=== PATIENT | female | born 1950 | race Caucasian/White ===

== ENCOUNTER 2021-06-16 18:31 | Outpatient (CLI) | payer MEDICAID, SELFPAY ==
[2021-06-16 19:30] LABS: Basophils % 0.3 %; Eosinophils % 0.3 %; Lymphocytes # 1.5 10^3/uL (0.8-4.8); Lymphocytes % 19.4 %; Mean Corpuscular HGB Conc 24.5 g/dL (30.0-36.0); Mean Corpuscular Hemoglobin 16.2 pg (28.0-34.0); Mean Corpuscular Volume 66.2 fl (81-99); Mean Platelet Volume 9.9 fL (7.4-10.4); Monocytes # 0.6 10^3/uL (0.2-0.9); Monocytes % 7.4 %; Neutrophils # 5.44 10^3/uL (1.8-7.7); Neutrophils % 70.8 %; Nucleated Red Blood Cells # 0.1 /100WBC; Nucleated Red Blood Cells % 1.4 %; Platelet Count 518 10^3/cmm (130-400); Red Blood Count 2.22 10^6/uL (4.1-5.3); Red Cell Distribution Width 19.1 % (12.1-15.1); White Blood Count 7.7 10^3/uL (4.0-10.0)
[2021-06-16 19:52] LABS: Anion Gap 16.7 (5-19); Blood Urea Nitrogen 6 mg/dL (8-23); Calcium 8.6 mg/dL (8.5-10.5); Carbon Dioxide 22 mmol/L (22-29); Chloride 101 mmol/L (98-107); Glucose 138 mg/dL (65-115); Osmolality Calculated 282 mOsm/kg (285-295); Potassium 3.7 mmol/L (3.5-5.1); Sodium 136 mmol/L (136-145); Thyroid Stimulating Hormone 1.52 uIU/mL (0.27-4.20)
[2021-06-16 19:59] LABS: Hematocrit 14.7 % (37.0-47.0); Hemoglobin 3.6 g/dL (11.5-15.3)
== END 2021-06-16 18:32 | disposition home or self-care (01) ==
PROVIDERS: Family Provider Internal Medicine; Visit Provider Internal Medicine
DX: D50.9 Iron deficiency anemia, unspecified (principal); R91.8 Other nonspecific abnormal finding of lung field
CPT/HCPCS: 80048; 84443; 85025

== ENCOUNTER 2021-06-16 21:22 | Inpatient (IN) | payer MEDICAID, SELFPAY ==
--- NOTE | 2021-06-16 03:22 | XRR_ITS ---
PROCEDURE INFORMATION: Exam: XR Chest Exam date and time: 06/16/2021 3:22 AM Age: 70 years old Clinical indication: Pain; Chest pressure; Additional info: SOB TECHNIQUE: Imaging protocol: XR of the chest. Views: 1 view. COMPARISON: No relevant prior studies available. FINDINGS: The patient is rotated. There is some infiltrate within the left lung base. There appear to be small pleural effusions. There is no pneumothorax. The heart size is prominent which may be due to the AP portable technique. XR/XR chest 1V portable [id number] IMPRESSION: 1. Mild infiltrate within the left lung base. 2. There appear to be small pleural effusions. 3. Prominent heart size. Radiation Dose CTDIVOL = (mGy): DLP = (mGy-cm)
--- NOTE | 2021-06-16 21:27 | ECG_ITS ---
[facility] Test Date: 2021-06-16 Pat Name: Josiah Mohr Department: Room: Gender: Female Clinical Training Coordinator: : 1950 Requested By: Yoni Najera Order Number: [id number] Janeth MD: Rossana Martínez M.D. Measurements Intervals [place] Rate: 106 P: 46 AK: 141 QRS: 33 QRSD: 77 T: 33 QT: 346 QTc: 461 Interpretive Statements SINUS TACHYCARDIA MODERATE ST DEPRESSION [0.05+ mV ST DEPRESSION] No previous ECG available for comparison Electronically Signed On 06-17-2021 13:12:54 COOK CANDY by Rossana Martínez M.D. [id number]
[2021-06-16 21:30] VITALS: BP 141/79; PULSE 85; RESP 18; TEMP 36.4; O2SAT 98; BMI 26.8
[2021-06-16 21:32] LABS: Basophils % 0.1 %; Eosinophils % 0.3 %; Lymphocytes # 1.6 10^3/uL (0.8-4.8); Lymphocytes % 22.3 %; Mean Corpuscular HGB Conc 23.7 g/dL (30.0-36.0); Mean Corpuscular Volume 67.6 fl (81-99); Mean Platelet Volume 10.1 fL (7.4-10.4); Monocytes # 0.6 10^3/uL (0.2-0.9); Monocytes % 8.9 %; Neutrophils # 4.85 10^3/uL (1.8-7.7); Neutrophils % 67.2 %; Nucleated Red Blood Cells # 0.1 /100WBC; Nucleated Red Blood Cells % 1.7 %; Platelet Count 465 10^3/cmm (130-400); Red Blood Count 2.25 10^6/uL (4.1-5.3); Red Cell Distribution Width 19.2 % (12.1-15.1); White Blood Count 7.2 10^3/uL (4.0-10.0)
[2021-06-16 21:34] LABS: Hematocrit 15.2 % (37.0-47.0); Hemoglobin 3.6 g/dL (11.5-15.3)
[2021-06-16 21:47] LABS: INR 1.08 (0.8-1.2)
[2021-06-16 21:56] LABS: Alanine Aminotransferase 10 U/L (0-33); Albumin Level 3.7 g/dL (3.5-5.2); Alkaline Phosphatase 68 IU/L (35-105); Anion Gap 20.6 (5-19); Aspartate Amino Transferase 12 U/L (0-32); Blood Urea Nitrogen 6 mg/dL (8-23); Calcium 8.3 mg/dL (8.5-10.5); Carbon Dioxide 19 mmol/L (22-29); Chloride 99 mmol/L (98-107); Globulin 2.4 g/dL (1.3-4.6); Glucose 146 mg/dL (65-115); Osmolality Calculated 280 mOsm/kg (285-295); Potassium 3.6 mmol/L (3.5-5.1); Sodium 135 mmol/L (136-145); Total Bilirubin 0.3 mg/dL (0.15-1.2); Total Protein 6.1 g/dL (6.6-8.7)
[2021-06-16] MEDS: acetaminophen 325 mg Tablet 650 MG PO (22:27)
[2021-06-16] MEDS: diphenhydrAMINE 50 mg/mL SDV 1mL 12.5 MG IVP (22:28)
[2021-06-16] MEDS: sodium chloride 0.9% 100 mL Bag 50 ML IV (22:28)
--- NOTE | 2021-06-16 23:50 | P.HP_ITS ---
Providers/Chief Complaint Chief Complaint: Abnormal Labs History of Present Illness Josiah Mohr is a 70 year old female with prior history of anemia requiring blood and iron transfusions who is presenting to emergency room with complaints of generalized weakness and tiredness since last several weeks. He reports progressive worsening of her symptoms. She denies any associated rectal blood or black stool, nausea or vomiting, headache, chest pain, shortness of breath, fever or chills. She never had colonoscopies before. According to her she was never told before why she had anemia. The patient denies taking NSAIDs, blood thinners. No alcohol. Denies any weight loss. Review of Systems General: Reports: 10 or more systems reviewed and unremarkable except in HPI and below Medications/Allergies Allergies Allergy/AdvReac Type Severity Reaction Status Date / Time No Known Allergies Allergy Verified 06/16/21 21:29 Vitals/I&O/Wt Last Vital Signs Temp 97.6 F 06/16/21 21:30 Pulse 85 06/16/21 21:30 Resp 18 06/16/21 21:30 BP 141/79 06/16/21 21:30 Pulse Ox 98 06/16/21 21:30 Weight last 48 hrs Weight 75.296 kg Physical Exam Narrative: EXAM NARRATIVE: The patient is awake alert oriented. No acute distress. Mood and affect are appropriate. Responses are adequate. Normal speech. Skin warm and dry. Moist mucous brains Eyes PERRL, extraocular muscles are intact Neck supple. No JVD Lungs are clear to auscultation bilaterally. No wheezes or crackles Heart S1, S2, regular Abdomen soft, nontender, bowel sounds are present Extremities 2+ edema no cyanosis no calf tenderness bilaterally Neuro examination is nonfocal. Data : 06/16/21 21:22 06/16/21 21: Other Labs: Laboratory Results WBC 7.2 10^3/uL (4.0-10.0) 06/16/21 21: RBC 2.25 10^6/uL (4.1-5.3) L 06/16/21 21: Hgb 3.6 g/dL (11.5-15.3) L* 06/16/21 21: Hct 15.2 % (37.0-47.0) L* 06/16/21 21: MCV 67.6 fl (81-99) L 06/16/21 21: MCH 16.0 pg (28.0-34.0) L 06/16/21 21: MCHC 23.7 g/dL (30.0-36.0) L 06/16/21 21: RDW 19.2 % (12.1-15.1) H 06/16/21 21: Plt Count 465 10^3/cmm (130-400) H 06/16/21 21: MPV 10.1 fL (7.4-10.4) 06/16/21 21: Neut % (Auto) 67.2 % 06/16/21 21: Lymph % (Auto) 22.3 % 06/16/21 21: [place] % (Auto) 8.9 % 06/16/21 21: Eos % (Auto) 0.3 % 06/16/21 21: Baso % (Auto) 0.1 % 06/16/21 21: Neut # (Auto) 4.85 10^3/uL (1.8-7.7) 06/16/21 21: Lymph # (Auto) 1.6 10^3/uL (0.8-4.8) 06/16/21 21: [place] # (Auto) 0.6 10^3/uL (0.2-0.9) 06/16/21 21: Eos # (Auto) 0.0 10^3/uL (0.0-0.8) 06/16/21 21: Baso # (Auto) 0.0 10^3/uL (0.0-0.1) 06/16/21: Nucleated RBC % (auto) 1.7 % 06/16/21: Nucleated RBCs # 0.1 /100WBC 06/16/21 21: PT 14.30 SECONDS (12.1-14.9) 06/16/21 21: INR 1.08 (0.8-1.2) 06/16/21 21: APTT 20.0 SECONDS (23.9-36.7) L 06/16/21 21: Sodium 135 mmol/L (136-145) L 06/16/21 21: Potassium 3.6 mmol/L (3.5-5.1) 06/16/21: Chloride 99 mmol/L (98-107) 06/16/21 21: Carbon Dioxide 19 mmol/L (22-29) L 06/16/21 21: Anion Gap 20.6 (5-19) H 06/16/21 21: BUN 6 mg/dL (8-23) L 06/16/21 21: Creatinine 0.6 mg/dL (0.5-0.9) 06/16/21 21: GFR Calculation Not Reportable 06/16/21 21: Glucose 146 mg/dL (65-115) H 06/16/21 21: Calculated Osmolality 280 mOsm/kg (285-295) L 06/16/21 21: Calcium 8.3 mg/dL (8.5-10.5) L 06/16/21 21: Total Bilirubin 0.3 mg/dL (0.15-1.2) 06/16/21 21: AST 12 U/L (0-32) 06/16/21: ALT 10 U/L (0-33) 06/16/21 21: Alkaline Phosphatase 68 IU/L (35-105) 06/16/21 21: Total Protein 6.1 g/dL (6.6-8.7) L 06/16/21: Albumin 3.7 g/dL (3.5-5.2) 06/16/21 21: Globulin 2.4 g/dL (1.3-4.6) 06/16/21 21: Blood Type O Negative 06/16/21 21: Rho(D) Type Negative 06/16/21 21: Antibody Screen Negative 06/16/21 21: Crossmatch See Detail 06/16/21 21: Impressions Chest X-Ray 06/16/21 03:22 IMPRESSION: 1. Mild infiltrate within the left lung base. 2. There appear to be small pleural effusions. 3. Prominent heart size. Radiation Dose CTDIVOL = (mGy): DLP = (mGy-cm) A&P Assessment and plan (1) Microcytic anemia: Status: Acute (2) Infiltrate noted on imaging study: Status: Acute Additional A&P Information This is a 70-year-old female presenting with anemia. It is microcytic. Iron deficiency is suspected. 3 units of PRBCs are ordered in the emergency room. She is currently stable. She will go to [facility] for observation. Will order anemia work-up including fecal occult blood testing. Depending on the findings additional testing might be necessary. Lung infiltrate. The patient does not have any evidence of infection at this time. We will check her procalcitonin level. Probably she will need follow-up chest x-ray in several weeks by the primary care physician. Please notify her prior to discharge. DVT prophylaxis. Teds and SCDs. No anticoagulation due to her severe anemia. CODE STATUS. She wants to be full code. The plan of care was discussed with the patient. She verbalized understanding and agreement. Attestations Medical Necessity Statement*: Observation Coding Level of Care Code Acute Field Producer for Noel Huerta Diagnoses Microcytic anemia D50.9 Infiltrate noted on imaging study R93.89
[2021-06-17] VITALS (14 sets, daily range): BP systolic 128–164; BP diastolic 60–90; PULSE 81–104; RESP 16–32; TEMP 36.8–37.5; O2SAT 91–99; BMI 27.8
[2021-06-17 01:20] LABS: Ferritin 8 ng/mL (15-150); Iron 9 ug/dL (37-145); Total Iron Binding Capacity 445 mcg/dl; Unsaturated Iron Binding 436 ug/dL (112-347)
[2021-06-17 01:29] LABS: Vitamin B12 495 pg/mL (232-1245)
--- NOTE | 2021-06-17 01:34 | W.ED.GENADLT ---
HPI - General Adult General: Chief complaint: General Medical Stated complaint: Abnormal Labs History of Present Illness: HPI narrative: 70-year-old retirement patient presents because of abnormal labs. She states that she has been generally weak, and had some palpitations. Her hemoglobin was found to be between 3 and 4 at the retirement. No known source of bleeding or hemorrhage. Onset (ago): unknown Radiation: other Quality: other Relieving factors: none Exacerbating factors: none Associated symptoms: Reports confusion, dyspnea and short of breath; Deny chest pain, cough, fevers/chills, headache(s) or vomiting Treatments prior to arrival: none Review of Systems Const: Denies: fever(s) Card: Denies: chest pain Resp: Reports: dyspnea GI: Denies: abdominal pain, vomiting, rectal pain or hematochezia Neuro: Reports: confusion; Denies: headache(s) Physical Exam Const: COMMON NORMALS: alert GENERAL APPEARANCE: cooperative, comfortable and frail appearing HENMT: COMMON NORMALS: normocephalic HEAD & SCALP: normocephalic Eye: COMMON NORMALS: Equal, round and reactive pupils present and EOMs intact bilaterally PUPIL: Yes Equal, round and reactive pupils present Chest: COMMONS NORMALS: normal inspection of the chest Resp: COMMON NORMALS: clear to auscultation bilaterally EFFORT & INSPECTION: Yes tachypneic and Yes uses accessory muscles AUSCULTATION: clear to auscultation bilaterally Cardio: COMMON NORMALS: regular rhythm RATE: tachycardic RHYTHM: regular rhythm GI: COMMON NORMALS: Normal to inspection, nondistended, normoactive bowel sounds present, Soft to palpation and non-tender PALPATION: Yes Soft to palpation : COMMON NORMALS: Yes no CVA tenderness BLADDER/KIDNEY EXAM: Yes no CVA tenderness Back/Pelvis: COMMON NORMALS: no CVA tenderness Neuro: SENSORIUM/ORIENTATION: Yes alert Course Consultations: Consultation #1: bubba Vital Signs: Vital signs: Vital Signs Temperature 99.1 F 06/17/21 00:05 Pulse Rate 103 H 06/17/21 00:05 Respiratory Rate 32 H 06/17/21 00:05 Blood Pressure 128/60 06/17/21 00:05 Pulse Oximetry 93 06/17/21 00:05 MDM - General Adult MDM Narrative: Medical decision making narrative: Hemoglobin found to be 3.6. Microcytic. No definite cause identified. No gross hemorrhage here. Will guaiac stool. She has been crossmatched 3 units from the ER. Transfusion started in the ER. She will be observed. Lab Data: Labs: Lab Results 06/16/21 06/16/21 06/16/21 21:22 21:22 21:22 WBC 7.2 10^3/uL 10^3/ uL (4.0-10.0) RBC 2.25 10^6/uL L 10 ^6/uL (4.1-5.3) Hgb 3.6 g/dL L* g/dL (11.5-15.3) Hct 15.2 % L* % (37.0-47.0) MCV 67.6 fl L fl (81-99) MCH 16.0 pg L pg (28.0-34.0) MCHC 23.7 g/dL L g/dL (30.0-36.0) RDW 19.2 % H % (12.1-15.1) Plt Count 465 10^3/cmm H 10 ^3/cmm (130-400) MPV 10.1 fL fL (7.4-10.4) Neut % (Auto) 67.2 % % Lymph % (Auto) 22.3 % % [place] % (Auto) 8.9 % % Eos % (Auto) 0.3 % % Baso % (Auto) 0.1 % % Neut # (Auto) 4.85 10^3/uL 10^3 /uL (1.8-7.7) Lymph # (Auto) 1.6 10^3/uL 10^3/ uL (0.8-4.8) [place] # (Auto) 0.6 10^3/uL 10^3/ uL (0.2-0.9) Eos # (Auto) 0.0 10^3/uL 10^3/ uL (0.0-0.8) Baso # (Auto) 0.0 10^3/uL 10^3/ uL (0.0-0.1) Nucleated RBC % (a uto) 1.7 % % Nucleated RBCs # 0.1 /100WBC /100W BC PT INR APTT Sodium 135 mmol/L L mmol /L (136-145) Potassium 3.6 mmol/L mmol/L (3.5-5.1) Chloride 99 mmol/L mmol/L (98-107) Carbon Dioxide 19 mmol/L L mmol/ L (22-29) Anion Gap 20.6 H (5-19) BUN 6 mg/dL L mg/dL (8-23) Creatinine 0.6 mg/dL mg/dL (0.5-0.9) GFR Calculation Not Reportable Glucose 146 mg/dL H mg/dL (65-115) Calculated Osmolal ity 280 mOsm/kg L mOs m/kg (285-295) Calcium 8.3 mg/dL L mg/dL (8.5-10.5) Iron TIBC % Saturation Unsat Iron Binding Ferritin Total Bilirubin 0.3 mg/dL mg/dL (0.15-1.2) AST 12 U/L U/L (0-32) ALT 10 U/L U/L (0-33) Alkaline Phosphata se 68 IU/L IU/L (35-105) Total Protein 6.1 g/dL L g/dL (6.6-8.7) Albumin 3.7 g/dL g/dL (3.5-5.2) Globulin 2.4 g/dL g/dL (1.3-4.6) Vitamin B12 Blood Type O Negative Rho(D) Type Negative Antibody Screen Negative Crossmatch See Detail 06/16/21 06/16/21 06/16/21 21:22 21:22 21:22 WBC RBC Hgb Hct MCV MCH MCHC RDW Plt Count MPV Neut % (Auto) Lymph % (Auto) [place] % (Auto) Eos % (Auto) Baso % (Auto) Neut # (Auto) Lymph # (Auto) [place] # (Auto) Eos # (Auto) Baso # (Auto) Nucleated RBC % (a uto) Nucleated RBCs # PT 14.30 SECONDS SEC ONDS (12.1-14.9) INR 1.08 (0.8-1.2) APTT 20.0 SECONDS L SE CONDS (23.9-36.7) Sodium Potassium Chloride Carbon Dioxide Anion Gap BUN Creatinine GFR Calculation Glucose Calculated Osmolal ity Calcium Iron 9 ug/dL L ug/dL (37-145) TIBC 445 mcg/dl mcg/dl % Saturation 2.0 % L % (20-50) Unsat Iron Binding 436 ug/dL H ug/dL (112-347) Ferritin 8 ng/mL L ng/mL (15-150) Total Bilirubin AST ALT Alkaline Phosphata se Total Protein Albumin Globulin Vitamin B12 495 pg/mL pg/mL (232-1245) Blood Type Rho(D) Type Antibody Screen Crossmatch Discharge Plan Discharge Patient Disposition: Placed in Observation Clinical Impression: Microcytic anemia Coding Level of Care Code ED Commercial Property Administrator for Noel Fwd Exam Comprehensive
--- NOTE | 2021-06-17 07:05 | PC.NURSE ---
report recieved assumed care.
--- NOTE | 2021-06-17 07:22 | PC.NURSE ---
while at bedside pt is in nad.
[2021-06-17] MEDS: calcium gluconate 0.1 gm/mL 10% SDV 10mL 1 GM IVP (07:28)
[2021-06-17 07:46] LABS: Basophils % 0.3 %; Eosinophils # 0.1 10^3/uL (0.0-0.8); Eosinophils % 0.7 %; Hematocrit 24.3 % (37.0-47.0); Lymphocytes # 1.4 10^3/uL (0.8-4.8); Lymphocytes % 18.7 %; Mean Corpuscular HGB Conc 28.8 g/dL (30.0-36.0); Mean Corpuscular Hemoglobin 21.6 pg (28.0-34.0); Mean Platelet Volume 9.8 fL (7.4-10.4); Monocytes # 0.7 10^3/uL (0.2-0.9); Monocytes % 9.3 %; Neutrophils # 4.77 10^3/uL (1.8-7.7); Neutrophils % 66.1 %; Nucleated Red Blood Cells # 0.2 /100WBC; Nucleated Red Blood Cells % 2.5 %; Platelet Count 411 10^3/cmm (130-400); Red Blood Count 3.24 10^6/uL (4.1-5.3); Red Cell Distribution Width 22.1 % (12.1-15.1); White Blood Count 7.2 10^3/uL (4.0-10.0)
[2021-06-17 08:08] LABS: Anion Gap 14.5 (5-19); Blood Urea Nitrogen 8 mg/dL (8-23); Calcium 8.2 mg/dL (8.5-10.5); Carbon Dioxide 23 mmol/L (22-29); Chloride 103 mmol/L (98-107); Glucose 113 mg/dL (65-115); Osmolality Calculated 283 mOsm/kg (285-295); Potassium 3.5 mmol/L (3.5-5.1); Sodium 137 mmol/L (136-145)
[2021-06-17 08:13] LABS: Procalcitonin 0.07 ng/mL (0-0.5)
--- NOTE | 2021-06-17 08:16 | PC.NURSE ---
blood infusion complete.
--- NOTE | 2021-06-17 08:16 | PC.NURSE ---
paged hospitalist to inform him of pt breathing that is labored and tachypniec.
[2021-06-17] MEDS: acetaminophen 325 mg Tablet 650 MG PO (08:29)
[2021-06-17] MEDS: docusate sodium 100 mg Capsule PO ×2 (08:30→17:29)
--- NOTE | 2021-06-17 08:47 | PC.NURSE ---
PC FROM DR. ALANIS INFORMED HIM OF PT BREATHING STATUS AND SWELLING VO FOR IV 20MG LASIX ONE TIME.
[2021-06-17] MEDS: FUROsemide 10 mg/mL SDV 2mL 20 MG IVP ×2 (09:12→18:18)
--- NOTE | 2021-06-17 09:12 | PC.NURSE ---
PT PROVIDED WITH ORANGE JUICE AND ASSISTED WITH OPENING AND PROVIDED WITH STRAW. PT TABLE ADJUSTED PER PT REQUEST.
--- NOTE | 2021-06-17 11:39 | PC.NURSE ---
while at doorway pt is in nad. pt is resting in bed.
[2021-06-17 12:12] LABS: Folate Level 8.2 ng/mL (4.8-37.3)
--- NOTE | 2021-06-17 12:18 | PC.NURSE ---
attempted report nurse unavailable.
[2021-06-17] MEDS: FUROsemide 10 mg/mL SDV 4mL 40 MG IVP (13:32)
[2021-06-17 14:29] LABS: Estmated Average Glucose 94; Hemoglobin A1C 4.9 % (4.0-6.0)
[2021-06-17] MEDS: iron sucrose 200 MG in sodium chloride 0.9% (100 ml) 100 ML 220 MG IV (15:30)
--- NOTE | 2021-06-17 15:39 | PM.CONSULT ---
Providers/Reason For Consult Consulting Physician/Specialty*: Amol Luu MD Reason for Consult*: Iron deficiency anemia Requesting Physician: Dr. Doll Attending Physician: Kedar Doll MD History of Present Illness History of Present Illness Chief Complaint: Generalized weakness History of present illness: Ms.Byrdilla Mohr is a pleasant 70 year old female presented to the emergency department with generalized weakness and has been having this condition for the past several weeks or so. Patient was admitted to the hospitalist service with a hemoglobin of 3.6 g patient required 3 units of packed RBC so far and current hemoglobin is 7.0. There is no evidence of hematemesis or bleeding per rectum. Patient apparently never had endoscopies before. She never had a hematology consultation in the past. She also denies history of peptic ulcer disease. General surgery was consulted for further evaluation potential care Review of Systems General: Reports: 10 or more systems reviewed and unremarkable except in HPI and below Meds/Allergies Home Medications and Allergies Home Medications Medication Instructions Recorded Confirmed Last Taken Type acetaminophen 650 mg PO Q4H PRN 06/17/21 06/17/21 06/12/21 History aspirin 81 mg PO DAILY 06/17/21 06/17/21 06/16/21 History bisacod[address] DAILY PRN 06/17/21 06/17/21 Unknown History bismuth subsalicylate [Bismuth] 524 mg PO Q1H PRN 06/17/21 06/17/21 Unknown History calcium carbonate-vitamin D3 1 cap PO BID 06/17/21 06/17/21 06/16/21 History furosemide [Lasix] 20 mg PO DAILY 06/17/21 06/17/21 06/16/21 History loratadine 10 mg PO DAILY 06/17/21 06/17/21 06/16/21 History magnesium hydroxide [Milk of 30 ml PO DAILY PRN 06/17/21 06/17/21 Unknown History Magnesia] risperidone 0.5 mg PO BID 06/17/21 06/17/21 06/16/21 History sodium phosphates [Fleet Enema] [address] DAILY PRN 06/17/21 06/17/21 Unknown History Allergies Allergy/AdvReac Type Severity Reaction Status Date / Time No Known Allergies Allergy Verified 06/17/21 16:24 Current Medications Current Medications Generic Name Dose Route Start Last Admin Trade Name Freq PRN Reason Stop Dose Admin Acetaminophen 650 mg 06/16/21 23:51 06/17/21 08:29 Acetaminophen 325 Mg Tablet PO 650 mg Q6H PRN Administration Mild/Mod Pain Or Temp >/= 101 Docusate Sodium 100 mg 06/17/21 09:00 06/17/21 08:30 Docusate Sodium 100 Mg Capsule PO 100 mg BID SUSAN Administration Iron Sucrose 200 mg/ Sodium 110 mls @ 220 mls/hr 06/17/21 16:00 06/17/21 15:30 Chloride IV 06/21/21 16:29 220 mls/hr Q24H SUSAN Administration Vitals/I&O/Wt Last Vital Signs Temp 98.8 F 06/17/21 12:57 Pulse 99 06/17/21 12:57 Resp 18 06/17/21 12:57 BP 154/77 06/17/21 12:57 Pulse Ox 99 06/17/21 12:57 06/17/21 06/17/21 06/17/21 06:59 14:59 22:59 Intake Total 700 / 700 0 / 0 Output Total 950 / 950 Balance 700 / 700 -950 / -950 Weight last 48 hrs Weight 172 lb 4 oz Weight 166 lb Physical Exam Const: COMMON NORMALS: no acute distress and patient oriented x3 GENERAL APPEARANCE: cooperative ORIENTATION/CONSCIOUSNESS: Yes awake, Yes oriented to person, Yes oriented to place and Yes oriented to time HENMT: COMMON NORMALS: normocephalic HEAD & SCALP: normocephalic Eye: COMMON NORMALS: Equal, round and reactive pupils present and no scleral icterus PUPIL: Yes Equal, round and reactive pupils present Lymph: LYMPHATIC: no lymphadenopathy noted Chest: COMMONS NORMALS: normal inspection of the chest Resp: COMMON NORMALS: normal respiratory effort and clear to auscultation bilaterally AUSCULTATION: clear to auscultation bilaterally Cardio: COMMON NORMALS: S1 normal heart sound present and S2 normal heart sound present; negative for No murmurs present (Cardio) HEART SOUNDS: S1 normal heart sound present and S2 normal heart sound present GI: COMMON NORMALS: Soft to palpation; negative for No hepatosplenomegaly present INSPECTION: Yes normal to inspection PALPATION: Yes Soft to palpation, No Firmness to palpation present (GI), No Tenderness to palpation present (GI), No Guarding due to palpation present (GI), No Rigid due to palpation and No No hepatosplenomegaly present Neuro: COMMON NORMALS: patient oriented x3 SENSORIUM/ORIENTATION: Yes oriented to person, Yes oriented to place and Yes oriented to time Psych: COMMON NORMALS: mental status grossly normal Skin: COMMON NORMALS: no rashes or lesions noted GENERAL SKIN EXAM: no rashes or lesions noted A&P Assessment and plan (1) Microcytic anemia: After thorough history physical examination and reviewing the chart. I would recommend the following from surgical standpoint of view: 1-Hematology consultation 2-patient will require at some point elective EGD and colonoscopy as an outpatient basis,I do not see an indication for urgency to perform endoscopies particularly that the patient does not demonstrate any evidence of GI bleeding. 3-we will plan to see the patient as a follow-up as an outpatient 4-I will make myself available for further questions or concerns Patient can have soft GI diet Thank you for consulting general surgery to participate taking care Status: Acute Consult Attestations Medical Necessity Statement: Per admitting service Time Spent in Patient Care: 16 - 35 minutes (>than 50% of time spent in counselling and/or direct pt care on unit). Coding Level of Care Code Acute Junior Staff Accountant for Chg Fwd Diagnoses Microcytic anemia D50.9
--- NOTE | 2021-06-17 17:13 | P.PN_ITS ---
Subjective Subjective: Interval history: Patient was seen and examined this morning, was slightly short of breath after transfusion. Received 60 of IV Lasix. Post that SOB has improved Medications: Reviewed: Yes Vitals/I&O/Wt Last Vital Signs Temp 98.4 F 06/17/21 16:00 Pulse 97 06/17/21 16:00 Resp 17 06/17/21 16:00 BP 157/84 06/17/21 16:00 Pulse Ox 98 06/17/21 16:00 06/17/21 06/17/21 06/17/21 06:59 14:59 22:59 Intake Total 700 / 700 0 / 0 110 / 110 Balance 700 / 700 0 / 0 110 / 110 Weight last 48 hrs Weight 78.131 kg Weight 75.296 kg Physical Exam Const: COMMON NORMALS: patient oriented x3 HENMT: COMMON NORMALS: normocephalic and atraumatic HEAD & SCALP: normocephalic and atraumatic Resp: COMMON NORMALS: clear to auscultation bilaterally EFFORT & INSPECTION: Yes symmetric chest movement AUSCULTATION: clear to auscultation bilaterally Cardio: COMMON NORMALS: regular rate, regular rhythm, S1 normal heart sound present, S2 normal heart sound present, No gallops present (Cardio), No murmurs present (Cardio), No rub (Cardio) and Peripheral pulses 2+ throughout RATE: regular rate RHYTHM: regular rhythm HEART SOUNDS: S1 normal heart sound present and S2 normal heart sound present PERIPHERAL PULSES: Peripheral pulses 2+ throughout GI: COMMON NORMALS: Normal to inspection, nondistended, normoactive bowel sounds present, Soft to palpation, non-tender, No hepatosplenomegaly present and no masses AUSCULTATION: Yes normoactive bowel sounds PALPATION: Yes Soft to palpation and Yes No hepatosplenomegaly present RECTAL EXAM: deferred Extremity: COMMON NORMALS: no clubbing, cyanosis or edema and no pedal edema Neuro: COMMON NORMALS: patient oriented x3 Data : 06/17/21 07:22 06/17/21 07:22 A&P Assessment and plan (1) Microcytic anemia: Microcytic iron deficiency anemia: Serum iron:9, TIBC:445, percent saturation:2, ferritin:8 Serum folate:8.2 Serum vitamin B12: Status post 4 unit PRBC transfusion IV iron x5 doses ordered Patient will need to follow-up with hematology as an outpatient for further work-up of microcytic iron deficiency anemia rule out possible malignancy including MDS. Patient will need EGD and colonoscopy as an outpatient.General surgery input appreciated. FOBT Ferrous sulfate 325 mg p.o. daily Continue to monitor CBC Status: Acute (2) Infiltrate noted on imaging study: Status: Acute Additional A&P Information This is a 70-year-old female presenting with anemia. It is microcytic. Iron deficiency is suspected. 3 units of PRBCs are ordered in the emergency room. She is currently stable. She will go to [facility] for observation. Will order anemia work-up including fecal occult blood testing. Depending on the findings additional testing might be necessary. Lung infiltrate. The patient does not have any evidence of infection at this time. We will check her procalcitonin level. Probably she will need follow-up chest x-ray in several weeks by the primary care physician. Please notify her prior to discharge. DVT prophylaxis. Teds and SCDs. No anticoagulation due to her severe anemia. CODE STATUS. She wants to be full code. The plan of care was discussed with the patient. She verbalized understanding and agreement. Attestations Medical Necessity Statement*: Patient is to be in hospital for management of severe symptomatic anemia. Coding Level of Care Code Acute Braider Operator for Noel Huerta Diagnoses Microcytic anemia D50.9 Infiltrate noted on imaging study R93.89
[2021-06-17] MEDS: sennosides 8.6 mg Tablet 17.2 MG PO (20:35)
[2021-06-18] VITALS (7 sets, daily range): BP systolic 115–142; BP diastolic 68–77; PULSE 80–120; RESP 16–18; TEMP 36.6–37.4; O2SAT 91–97
[2021-06-18] MEDS: sodium chloride 0.9% (100 ml) 100 ML (05:12)
[2021-06-18 06:25] LABS: Basophils # 0.1 10^3/uL (0.0-0.1); Basophils % 0.5 %; Eosinophils # 0.2 10^3/uL (0.0-0.8); Eosinophils % 1.5 %; Hemoglobin 9.7 g/dL (11.5-15.3); Lymphocytes # 1.3 10^3/uL (0.8-4.8); Lymphocytes % 12.3 %; Mean Corpuscular HGB Conc 29.4 g/dL (30.0-36.0); Mean Corpuscular Volume 78.4 fl (81-99); Mean Platelet Volume 9.3 fL (7.4-10.4); Monocytes # 0.8 10^3/uL (0.2-0.9); Neutrophils % 75.9 %; Nucleated Red Blood Cells # 0.1 /100WBC; Nucleated Red Blood Cells % 1.2 %; Platelet Count 336 10^3/cmm (130-400); Red Blood Count 4.21 10^6/uL (4.1-5.3); Red Cell Distribution Width 22.1 % (12.1-15.1); White Blood Count 10.5 10^3/uL (4.0-10.0)
[2021-06-18 06:44] LABS: Alanine Aminotransferase 9 U/L (0-33); Albumin Level 3.3 g/dL (3.5-5.2); Alkaline Phosphatase 58 IU/L (35-105); Anion Gap 13.2 (5-19); Aspartate Amino Transferase 13 U/L (0-32); Blood Urea Nitrogen 6 mg/dL (8-23); Carbon Dioxide 25 mmol/L (22-29); Chloride 105 mmol/L (98-107); Globulin 2.7 g/dL (1.3-4.6); Glucose 105 mg/dL (65-115); Osmolality Calculated 288 mOsm/kg (285-295); Potassium 3.2 mmol/L (3.5-5.1); Sodium 140 mmol/L (136-145)
[2021-06-18 07:02] LABS: Calcium 8.1 mg/dL (8.5-10.5)
[2021-06-18 07:49] LABS: Folate Level 10.1 ng/mL (4.8-37.3)
[2021-06-18 07:50] LABS: Vitamin B12 366 pg/mL (232-1245)
[2021-06-18] MEDS: docusate sodium 100 mg Capsule PO (08:17)
[2021-06-18] MEDS: ferrous sulfate EC 325 mg Tablet PO (08:18)
--- NOTE | 2021-06-18 09:44 | PC.CHAP ---
Pastoral Care Encounter/Spiritual Assessment Type of Contact [] Declined outpatient coding specialist visit [] Patient/Family/Request visit [] Outpatient visit [] Follow-up visit [] Physician referral [] Code/Alert [x] Routine visit [] Staff referral [] Actively dying [] Patient sleeping [] Family support [] [] Out of room [] Palliative care [] [] Receiving care in room [] Pre-surgical visit [] Trauma [] Long length of stay [] ICU visit [] Other: Relational/Emotional Strength [x] Patient feels connected with others/family/visitors/staff [] Distress [] Loneliness/isolation [] Abandonment Spirituality of Patient [] Person of Melvi [] Attends Voodoo of their Melvi [x] Believes in Prayer [] Reads Bible or Baptism materials [] There are Spiritual issues to be addressed Live Hanger Interventions [x] Prayer [x] Active listening [] Non-anxious presence [] Spiritual/emotional support [] Crisis/trauma care [] Spiritual counseling [] Bereavement support [] Provided bereavement packet [] Provided Bible/devotional materials [] Provided toy/stuffed animal, coloring book to patient or family member [] Provided Communion [] Anointing/[place] [] Salvation [x] Completed spiritual assessment [] Other: Impact on Illness or Injury [] Angry [] Fearful [] Anxious [] Often cries [] Exhaustion [] Unable to work [] Unable to attend gnosticist [] Unable to walk/stand [] Unable to read [] Unable to drive [] Unable to eat/drink [] Unable to sleep [] Unable to be with family [] Patient intubated [] Other: Summary reported mental issues to nurses Time spent with patient 5 favio
--- NOTE | 2021-06-18 10:31 | CT_ITS ---
WS: [id number] CT ABDOMEN PELVIS TECHNIQUE: Noncontrast CT of the abdomen and pelvis with coronal and sagittal reformatted images. CLINICAL INFORMATION: severe anemia COMPARISON: DLP: 1417.[address] scans at [facility] use at least one of these dose optimization techniques: automated e xposure control; mA and/or kV adjustment per patient size (includes targeted exams where dose is matc hed to clinical indication); or iterative reconstruction. FINDINGS: Small left greater than right pleural effusions. Bibasilar atelectasis. Large esophageal hiatal herni a with intrathoracic stomach. Noncontrast liver is normal. Normal noncontrast gallbladder. Fatty atro phy of the pancreas. Adrenal glands are normal. No hydronephrosis in either kidney. Fat-containing um bilical hernia. Mild diffuse bladder wall thickening can be seen with chronic cystitis. Sigmoid diverticulosis. No ev idence of acute diverticulitis. Mild transverse colon constipation. Normal appendix in the right lowe r quadrant. Normal caliber abdominal aorta. Aortic calcification. Adrenal glands are normal. No obstr ucting renal or ureteral calculi. Pelvic phleboliths. CT/CT abdomen pelvis wo con [id number] IMPRESSION: 1. Small left and tiny right pleural effusion with bibasilar atelectasis. 2. Large esophageal hiatal hernia with intrathoracic stomach. 3. No hydronephrosis in either kidney. 4. Mild transverse colon constipation. 5. Diffuse bladder wall thickening can be seen with chronic cystitis. 6. No other significant findings.
--- NOTE | 2021-06-18 11:39 | USCV_ITS ---
Josiah Mohr Age: 70 Gender: F : 1950 Exam Date: 06/18/2021 15:41 Ordering Phys: Xavier Dewey MD Technologist: Herlinda Gonzalez Exam Location: [facility] [place]_ Indication: RUE SWELLING HISTORY: Upper extremity swelling. PROCEDURES: Venous duplex imaging was performed in only the right upper extremity. The following venous structures were evaluated: internal jugular vein, subclavian vein, axillary vein, and brachial veins. In addition, the basilic vein, cephalic vein, radial vein, and ulnar vein. Serial compression, augmentation maneuvers, and spectral Doppler flow evaluation were performed. FINDINGS: No evidence of deep vein thrombosis or superficial thrombophlebitis in the right upper extremity. CONCLUSIONS No evidence of thrombus of the right upper extremity veins. Alberto Miles MD (Electronically Signed) Final Date: 18 June 2021 16:25 S
--- NOTE | 2021-06-18 14:30 | PM.DCS ---
Discharge Providers Date of Admission: 06/17/21 15:00 Date of Discharge: June 18, 2021 Attending Provider at Admission: Kedar Doll MD Attending Provider at Discharge: Xavier Dewey MD Diagnoses at Discharge Discharge Diagnosis (1) Microcytic anemia: Status: Acute (2) Infiltrate noted on imaging study: Status: Acute Reason for Visit Reason for Visit: Abnormal Labs Hospital Course Hospital Course This is a 70-year-old female with a past medical history of iron deficiency anemia requiring blood and iron transfusions, who presents [facility] from [facility] due to concerns for generalized weakness Patient presents to [facility] for generalized malaise secondary to severe iron deficiency anemia, history of iron 9, ferritin 8, TIBC 445, percent saturation 2, hemoglobin admission was 3.6, status post 4 units PRBC, patient clinically improved, CT of the abdomen pelvis showed large esophageal hiatal hernia with intrathoracic stomach, no complaints of abdominal pain, no clinical signs of incarcerated hernia. General surgery was consulted, general surgery recommended outpatient follow-up for consideration of EGD colonoscopy I discharged her on Protonix and Carafate. Her aspirin has been discontinued. Advised [facility] to monitor hemoglobin the next 48 hours. Monitor for bloody or black stools. If hemoglobin less than 7 or if any bloody or black stools or hemodynamic compromise bring back to the emergency room. I have also discharged on 3 remaining doses of IV Venofer. Patient will follow up with hematology oncology as outpatient in the next few days. Physical Exam Const: COMMON NORMALS: no acute distress and patient oriented x3 Resp: COMMON NORMALS: normal respiratory effort, No retractions, No use of accessory muscles and clear to auscultation bilaterally AUSCULTATION: clear to auscultation bilaterally Cardio: COMMON NORMALS: regular rate, regular rhythm, S1 normal heart sound present and S2 normal heart sound present RATE: regular rate RHYTHM: regular rhythm HEART SOUNDS: S1 normal heart sound present and S2 normal heart sound present GI: COMMON NORMALS: Normal to inspection, nondistended, normoactive bowel sounds present, Soft to palpation and non-tender PALPATION: Yes Soft to palpation Extremity: COMMON NORMALS: no pedal edema Neuro: COMMON NORMALS: patient oriented x3 Discharge Data Data Completed and Pending: Completed Studies During Hospitalization Category Date Time Status CT abdomen pelvis wo con [id number] Rout ine Cat Scan 06/18/21 10:31 Completed XR chest 1V morales ble [id number] Stat Exams 06/16/21 03:22 Completed Pending at discharge Category Date Time Status Complete Blood Co unt w/Auto AM LABS Lab 06/19/21 04:00 Ordered Complete Blood Co unt w/Auto AM LABS Lab 06/20/21 04:00 Ordered Comprehensive Met abolic Panel AM LA BS Lab 06/19/21 04:00 Ordered Comprehensive Met abolic Panel AM LA BS Lab 06/20/21 04:00 Ordered Immunochemical Fe rk OCB Routine Lab 06/16/21 23:54 [place] [id number] Routin e Ultrasound 06/18/21 11:39 Ordered Labs from last 24 hours 06/18/21 06/18/21 06/18/21 06:01 06:01 06:01 WBC 10.5 H RBC 4.21 Hgb 9.7 L D Hct 33.0 L D MCV 78.4 L MCH 23.0 L MCHC 29.4 L RDW 22.1 H Plt Count 336 MPV 9.3 Neut % (Auto) 75.9 Lymph % (Auto) 12.3 Gulf % (Auto) 8.0 Eos % (Auto) 1.5 Baso % (Auto) 0.5 Neut # (Auto) 8.00 H Lymph # (Auto) 1.3 Gulf # (Auto) 0.8 Eos # (Auto) 0.2 Baso # (Auto) 0.1 Nucleated RBC % (a uto) 1.2 Nucleated RBCs # 0.1 Sodium 140 Potassium 3.2 L Chloride 105 Carbon Dioxide 25 Anion Gap 13.2 BUN 6 L Creatinine 0.5 GFR Calculation Not Reportable Glucose 105 Calculated Osmolal ity 288 Calcium 8.1 L Total Bilirubin 1.0 AST 13 ALT 9 Alkaline Phosphata se 58 Total Protein 6.0 L Albumin 3.3 L Globulin 2.7 Vitamin B12 366 Folate 10.1 Blood Type Rho(D) Type Antibody Screen Crossmatch 06/16/21 21:22 WBC RBC Hgb Hct MCV MCH MCHC RDW Plt Count MPV Neut % (Auto) Lymph % (Auto) Gulf % (Auto) Eos % (Auto) Baso % (Auto) Neut # (Auto) Lymph # (Auto) Gulf # (Auto) Eos # (Auto) Baso # (Auto) Nucleated RBC % (a uto) Nucleated RBCs # Sodium Potassium Chloride Carbon Dioxide Anion Gap BUN Creatinine GFR Calculation Glucose Calculated Osmolal ity Calcium Total Bilirubin AST ALT Alkaline Phosphata se Total Protein Albumin Globulin Vitamin B12 Folate Blood Type O Negative Rho(D) Type Negative Antibody Screen Negative Crossmatch See Detail Vitals: Last Vital Signs Temp 98.5 F 06/18/21 11:39 Pulse 85 06/18/21 11:39 Resp 18 06/18/21 11:39 BP 132/77 06/18/21 11:39 Pulse Ox 95 06/18/21 11:39 Discharge Plan Discharge Patient Disposition: Xfer SNF Condition: Stable Prescriptions: New Venofer 200 mg iron/10 mL solution 200 mg IV Q3D 9 Days Qty: 30 RF: 0 sucralfate [Carafate] 1 gram tablet 1 g PO BID 28 Days Qty: 56 RF: 0 pantoprazole [Protonix] 40 mg tablet,delayed release (DR/EC) 40 mg PO BID 30 Days Qty: 60 RF: 0 Continued acetaminophen 325 mg Tablet 650 mg PO Q4H PRN (Reason: Pain) RF: 0 Milk of Magnesia 400 mg/5 mL Suspension 30 ml PO DAILY PRN (Reason: Constipation) RF: 0 bisacodyl 10 mg Suppository 10 mg TN DAILY PRN (Reason: Constipation) RF: 0 Fleet Enema 19-7 gram/118 mL Enema 118 ml TN DAILY PRN (Reason: Constipation) RF: 0 Lasix 20 mg Tablet 20 mg PO DAILY RF: 0 loratadine 10 mg Tablet 10 mg PO DAILY RF: 0 calcium carbonate-vitamin D3 600 mg (1,500 mg)-2,500 unit Capsule 1 cap PO BID RF: 0 risperidone 0.5 mg Tablet 0.5 mg PO BID RF: 0 Discontinued Bismuth 262 mg/15 mL Suspension 524 mg PO Q1H PRN (Reason: Stomach Upset) RF: 0 aspirin 81 mg Tablet,Chewable 81 mg PO DAILY RF: 0 Discharge Orders: Discharge Order (Routine); Ordered 06/18/21 Ordered By: Xavier Dewey Referrals: Amol Luu MD [Physician] - 2 weeks (Dr. Luu's office will call you to set up an appointment.) Yuval Caal MD [Staff Physician] - 1-3 days Discharge Diet: Cardiac Discharge Activity: Resume usual activity Patient Instructions: Opioid Safety Activity Restrictions/Additional Instructions: -IV venofer 200 mg IV every 3 days for 3 remaining doses through outpatient GI lab -Recheck hemoglobin in 48 hours -Follow-up with Dr. Caal early this week -Follow with Dr. Luu as outpatient -If has recurrent anemia, hemoglobin less than 7 or bloody or black stools please go to emergency room Discharge Attestations Time Spent in Discharge Care*: less than 30 min Quality Metrics Clinical Quality Measures During this hospital stay, did patient experience: None Coding Level of Care Code Acute Chg FW DC note Diagnoses Microcytic anemia D50.9 Infiltrate noted on imaging study R93.89
--- NOTE | 2021-06-18 17:18 | NUR.SHIFT ---
Discharge Report called to DUSTIN Stanley at [facility] and no questions voiced at this time.
--- NOTE | 2021-06-18 18:53 | PC.NURSE ---
Called [facility] to check if they would take the patient this spoke with RESIDENCY PROGRAM COORDINATOR and was informed that she would have to contact her DON and call us back.
--- NOTE | 2021-06-18 22:08 | PC.NURSE ---
Patient left with Transport via stretcher at approximately 2100. Patient is not in acute distress, denies sob, or pain at this time. Patient ambulated via walker to stretcher. vital sign stable. IV removed from left AC prior to discharge. No bleeding observed. Site wrapped with gauze and koban.
== END 2021-06-18 22:15 | disposition skilled nursing facility (03) | DRG 812 ==
LOC: ER 06-17 09:54 → MEDSURG 06-17 11:30
PROVIDERS: Internal Medicine; Admitting Provider Internal Medicine; Emergency Provider Emergency Medicine; Visit Provider Family Medicine
DX: D50.9 Iron deficiency anemia, unspecified (principal); M79.89 Other specified soft tissue disorders; K44.9 Diaphragmatic hernia without obstruction or gangrene; R93.89 Abnormal findings on diagnostic imaging of other specified body structures
CPT/HCPCS: 36415; 36430; 71045; 74176; 80048; 80053; 82607; 82728; 82746; 83036; 83540; 83550; 84145; 85025; 85610; 85730; 86850; 86900; 86920; 93005; 93971; 96374; 96375; 99285; G0378; J0610; J1200; J1756; J1940; P9016

== ENCOUNTER → 2021-06-21 07:13 | Day surgery (SDC) | payer MEDICAID, SELFPAY ==
[2021-06-21 07:20] VITALS: BP 162/74; PULSE 105; RESP 18; TEMP 36.6; O2SAT 96; BMI 27.4
[2021-06-21] MEDS: iron sucrose 200 MG in sodium chloride 0.9% (100 ml) 100 ML 220 MG IV (07:40)
[2021-06-24 10:02] VITALS: BP 153/75; PULSE 93; RESP 17; TEMP 36.2; O2SAT 97
[2021-06-24] MEDS: iron sucrose 200 MG in sodium chloride 0.9% (100 ml) 100 ML 220 MG IV (10:20)
[2021-06-24 11:11] VITALS: BP 136/74; PULSE 82; RESP 18; TEMP 36.2; O2SAT 95
== END ==
PROVIDERS: PCP Internal Medicine; Visit Provider Internal Medicine
DX: D50.9 Iron deficiency anemia, unspecified (principal)
CPT/HCPCS: 96365; J1756

== ENCOUNTER 2021-06-27 07:12 | Outpatient (RCR) | payer MEDICAID, SELFPAY ==
[2021-06-27 07:18] VITALS: BP 179/91; PULSE 110; RESP 18; TEMP 36.2; O2SAT 96
[2021-06-27 07:25] VITALS: BMI 27.8
[2021-06-27] MEDS: iron sucrose 200 MG in sodium chloride 0.9% (100 ml) 100 ML 220 MG IV (07:54)
== END 2021-07-03 23:59 | disposition home or self-care (01) ==
LOC: GILAB 07:12
PROVIDERS: PCP Internal Medicine; Visit Provider Internal Medicine
DX: D50.9 Iron deficiency anemia, unspecified (principal)
CPT/HCPCS: 96365; J1756

== ENCOUNTER 2023-02-10 16:39 | Outpatient (CLI) | payer MEDICAID, SELFPAY ==
[2023-02-10 17:01] LABS: Basophils % 0.3 %; Eosinophils % 0.4 %; Hematocrit 42.4 % (37.0-47.0); Hemoglobin 13.7 g/dL (11.5-15.3); Lymphocytes # 2.1 10^3/uL (0.8-4.8); Lymphocytes % 20.6 %; Mean Corpuscular HGB Conc 32.3 g/dL (30.0-36.0); Mean Corpuscular Hemoglobin 28.9 pg (28.0-34.0); Mean Corpuscular Volume 89.5 fl (81-99); Mean Platelet Volume 10.8 fL (7.4-10.4); Monocytes # 0.8 10^3/uL (0.2-0.9); Neutrophils # 7.01 10^3/uL (1.8-7.7); Neutrophils % 70.4 %; Nucleated Red Blood Cells % 0 %; Platelet Count 260 10^3/cmm (130-400); Red Blood Count 4.74 10^6/uL (4.1-5.3); Red Cell Distribution Width 13.6 % (12.1-15.1)
[2023-02-10 17:43] LABS: Alanine Aminotransferase 10 U/L (0-33); Albumin Level 4.3 g/dL (3.5-5.2); Alkaline Phosphatase 65 U/L (35-105); Anion Gap 17.2 (5-19); Aspartate Amino Transferase 13 U/L (0-32); Blood Urea Nitrogen 21 mg/dL (8-23); Carbon Dioxide 22 mmol/L (22-29); Chloride 105 mmol/L (98-107); Globulin 2.4 g/dL (1.3-4.6); Glucose 109 mg/dL (65-115); Osmolality Calculated 294 mOsm/kg (285-295); Potassium 4.2 mmol/L (3.5-5.1); Sodium 140 mmol/L (136-145); Thyroid Stimulating Hormone 3.29 uIU/mL (0.27-4.20); Total Bilirubin 0.4 mg/dL (0.15-1.2); Total Protein 6.7 g/dL (6.6-8.7)
== END 2023-02-10 16:40 | disposition home or self-care (01) ==
PROVIDERS: PCP Internal Medicine; Visit Provider Internal Medicine
DX: F20.9 Schizophrenia, unspecified (principal)
CPT/HCPCS: 80053; 84443; 85025

== ENCOUNTER 2023-03-13 11:22 | Emergency (ER) | payer MEDICAID, SELFPAY ==
[2023-03-13 11:35] VITALS: BP 119/65; PULSE 82; RESP 18; TEMP 36.7; O2SAT 97
--- NOTE | 2023-03-13 11:40 | ED_ITS ---
Documented by User: Redd Lozada MD 03/18/23 18:06 HPI - Altered Mental Status General: Chief Complaint: Psychiatric Symptoms Stated Complaint: ams Time Seen by Provider: 03/13/23 11:39 History of Present Illness: Ms. Mohr is a 72-year-old lady with who presents for senior living for mental health evaluation. Per senior living she has a history of schizophrenia. They were concerned about possible changes behavior including self-harm and her genital area. Patient herself denies any concerns, denies suicidal or homicidal ideation and is unsure why she was sent here. Per supplemental information provided by Dr. Stevens who cares for the patient at the senior living. 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 She has essentially stopped eating and no longer cares for herself. She has been trialed on different medications and no improvement is noted. He feels that due to the failure of self-care and refusal to eat despite intervention previously tried patient requires transfer for geriatric psych. Review of Systems General: Reports: 10 or more systems reviewed and unremarkable except in HPI and below Physical Exam Const: COMMON NORMALS: alert GENERAL APPEARANCE: cooperative and well developed HENMT: COMMON NORMALS: normocephalic and atraumatic HEAD & SCALP: normoc ephalic and atraumatic Eye: COMMON NORMALS: conjunctivae normal CONJUNCTIVA: Yes conjunctivae normal SCLERA: sclerae normal Neck/C-Spine: COMMON NORMALS: supple GENERAL: Yes trachea midline Resp: COMMON NORMALS: normal respiratory effort EFFORT & INSPECTION: Yes able to speak in complete sentences Cardio: COMMON NORMALS: regular rate and regular rhythm RATE: regular rate RHYTHM: regular rhythm GI: COMMON NORMALS: Soft to palpation PALPATION: Yes Soft to palpation and No Tenderness to palpation present (GI) PERCUSSION: normal to percussion OTHER: no evidence of reported perianal trauma. non bleeding/nonirritated external hemorrhoids : COMMON NORMALS: Yes normal external appearance Extremity: GENERAL: Yes normal exam except as noted and No edema Neuro: COMMON NORMALS: moves all extremities SENSORIUM/ORIENTATION: Yes alert and Yes Orientation impaired Psych: MEMORY/COGNITION: Yes memory grossly impaired INSIGHT: Poor insight present (Psych) JUDGEMENT: Good judgement present (Psych) Course Vital Signs: Vital signs: Vital Signs Temperature 98.1 F 03/13/23 11:35 Pulse Rate 78 03/13/23 22:53 Respiratory Rate 17 03/13/23 22:53 Blood Pressure 135/66 03/13/23 22:53 Pulse Oximetry 97 03/13/23 22:53 Oxygen Delivery Me thod Room Air 03/13/23 22:53 MDM - Altered Mental Status Medical Decision Making 72-year-old lady with longstanding history of schizophrenia previously well-controlled now with somewhat unexplained decompensation that is failed outpatient management at the senior living. Patient is calm and cooperative. She offers limited insight. EKG demonstrates sinus rhythm with nonspecific ST segment abnormalities, normal axis and intervals, no STEMI. Labs demonstrate no significant hematologic or metabolic abnormality. TSH is normal. Urine drug screen and toxic ingestions are negative. Urinalysis is nonconcerning for urinary tract infection in the absence of symptoms. COVID negative. Chest x-ray with no lobar consolidation or pneumothorax. Based on ED evaluation at this point there is no obvious condition that would preclude the patient from inpatient management of psychiatric concerns/symptoms. We do not admit geriatric psych patients at our facility and therefore we will look for transfer. Medical Records I reviewed the patient's medical records. Lab Data I reviewed the patient's lab results. 03/13/23 12:08 03/13/23 12:08 Radiology Impressions Chest X-Ray 03/13/23 11:41 IMPRESSION: No acute findings. Laboratory Results WBC 5.6 10^3/uL (4.0-10.0) 03/13/23 12:08 RBC 4.35 10^6/uL (4.1-5.3) 03/13/23 12:08 Hgb 12.4 g/dL (11.5-15.3) 03/13/23 12:08 Hct 39.0 % (37.0-47.0) 03/13/23 12:08 MCV 89.7 fl (81-99) 03/13/23 12:08 MCH 28.5 pg (28.0-34.0) 03/13/23 12:08 MCHC 31.8 g/dL (30.0-36.0) 03/13/23 12:08 RDW 13.4 % (12.1-15.1) 03/13/23 12:08 Plt Count 186 10^3/cmm (130-400) 03/13/23 12:08 MPV 10.2 fL (7.4-10.4) 03/13/23 12:08 Neut % (Auto) 71.5 % 03/13/23 12:08 Lymph % (Auto) 17.3 % 03/13/23 12:08 [place] % (Auto) 9.8 % 03/13/23 12:08 Eos % (Auto) 0.7 % 03/13/23 12:08 Baso % (Auto) 0.5 % 03/13/23 12:08 Neut # (Auto) 4.01 10^3/uL (1.8-7.7) 03/13/23 12:08 Lymph # (Auto) 1.0 10^3/uL (0.8-4.8) 03/13/23 12:08 [place] # (Auto) 0.6 10^3/uL (0.2-0.9) 03/13/23 12:08 Eos # (Auto) 0.0 10^3/uL (0.0-0.8) 03/13/23 12:08 Baso # (Auto) 0.0 10^3/uL (0.0-0.1) 03/13/23 12:08 Nucleated RBC % (auto) 0 % 03/13/23 12:08 Nucleated RBCs # 0.0 /100WBC 03/13/23 12:08 Sodium 136 mmol/L (136-145) 03/13/23 12:08 Potassium 3.5 mmol/L (3.5-5.1) 03/13/23 12:08 Chloride 100 mmol/L (98-107) 03/13/23 12:08 Carbon Dioxide 27 mmol/L (22-29) 03/13/23 12:08 Anion Gap 12.5 (5-19) 03/13/23 12:08 BUN 11 mg/dL (8-23) 03/13/23 12:08 Creatinine 0.5 mg/dL (0.5-0.9) 03/13/23 12:08 GFR Calculation Not Reportable 03/13/23 12:08 Glucose 122 mg/dL (65-115) H 03/13/23 12:08 Calculated Osmolality 283 mOsm/kg (285-295) L 03/13/23 12:08 Calcium 8.5 mg/dL (8.5-10.5) 03/13/23 12:08 Total Bilirubin 0.4 mg/dL (0.15-1.2) 03/13/23 12:08 AST 19 U/L (0-32) 03/13/23 12:08 ALT 15 U/L (0-33) 03/13/23 12:08 Alkaline Phosphatase 71 U/L (35-105) 03/13/23 12:08 Total Protein 6.0 g/dL (6.6-8.7) L 03/13/23 12:08 Albumin 3.5 g/dL (3.5-5.2) 03/13/23 12:08 Globulin 2.5 g/dL (1.3-4.6) 03/13/23 12:08 TSH 2.14 uIU/mL (0.27-4.20) 03/13/23 12:08 Urine Color Yellow (Yellow) 03/13/23 15:43 Urine Appearance Clear (CLEAR) 03/13/23 15:43 Urine pH 6 (5-7) 03/13/23 15:43 Ur Specific [place] 1.010 (1.005-1.030) 03/13/23 15:43 Urine Protein Neg (Negative) 03/13/23 15:43 Urine Glucose (UA) Norm (Normal) 03/13/23 15:43 Urine Ketones Negative (Negative) 03/13/23 15:43 Urine Blood Neg (Negative) 03/13/23 15:43 Urine Nitrate Negative (Negative) 03/13/23 15:43 Urine Bilirubin Neg (Negative) 03/13/23 15:43 Urine Urobilinogen Norm mg/dL (Negative) 03/13/23 15:43 Ur Leukocyte Esterase 1+ (Negative) H 03/13/23 15:43 Urine RBC 0-4 /hpf (0-2) H 03/13/23 15:43 Urine WBC 5-10 /hpf (0-5) H 03/13/23 15:43 Ur Squamous Epith Cells 0-4 /hpf (0-5) H 03/13/23 15:43 Amorphous Sediment Not Reportable 03/13/23 15:43 Urine Bacteria Trace /hpf (NONE) 03/13/23 15:43 Urine Mucus 4+ /hpf 03/13/23 15:43 Salicylates < 0.3 mg/dL (3-10) L 03/13/23 12:08 Urine Opiates Screen Negative ng/mL (Negative) 03/13/23 15:43 Acetaminophen < 5.0 ug/mL (10-30) L 03/13/23 12:08 Ur Barbiturates Screen Negative ng/mL (Negative) 03/13/23 15:43 Ur Phencyclidine Scrn Negative ng/mL (Negative) 03/13/23 15:43 Ur Amphetamines Screen Negative ng/mL (Negative) 03/13/23 15:43 U Benzodiazepines Scrn Negative ng/mL (Negative) 03/13/23 15:43 Urine Cocaine Screen Negative ng/mL (Negative) 03/13/23 15:43 U Marijuana (THC) Screen Negative ng/mL (Negative) 03/13/23 15:43 Ethyl Alcohol < 10 mg/dL (0-10) 03/13/23 12:08 SARS-CoV-2 Ag (Rapid) negative (Negative) 03/13/23 16:10 Discharge Plan Discharge Patient Disposition: Home Clinical Impression: Chronic schizophrenia, Acute clinical decompensation Condition: Stable Prescriptions: No Action acetaminophen 325 mg Tablet 650 mg PO Q4H PRN (Reason: Pain) magnesium hydroxide [Milk of Magnesia] 400 mg/5 mL Suspension 30 ml PO DAILY PRN (Reason: Constipation) bisacodyl 10 mg Suppository 10 mg [place] DAILY PRN (Reason: Constipation) Fleet Enema 19-7 gram/118 mL Enema 118 ml WI DAILY PRN (Reason: Constipation) furosemide [Lasix] 20 mg Tablet 20 mg PO DAILY calcium carbonate-vitamin D3 600 mg (1,500 mg)-2,500 unit Capsule 1 cap PO BID pantoprazole 20 mg tablet,delayed release (DR/EC) 20 mg PO DAILY Iron (ferrous sulfate) 325 mg (65 mg iron) Tablet 325 mg PO DAILY Pepto-Bismol 262 mg/15 mL Suspension 524 mg PO Q1H PRN (Reason: Diarrhea) Rx Instructions: do not exceed 8 doses in a 24 hour period hydroxyzine HCl 25 mg tablet 25 mg PO TID PRN (Reason: Anxiety) nystatin 100,000 unit/gram Powder 1 applic TOPICAL BID fluticasone propionate 50 mcg/actuation spray,suspension 1 spray INTRANASAL DAILY mirtazapine 7.5 mg Tablet 7.5 mg PO DAILY [place] Cough Drops 5.8 mg Lozenge 5.8 mg MUCOUS MEMBRANE Q4H PRN (Reason: Cough) Invega Sustenna 117 mg/0.75 mL syringe 117 mg IM Q30D Mucinex 600 mg Tablet Extended Release 12hr 600 mg PO BID Discharge Orders: Discharge ED (Routine); Ordered 03/13/23 Ordered By: Sofya Schultz Referrals: Meliton Stevens DO [Primary Care Provider] - Discharge Diet: Advance as tolerated Discharge Activity: Resume usual activity Patient Instructions: Psychotic Disorder (ED) Coding Level of Care Code ED Sugar Cane Planter Machine Operator for Chg Fwd Documented by User: Sofya Schultz MD 03/13/23 21:14 HPI - Altered Mental Status General: Chief Complaint: Psychiatric Symptoms Stated Complaint: ams Time Seen by Provider: 03/13/23 11:39 Course Vital Signs: Vital signs: Vital Signs Temperature 98.1 F 03/13/23 11:35 Pulse Rate 78 03/13/23 22:53 Respiratory Rate 17 03/13/23 22:53 Blood Pressure 135/66 03/13/23 22:53 Pulse Oximetry 97 03/13/23 22:53 Oxygen Delivery Me thod Room Air 03/13/23 22:53 MDM - Altered Mental Status Medical Decision Making They [id number] lady with longstanding history of schizophrenia previously well-controlled now with somewhat unexplained decompensation that is failed outpatient management at the senior living. Patient is calm and cooperative. She offers limited insight. EKG demonstrates sinus rhythm with nonspecific ST segment abnormalities, normal axis and intervals, no STEMI. Labs demonstrate no significant hematologic or metabolic abnormality. TSH is normal. Urine drug screen and toxic ingestions are negative. Urinalysis is nonconcerning for urinary tract infection in the absence of symptoms. COVID negative. Chest x-ray with no lobar consolidation or pneumothorax. Based on ED evaluation at this point there is no obvious condition that would preclude the patient from inpatient management of psychiatric concerns/symptoms. We do not admit geriatric psych patients at our facility and therefore we will look for transfer. -Kidney patient presents here with schizophrenia along with psychosis she is excepted at [facility] but likely they are wanting affidavits from the senior living and are holding a bed tomorrow for her we spoke to [facility] senior living and we will discharge patient back to senior living they are to send the affidavits and make patient a direct admit to [facility] received after the y recieve affidavits she has been medically cleared at this time Lab Data 03/13/23 12:08 03/13/23 12:08 Radiology Impressions Chest X-Ray 03/13/23 11:41 IMPRESSION: No acute findings. Laboratory Results WBC 5.6 10^3/uL (4.0-10.0) 03/13/23 12:08 RBC 4.35 10^6/uL (4.1-5.3) 03/13/23 12:08 Hgb 12.4 g/dL (11.5-15.3) 03/13/23 12:08 Hct 39.0 % (37.0-47.0) 03/13/23 12:08 MCV 89.7 fl (81-99) 03/13/23 12:08 MCH 28.5 pg (28.0-34.0) 03/13/23 12:08 MCHC 31.8 g/dL (30.0-36.0) 03/13/23 12:08 RDW 13.4 % (12.1-15.1) 03/13/23 12:08 Plt Count 186 10^3/cmm (130-400) 03/13/23 12:08 MPV 10.2 fL (7.4-10.4) 03/13/23 12:08 Neut % (Auto) 71.5 % 03/13/23 12:08 Lymph % (Auto) 17.3 % 03/13/23 12:08 [place] % (Auto) 9.8 % 03/13/23 12:08 Eos % (Auto) 0.7 % 03/13/23 12:08 Baso % (Auto) 0.5 % 03/13/23 12:08 Neut # (Auto) 4.01 10^3/uL (1.8-7.7) 03/13/23 12:08 Lymph # (Auto) 1.0 10^3/uL (0.8-4.8) 03/13/23 12:08 [place] # (Auto) 0.6 10^3/uL (0.2-0.9) 03/13/23 12:08 Eos # (Auto) 0.0 10^3/uL (0.0-0.8) 03/13/23 12:08 Baso # (Auto) 0.0 10^3/uL (0.0-0.1) 03/13/23 12:08 Nucleated RBC % (auto) 0 % 03/13/23 12:08 Nucleated RBCs # 0.0 /100WBC 03/13/23 12:08 Sodium 136 mmol/L (136-145) 03/13/23 12:08 Potassium 3.5 mmol/L (3.5-5.1) 03/13/23 12:08 Chloride 100 mmol/L (98-107) 03/13/23 12:08 Carbon Dioxide 27 mmol/L (22-29) 03/13/23 12:08 Anion Gap 12.5 (5-19) 03/13/23 12:08 BUN 11 mg/dL (8-23) 03/13/23 12:08 Creatinine 0.5 mg/dL (0.5-0.9) 03/13/23 12:08 GFR Calculation Not Reportable 03/13/23 12:08 Glucose 122 mg/dL (65-115) H 03/13/23 12:08 Calculated Osmolality 283 mOsm/kg (285-295) L 03/13/23 12:08 Calcium 8.5 mg/dL (8.5-10.5) 03/13/23 12:08 Total Bilirubin 0.4 mg/dL (0.15-1.2) 03/13/23 12:08 AST 19 U/L (0-32) 03/13/23 12:08 ALT 15 U/L (0-33) 03/13/23 12:08 Alkaline Phosphatase 71 U/L (35-105) 03/13/23 12:08 Total Protein 6.0 g/dL (6.6-8.7) L 03/13/23 12:08 Albumin 3.5 g/dL (3.5-5.2) 03/13/23 12:08 Globulin 2.5 g/dL (1.3-4.6) 03/13/23 12:08 TSH 2.14 uIU/mL (0.27-4.20) 03/13/23 12:08 Urine Color Yellow (Yellow) 03/13/23 15:43 Urine Appearance Clear (CLEAR) 03/13/23 15:43 Urine pH 6 (5-7) 03/13/23 15:43 Ur Specific [place] 1.010 (1.005-1.030) 03/13/23 15:43 Urine Protein Neg (Negative) 03/13/23 15:43 Urine Glucose (UA) Norm (Normal) 03/13/23 15:43 Urine Ketones Negative (Negative) 03/13/23 15:43 Urine Blood Neg (Negative) 03/13/23 15:43 Urine Nitrate Negative (Negative) 03/13/23 15:43 Urine Bilirubin Neg (Negative) 03/13/23 15:43 Urine Urobilinogen Norm mg/dL (Negative) 03/13/23 15:43 Ur Leukocyte Esterase 1+ (Negative) H 03/13/23 15:43 Urine RBC 0-4 /hpf (0-2) H 03/13/23 15:43 Urine WBC 5-10 /hpf (0-5) H 03/13/23 15:43 Ur Squamous Epith Cells 0-4 /hpf (0-5) H 03/13/23 15:43 Amorphous Sediment Not Reportable 03/13/23 15:43 Urine Bacteria Trace /hpf (NONE) 03/13/23 15:43 Urine Mucus 4+ /hpf 03/13/23 15:43 Salicylates < 0.3 mg/dL (3-10) L 03/13/23 12:08 Urine Opiates Screen Negative ng/mL (Negative) 03/13/23 15:43 Acetaminophen < 5.0 ug/mL (10-30) L 03/13/23 12:08 Ur Barbiturates Screen Negative ng/mL (Negative) 03/13/23 15:43 Ur Phencyclidine Scrn Negative ng/mL (Negative) 03/13/23 15:43 Ur Amphetamines Screen Negative ng/mL (Negative) 03/13/23 15:43 U Benzodiazepines Scrn Negative ng/mL (Negative) 03/13/23 15:43 Urine Cocaine Screen Negative ng/mL (Negative) 03/13/23 15:43 U Marijuana (THC) Screen Negative ng/mL (Negative) 03/13/23 15:43 Ethyl Alcohol < 10 mg/dL (0-10) 03/13/23 12:08 SARS-CoV-2 Ag (Rapid) negative (Negative) 03/13/23 16:10 Discharge Plan Discharge Patient Disposition: Home Clinical Impression: Chronic schizophrenia, Acute clinical decompensation Condition: Stable Prescriptions: No Action acetaminophen 325 mg Tablet 650 mg PO Q4H PRN (Reason: Pain) magnesium hydroxide [Milk of Magnesia] 400 mg/5 mL Suspension 30 ml PO DAILY PRN (Reason: Constipation) bisacodyl 10 mg Suppository 10 mg WI DAILY PRN (Reason: Constipation) Fleet Enema 19-7 gram/118 mL Enema 118 ml WI DAILY PRN (Reason: Constipation) furosemide [Lasix] 20 mg Tablet 20 mg PO DAILY calcium carbonate-vitamin D3 600 mg (1,500 mg)-2,500 unit Capsule 1 cap PO BID pantoprazole 20 mg tablet,delayed release (DR/EC) 20 mg PO DAILY Iron (ferrous sulfate) 325 mg (65 mg iron) Tablet 325 mg PO DAILY Pepto-Bismol 262 mg/15 mL Suspension 524 mg PO Q1H PRN (Reason: Diarrhea) Rx Instructions: do not exceed 8 doses in a 24 hour period hydroxyzine HCl 25 mg tablet 25 mg PO TID PRN (Reason: Anxiety) nystatin 100,000 unit/gram Powder 1 applic TOPICAL BID fluticasone propionate 50 mcg/actuation spray,suspension 1 spray INTRANASAL DAILY mirtazapine 7.5 mg Tablet 7.5 mg PO DAILY [place] Cough Drops 5.8 mg Lozenge 5.8 mg MUCOUS MEMBRANE Q4H PRN (Reason: Cough) Invega Sustenna 117 mg/0.75 mL syringe 117 mg IM Q30D Mucinex 600 mg Tablet Extended Release 12hr 600 mg PO BID Discharge Orders: Discharge ED (Routine); Ordered 03/13/23 Ordered By: Sofya Schultz Referrals: Meliton Stevens DO [Primary Care Provider] - Discharge Diet: Advance as tolerated Discharge Activity: Resume usual activity Patient Instructions: Psychotic Disorder (ED) Coding Level of Care Code ED Sugar Cane Planter Machine Operator for Rosina Deanna
--- NOTE | 2023-03-13 11:41 | ECG_ITS ---
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 Measurements Intervals [place] Rate: 78 P: 24 ND: 151 QRS: -2 QRSD: 74 T: -3 QT: 368 QTc: 422 Interpretive Statements SINUS RHYTHM Compared to ECG 06/16/2021 22:01:17 Sinus tachycardia no longer present ST (T wave) deviation no longer present Electronically Signed On 03-14-2023 9:26:43 CDT by Aditya Dawson M.D. [id number]
--- NOTE | 2023-03-13 11:41 | XRR_ITS ---
PROCEDURE INFORMATION: Exam: XR Chest Exam date and time: 03/13/2023 11:45 AM Age: 72 years old Clinical indication: Other: Altered mental status; Additional info: AMS TECHNIQUE: Imaging protocol: Radiologic exam of the chest. Views: 1 view. COMPARISON: CR XR chest 1V portable [id number] 06/16/2021 9:46 PM FINDINGS: Lungs: Unremarkable. No consolidation. Pleural spaces: Unremarkable. No pleural effusion. No pneumothorax. Heart/Mediastinum: Unremarkable. No cardiomegaly. Bones/joints: Leftward curvature of the upper thoracic spine. Degenerative changes. No acute fracture identified. XR/XR chest 1V portable [id number] IMPRESSION: No acute findings.
--- NOTE | 2023-03-13 11:47 | PC.PHAR ---
CALLED [facility] FOR MED LIST AT 11:50 AM
[2023-03-13 12:19] LABS: Basophils % 0.5 %; Eosinophils % 0.7 %; Hemoglobin 12.4 g/dL (11.5-15.3); Lymphocytes % 17.3 %; Mean Corpuscular HGB Conc 31.8 g/dL (30.0-36.0); Mean Corpuscular Hemoglobin 28.5 pg (28.0-34.0); Mean Corpuscular Volume 89.7 fl (81-99); Mean Platelet Volume 10.2 fL (7.4-10.4); Monocytes # 0.6 10^3/uL (0.2-0.9); Monocytes % 9.8 %; Neutrophils # 4.01 10^3/uL (1.8-7.7); Neutrophils % 71.5 %; Nucleated Red Blood Cells % 0 %; Platelet Count 186 10^3/cmm (130-400); Red Blood Count 4.35 10^6/uL (4.1-5.3); Red Cell Distribution Width 13.4 % (12.1-15.1); White Blood Count 5.6 10^3/uL (4.0-10.0)
[2023-03-13 13:16] LABS: Alanine Aminotransferase 15 U/L (0-33); Albumin Level 3.5 g/dL (3.5-5.2); Alkaline Phosphatase 71 U/L (35-105); Anion Gap 12.5 (5-19); Aspartate Amino Transferase 19 U/L (0-32); Blood Urea Nitrogen 11 mg/dL (8-23); Calcium 8.5 mg/dL (8.5-10.5); Carbon Dioxide 27 mmol/L (22-29); Chloride 100 mmol/L (98-107); Globulin 2.5 g/dL (1.3-4.6); Glucose 122 mg/dL (65-115); Osmolality Calculated 283 mOsm/kg (285-295); Potassium 3.5 mmol/L (3.5-5.1); Sodium 136 mmol/L (136-145); Thyroid Stimulating Hormone 2.14 uIU/mL (0.27-4.20); Total Bilirubin 0.4 mg/dL (0.15-1.2)
[2023-03-13 13:17] LABS: Acetaminophen < 5.0 ug/mL (10-30); Alcohol Level < 10 mg/dL (0-10); Salicylate < 0.3 mg/dL (3-10)
--- NOTE | 2023-03-13 14:00 | PC.NURSE ---
to room to try to get urine from pt. pt states she needs water and then should be able to give sample. pt alert and oriented. Calm and cooperative. no signs of intentions of self harm.
[2023-03-13 15:55] LABS: Add Urine Microscopic? YES; Bilirubin Urine Neg (Negative); Blood Urine Neg (Negative); Glucose Urine UA Norm (Normal); Ketones Urine Negative (Negative); Leukocyte Esterase Urine 1+ (Negative); Nitrate Urine Negative (Negative); Protein Urine Neg (Negative); Urine Appearance Clear (CLEAR); Urine Color Yellow (Yellow); Urobilinogen Urine Norm (Negative); pH Urine 6 (5-7)
[2023-03-13 15:56] LABS: Add Urine Culture? No; Bacteria Urine TRACE /hpf; Mucus Urine 4+ /hpf; RBC Urine 0-4 /hpf (0-2); Squamous Epithelial Cell Urine 0-4 /hpf (0-5)
[2023-03-13 16:00] LABS: Amphetamines Screen Urine Negative (Negative); Barbiturates Screen Urine Negative (Negative); Benzodiazepines Screen Urine Negative (Negative); Cocaine Screen Urine Negative (Negative); Opiate Screen Urine Negative (Negative); PCP Screen Urine Negative (Negative); THC Screen Urine Negative (Negative)
[2023-03-13 16:35] LABS: SARS Covid-2 Antigen negative (Negative)
[2023-03-13 18:12] VITALS: BP 124/72; PULSE 74; RESP 18; O2SAT 98
--- NOTE | 2023-03-13 19:30 | PC.NURSE ---
ASSUMED CARE OF PATIENT AT 1900.
--- NOTE | 2023-03-13 21:15 | PC.NURSE ---
[facility] AT [facility] CONTACTED AND STATED THAT PT IS ABLE TO GO BACK TO THE [facility] AND BE TRANSFERRED IN THE MORNING DUE TO [facility] NEEDING AFFIDAVITS FROM THE NURSES AT THE [facility] FOR ADMISSION. [facility] WILL BE IN 03/14 TO FILL OUT AFFIDAVITS TO BE FAXED OVER FOR ADMISSION. [facility] NOTIFIED. [facility] NOTIFIED. DR GOODRICH NOTIFIED.
[2023-03-13 22:53] VITALS: BP 135/66; PULSE 78; RESP 17; O2SAT 97
== END 2023-03-13 23:23 | disposition home or self-care (01) ==
PROVIDERS: Emergency Medicine; Emergency Provider Emergency Medicine; PCP Internal Medicine
DX: F20.9 Schizophrenia, unspecified (principal); Z20.822 Contact with and (suspected) exposure to COVID-19
CPT/HCPCS: 36415; 71045; 80053; 80306; 80307; 81001; 84443; 85025; 87426; 93005; 99285

== ENCOUNTER 2023-03-14 16:58 | Emergency (ER) | payer MEDICAID, SELFPAY ==
[2023-03-14 16:59] VITALS: BP 114/67; PULSE 91; RESP 18; TEMP 36.8; O2SAT 98; BMI 24.7
--- NOTE | 2023-03-14 17:03 | ED.C_ITS ---
HPI - Psych General: Chief Complaint: Psychiatric Symptoms Stated Complaint: SI Time Seen by Provider: 03/14/23 17:00 Source: patient and EMS Mode of arrival: EMS History of Present Illness: 72-year-old females had a history of acute psychosis she was here in the hospital last night is excepted to [facility] she had been transferred back to the long term because they needed to failed affidavits and filled out affidavits nursing homes excepted patient was transferred here by EMS and will transfer to [facility] she has no new complaints at this time Review of Systems Eyes: Denies: change in vision Card: Denies: chest pain GI: Denies: abdominal pain Musc: Denies: neck pain Neuro: Denies: headache(s) Psych: Reports: anxiety Physical Exam Const: COMMON NORMALS: no acute distress HENMT: COMMON NORMALS: normocephalic HEAD & SCALP: normocephalic Eye: COMMON NORMALS: conjunctivae normal CONJUNCTIVA: Yes conjunctivae normal Neck/C-Spine: COMMON NORMALS: supple Chest: COMMONS NORMALS: normal inspection of the chest Resp: COMMON NORMALS: normal respiratory effort Cardio: COMMON NORMALS: regular rate RATE: regular rate Extremity: COMMON NORMALS: normal to inspection Course Vital Signs: Vital signs: Vital Signs Temperature 98.2 F 03/14/23 16:59 Pulse Rate 91 03/14/23 16:59 Respiratory Rate 18 03/14/23 16:59 Blood Pressure 114/67 03/14/23 16:59 Pulse Oximetry 98 03/14/23 16:59 Oxygen Delivery Me thod Room Air 03/14/23 16:59 MDM - Psych Medical Decision Making Patient presents here with acute psychosis she is excepted to [facility] will transfer there. She is medically cleared from labs yesterday Discharge Plan Discharge Condition: Stable Prescriptions: No Action acetaminophen 325 mg Tablet 650 mg PO Q4H PRN (Reason: Pain) magnesium hydroxide [Milk of Magnesia] 400 mg/5 mL Suspension 30 ml PO DAILY PRN (Reason: Constipation) bisacodyl 10 mg Suppository 10 mg [place] DAILY PRN (Reason: Constipation) Fleet Enema 19-7 gram/118 mL Enema 118 ml AR DAILY PRN (Reason: Constipation) furosemide [Lasix] 20 mg Tablet 20 mg PO DAILY calcium carbonate-vitamin D3 600 mg (1,500 mg)-2,500 unit Capsule 1 cap PO BID pantoprazole 20 mg tablet,delayed release (DR/EC) 20 mg PO DAILY Iron (ferrous sulfate) 325 mg (65 mg iron) Tablet 325 mg PO DAILY Pepto-Bismol 262 mg/15 mL Suspension 524 mg PO Q1H PRN (Reason: Diarrhea) Rx Instructions: do not exceed 8 doses in a 24 hour period hydroxyzine HCl 25 mg tablet 25 mg PO TID PRN (Reason: Anxiety) nystatin 100,000 unit/gram Powder 1 applic TOPICAL BID fluticasone propionate 50 mcg/actuation spray,suspension 1 spray INTRANASAL DAILY mirtazapine 7.5 mg Tablet 7.5 mg PO DAILY [place] Cough Drops 5.8 mg Lozenge 5.8 mg MUCOUS MEMBRANE Q4H PRN (Reason: Cough) Invega Sustenna 117 mg/0.75 mL syringe 117 mg IM Q30D Mucinex 600 mg Tablet Extended Release 12hr 600 mg PO BID Referrals: Meliton Stevens DO [Primary Care Provider] - Coding Level of Care Code ED Senior Python Developer for Noel Huerta
[2023-03-14] MEDS: LORazepam 1 mg Tablet PO (17:11)
== END 2023-03-14 17:57 ==
PROVIDERS: Emergency Provider Emergency Medicine; PCP Internal Medicine
DX: F23 Brief psychotic disorder (principal)
CPT/HCPCS: 99283

== ENCOUNTER 2023-07-14 13:47 | Inpatient (IN) | payer MEDICAID, SELFPAY ==
[2023-07-14] VITALS (10 sets, daily range): BP systolic 100–147; BP diastolic 58–71; PULSE 69–115; RESP 15–18; TEMP 36.4–38.9; O2SAT 92–98; BMI 24.7; BMI 21.9
--- NOTE | 2023-07-14 14:08 | ECG_ITS ---
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 Measurements Intervals [place] Rate: 109 P: -6 CO: 144 QRS: 0 QRSD: 72 T: -9 QT: 304 QTc: 409 Interpretive Statements SINUS TACHYCARDIA ABNORMAL RHYTHM ECG Compared to ECG 03/13/2023 11:53:07 Sinus rhythm no longer present Electronically Signed On 07-14-2023 15:57:15 LEARNING SUPPORT ASSISTANT by Philippe Gill M.D. [email or web address] medical specialty hospital - southeast [email or web address] [email or web address]/[id number]
--- NOTE | 2023-07-14 14:08 | XR_ITS ---
WS: [id number] Exam: XR chest 1V portable [id number] Date/Time of Exam: 07/14/2023 2:13 PM Reason For Exam: fever Comparison 03/13/2023. The lungs there appears to be atelectasis in the LEFT lower lobe. Remaining lung correa are clear. Ca rdiomediastinal silhouette is unremarkable for technique. Large hiatal hernia. No pneumothorax. Bony structures are intact. Degenerative change and dextroscoliosis of the T-spine. IMPRESSION: 1. LEFT lower lobe atelectasis. 2. Large hiatal hernia.
--- NOTE | 2023-07-14 14:10 | ED_ITS ---
HPI - Wound/Laceration 2 General: Chief Complaint: Wound/Laceration Stated Complaint: sepsis Time Seen by Provider: 07/14/23 13:52 Source: patient and EMS Mode of arrival: EMS Limitations: no limitations History of Present Illness: 72-year-old female is here from the [facility] home with increasing weakness and fever. Per EMS she is febrile and she does have tachycardia she has history of pressure wounds to back and buttocks. Per fdc patient's had some multiple status here she is answering my questions appropriately knows the year and knows her name and where she is at. She denies any cough denies any pain anywhere. Associated symptoms: Reports fever(s); Denies chills, nausea or vomiting Review of Systems 2 Const: Reports: fever(s) and fatigue; Denies: chills, body aches or change in appetite Eyes: Denies: blurry vision or eye discomfort ENMT: Denies: throat pain or dental pain Card: Denies: chest pain Resp: Denies: dyspnea GI: Denies: abdominal pain, nausea, vomiting or diarrhea : Denies: dysuria Musc: Denies: neck pain or back pain Skin/Breast: Reports: sores; Denies: rash Neuro: Reports: confusion; Denies: headache(s) Physical Exam 2 Const: COMMON NORMALS: patient oriented x3 GENERAL APPEARANCE: ill appearing HENMT: COMMON NORMALS: normocephalic and atraumatic HEAD & SCALP: n ormocephalic and atraumatic Eye: COMMON NORMALS: Equal, round and reactive pupils present and EOMs intact bilaterally PUPIL: Yes Equal, round and reactive pupils present Neck/C-Spine: COMMON NORMALS: full ROM and supple Chest: COMMONS NORMALS: normal inspection of the chest and normal palpation of entire chest wall Resp: COMMON NORMALS: normal respiratory effort, No retractions, No use of accessory muscles and clear to auscultation bilaterally AUSCULTATION: clear to auscultation bilaterally Cardio: COMMON NORMALS: regular rhythm and No murmurs present (Cardio) R ATE: tachycardic RHYTHM: regular rhythm GI: COMMON NORMALS: Normal to inspection, nondistended, normoactive bowel sounds present, Soft to palpation, non-tender and no masses PALPATION: Yes Soft to palpation Extremity: COMMON NORMALS: normal to inspection and full ROM Neuro: COMMON NORMALS: patient oriented x3, moves all extremities and no focal motor deficits Psych: COMMON NORMALS: mental status grossly normal, Normal thought process present and cooperative THOUGHT PROCESS: Normal thought process present Skin: COMMON NORMALS: no rashes or lesions noted NARRATIVE SKIN EXAM: Pressure ulcer noted to hip and back with some erythema GENERAL SKIN EXAM: no rashes or lesions noted Course 2 Vital Signs: Vital signs: Vital Signs Temperature 102.1 F H 07/14/23 15:05 Pulse Rate 113 H 07/14/23 15:00 Respiratory Rate 15 07/14/23 15:00 Blood Pressure 121/58 07/14/23 15:00 Pulse Oximetry 99 07/14/23 15:00 Oxygen Delivery Me thod Room Air 07/14/23 15:00 Oxygen Flow Rate 4 07/14/23 13:48 MDM - Wound/Laceration Medical Decision Making Patient presents here fever she does have a UTI patient also has decubitus ulcer as well. Lactate here is normal her blood pressures been normal patient started on IV antibiotics I spoke to the hospitalist will admit. Medical Records I reviewed the patient's medical records. Lab Data I reviewed the patient's lab results. 07/14/23 14:22 07/14/23 15:10 Laboratory Results WBC 13.80 10^3/uL (3.29-11.43) H 07/14/23 14:22 RBC 3.37 10^6/uL (3.85-5.65) L 07/14/23 14:22 Hgb 9.30 g/dL (11.27-16.99) L 07/14/23 14:22 Hct 29.2 % (36-47) L 07/14/23 14:22 MCV 86.6 fl (85-98) 07/14/23 14:22 MCH 27.6 pg (27-33) 07/14/23 14:22 MCHC 31.8 g/dL (30-55) 07/14/23 14:22 RDW 13.9 % (12.1-15.1) 07/14/23 14:22 Plt Count 398 10^3/cmm (157-399) 07/14/23 14:22 MPV 9.7 fL (7.4-10.4) 07/14/23 14:22 Neut % (Auto) 88.9 % 07/14/23 14:22 Lymph % (Auto) 6.4 % 07/14/23 14:22 [place] % (Auto) 3.8 % 07/14/23 14:22 Eos % (Auto) 0.0 % 07/14/23 14:22 Baso % (Auto) 0.2 % 07/14/23 14:22 Neut # (Auto) 12.26 10^3/uL (1.8-7.7) H 07/14/23 14:22 Lymph # (Auto) 0.9 10^3/uL (0.8-4.8) 07/14/23 14:22 [place] # (Auto) 0.5 10^3/uL (0.2-0.9) 07/14/23 14:22 Eos # (Auto) 0.0 10^3/uL (0.0-0.8) 07/14/23 14:22 Baso # (Auto) 0.0 10^3/uL (0.0-0.1) 07/14/23 14:22 Nucleated RBC % (auto) 0 % 07/14/23 14:22 Nucleated RBCs # 0.0 /100WBC 07/14/23 14:22 PT 16.40 SECONDS (12.1-14.9) H 07/14/23 15:10 INR 1.27 (0.8-1.2) H 07/14/23 15:10 Sodium 133 mmol/L (136-145) L 07/14/23 15:10 Potassium 3.6 mmol/L (3.5-5.1) 07/14/23 15:10 Chloride 98 mmol/L (98-107) 07/14/23 15:10 Carbon Dioxide 25 mmol/L (22-29) 07/14/23 15:10 Anion Gap 13.6 (5-19) 07/14/23 15:10 BUN 11 mg/dL (8-23) 07/14/23 15:10 Creatinine 0.4 mg/dL (0.5-0.9) L 07/14/23 15:10 GFR Calculation Not Reportable 07/14/23 15:10 Glucose 111 mg/dL (65-115) 07/14/23 15:10 Calculated Osmolality 276 mOsm/kg (285-295) L 07/14/23 15:10 Lactic Acid 1.3 mmol/L (0.5-2.2) 07/14/23 15:10 Calcium 7.8 mg/dL (8.5-10.5) L 07/14/23 15:10 Total Bilirubin 0.5 mg/dL (0.15-1.2) 07/14/23 15:10 AST 35 U/L (0-32) H 07/14/23 15:10 ALT 25 U/L (0-33) 07/14/23 15:10 Alkaline Phosphatase 90 U/L (35-105) 07/14/23 15:10 Total Protein 5.6 g/dL (6.6-8.7) L 07/14/23 15:10 Albumin 2.5 g/dL (3.5-5.2) L 07/14/23 15:10 Globulin 3.1 g/dL (1.3-4.6) 07/14/23 15:10 Urine Color Yellow (Yellow) 07/14/23 14:45 Urine Appearance Hazy (CLEAR) A 07/14/23 14:45 Urine pH 6 (5-7) 07/14/23 14:45 Ur Specific [place] 1.020 (1.005-1.030) 07/14/23 14:45 Urine Protein Trace (Negative) 07/14/23 14:45 Urine Glucose (UA) Norm (Normal) 07/14/23 14:45 Urine Ketones Negative (Negative) 07/14/23 14:45 Urine Blood 2+ (Negative) H 07/14/23 14:45 Urine Nitrate Positive (Negative) H 07/14/23 14:45 Urine Bilirubin 1+ (Negative) H 07/14/23 14:45 Urine Urobilinogen 4 mg/dL (Negative) H 07/14/23 14:45 Ur Leukocyte Esterase 1+ (Negative) H 07/14/23 14:45 Urine RBC 5-10 /hpf (0-2) H 07/14/23 14:45 Urine WBC 15-25 /hpf (0-5) H 07/14/23 14:45 Ur Squamous Epith Cells 0-4 /hpf (0-5) H 07/14/23 14:45 Amorphous Sediment Not Reportable 07/14/23 14:45 Urine Bacteria 4+ /hpf (NONE) H 07/14/23 14:45 Urine Mucus 2+ /hpf 12/11/23 14:45 Influenza Type A Ag negative (Negative) 07/14/23 15:10 Influenza Type B Ag negative (Negative) 07/14/23 15:10 SARS-CoV-2 Ag (Rapid) negative (Negative) 07/14/23 15:10 All radiology interpretation(s) finalized by discharge EKG Data EKG 1: I personally reviewed and interpreted this EKG as follows: EKG interpretation date: 07/14/23 EKG interpretation time: 14:22 Interpretation: sinus tach hr [address] or t wave abnormalities qrs 72 qtc 368 Discharge Plan Discharge Patient Disposition: Admitted As Inpatient Clinical Impression: Acute cystitis, Decubitus ulcer Condition: Stable Prescriptions: No Action acetaminophen 325 mg Tablet 650 mg PO Q4H PRN (Reason: Pain) magnesium hydroxide [Milk of Magnesia] 400 mg/5 mL Suspension 30 ml PO DAILY PRN (Reason: Constipation) bisacodyl 10 mg Suppository 10 mg MN DAILY PRN (Reason: Constipation) Fleet Enema 19-7 gram/118 mL Enema 118 ml MN DAILY PRN (Reason: Constipation) furosemide [Lasix] 20 mg Tablet 20 mg PO DAILY pantoprazole 20 mg tablet,delayed release (DR/EC) 20 mg PO DAILY ferrous sulfate [Iron (ferrous sulfate)] 325 mg (65 mg iron) Tablet See Rx Instructions .ROUTE .COMPLEX Rx Instructions: Take 325 mg orally twice weekly on Friday and Friday bismuth subsalicylate [Pepto-Bismol] 262 mg/15 mL Suspension See Rx Instructions .ROUTE .COMPLEX PRN (Reason: Diarrhea) Rx Instructions: Take 30 ml orally as needed every 1 hour ;do not exceed 8 doses in a 24 hour period nystatin 100,000 unit/gram Powder See Rx Instructions .ROUTE .COMPLEX Rx Instructions: 1 applic topically twice daily: cleanse under both breasts with NS, pat dry. Apply nystatin under both breasts. fluticasone propionate 50 mcg/actuation spray,suspension 1 spray INTRANASAL DAILY mirtazapine 7.5 mg Tablet 7.5 mg PO BEDTIME [place] Cough Drops 5.8 mg Lozenge 5.8 mg MUCOUS MEMBRANE Q4H PRN (Reason: Cough) Invega Sustenna 117 mg/0.75 mL syringe 117 mg IM Q30D Rx Instructions: on the guaifenesin [Mucinex] 600 mg Tablet Extended Release 12hr 600 mg PO BID Clear Eyes Natural Tears 0.5-0.6 % Drops 1 drp OPHTHALMIC (EYE) TID PRN (Reason: Dry Eyes) Dakin's Solution 0.125 % See Rx Instructions .ROUTE .COMPLEX Rx Instructions: Apply topically every shift mid spine: cleanse with NS and gauze, apply dakins damp gauze to wound bed and cover with dry gauze and secure with tape MediHoney (honey) 80 % Gel See Rx Instructions .ROUTE .COMPLEX Rx Instructions: 1 applic topically as directed every shift; mid spine: cleanse with NS and gauze. Apply medi-honey to wound bed only and cover with bordered foam gauze. Robitussin Cough-Sore Throat 325-10 mg/10 mL Liquid 10 ml PO Q6H PRN (Reason: cough or congestion) Santyl See Rx Instructions .ROUTE .COMPLEX Rx Instructions: 1 application topically as directed every shift; Mid spine: Cleanse with NS and gauze. Apply Santyl to wound bed only and cover with bordered foam gauze. Referrals: Meliton Stevens DO [Primary Care Provider] - Coding Level of Care Code ED Vehicle Refinisher for Noel Huerta
[2023-07-14 14:48] LABS: Basophils % 0.2 %; Hematocrit 29.2 % (36-47); Lymphocytes # 0.9 10^3/uL (0.8-4.8); Lymphocytes % 6.4 %; Mean Corpuscular HGB Conc 31.8 g/dL (30-55); Mean Corpuscular Hemoglobin 27.6 pg (27-33); Mean Corpuscular Volume 86.6 fl (85-98); Mean Platelet Volume 9.7 fL (7.4-10.4); Monocytes # 0.5 10^3/uL (0.2-0.9); Monocytes % 3.8 %; Neutrophils # 12.26 10^3/uL (1.8-7.7); Neutrophils % 88.9 %; Nucleated Red Blood Cells % 0 %; Platelet Count 398 10^3/cmm (157-399); Red Blood Count 3.37 10^6/uL (3.85-5.65); Red Cell Distribution Width 13.9 % (12.1-15.1)
[2023-07-14] MEDS: sodium chloride 0.9% 1,000 ML 999 ML IV ×2 (15:15→16:37)
[2023-07-14] MEDS: vancomycin 1,000 MG in sodium chloride 0.9% 250 ML 250 MG IV (15:23)
[2023-07-14 15:31] LABS: Add Urine Microscopic? YES; Bilirubin Urine 1+ (Negative); Blood Urine 2+ (Negative); Glucose Urine UA Norm (Normal); Ketones Urine Negative (Negative); Leukocyte Esterase Urine 1+ (Negative); Nitrate Urine Positive (Negative); Protein Urine Trace (Negative); Urine Appearance Hazy (CLEAR); Urine Color Yellow (Yellow); Urobilinogen Urine 4 mg/dL (Negative); pH Urine 6 (5-7)
[2023-07-14 15:34] LABS: Add Urine Culture? Yes; Bacteria Urine 4+ /hpf; Mucus Urine 2+ /hpf; Squamous Epithelial Cell Urine 0-4 /hpf (0-5); WBC Urine 15-25 /hpf (0-5)
[2023-07-14] MEDS: acetaminophen 1,000 MG/100 ML PIGGYBACK 400 MG IV (15:51)
[2023-07-14 15:54] LABS: INR 1.27 (0.8-1.2)
[2023-07-14 16:00] LABS: Alanine Aminotransferase 25 U/L (0-33); Albumin Level 2.5 g/dL (3.5-5.2); Alkaline Phosphatase 90 U/L (35-105); Anion Gap 13.6 (5-19); Aspartate Amino Transferase 35 U/L (0-32); Blood Urea Nitrogen 11 mg/dL (8-23); Calcium 7.8 mg/dL (8.5-10.5); Carbon Dioxide 25 mmol/L (22-29); Chloride 98 mmol/L (98-107); Globulin 3.1 g/dL (1.3-4.6); Glucose 111 mg/dL (65-115); Osmolality Calculated 276 mOsm/kg (285-295); Potassium 3.6 mmol/L (3.5-5.1); Sodium 133 mmol/L (136-145); Total Bilirubin 0.5 mg/dL (0.15-1.2); Total Protein 5.6 g/dL (6.6-8.7)
[2023-07-14 16:01] LABS: Lactic Sepsis W/Reflex 1.3 mmol/L (0.5-2.2)
[2023-07-14 16:02] LABS: Influenza A by IFA negative (Negative); Influenza B by IFA negative (Negative)
[2023-07-14 16:04] LABS: SARS Covid-2 Antigen negative (Negative)
[2023-07-14] MEDS: piperacillin-tazobactam 3.375 GM in sodium chloride 0.9% (plus) 50 ML IV (16:42)
--- NOTE | 2023-07-14 18:33 | P.HP_ITS ---
Providers/Chief Complaint 2 Admitting Physician: Bisi Elizalde MD Primary Care Provider: Meliton Stevens DO Chief Complaint: sepsis History of Present Illness Josiah Mohr is a 72 year old female custodial resident with past medical history of chronic decubitus wounds following up with wound care at the custodial, iron deficiency anemia with history of blood and iron transfusion was sent into the ER from the custodial today because of increasing weakness and an episode of fever. In the ER patient was diagnosed of having UTI and medicine team was consulted. On examination patient is awake and alert sitting comfortably in bed, Daley placed in the ER. Review of Systems 2 General: Reports: 10 or more systems reviewed and unremarkable except in HPI and below Const: Denies: fever(s), chills, body aches, change in appetite, change in weight, malaise, night sweats, diaphoresis, change in sleep pattern, daytime sleepiness or snoring Eyes: Denies: change in vision, blurry vision, photophobia, eye discomfort or eye discharge ENMT: Denies: throat pain, enlarged tonsils, hoarseness, mouth pain, oral sores, dry mouth, tinnitus, nasal congestion or post nasal drip Card: Denies: chest pain, palpitations, irregular heart rhythm, edema, swelling of feet/ankles, lightheadedness, syncope, pre-syncope, dyspnea on exertion, orthopnea, leg pain with exertion or acrocyanosis Resp: Denies: dyspnea, productive cough, non-productive cough, wheezing, stridor, pain on inspiration, change in phlegm color, hemoptysis or chest congestion GI: Denies: abdominal pain, nausea, vomiting, hematemesis, coffee ground emesis, dysphagia, heartburn, diarrhea, constipation, bloating, GI cramping, change in bowel habits, pain on defecation, hematochezia or melena : Denies: flank pain, dysuria, urinary frequency, urinary urgency, urinary hesitancy, nocturia or hematuria Musc: Denies: neck pain, back pain, extremity pain, joint pain, joint swelling, joint redness, joint stiffness or limited range of motion Neuro: Denies: headache(s), numbness in extremities, weakness in extremities, sensory changes, lack of coordination, difficulty walking, frequent falls, dizziness, vertigo, confusion, Slurred speech present, difficulty communicating thoughts or seizure-like activity Psych: Denies: anxiety, depression, mood swings, panic attacks, hopelessness or irritability Endo: Denies: polyuria, polydipsia, tired all the time, cold intolerance, excessive sweating, flushing or heat intolerance Boris/Lymph: Denies: easy bruising or easy bleeding All/Imm: Denies: tongue swelling, facial swelling or acute wheezing Medications/Allergies Home Medications Medication Instructions Recorded Confirmed Last Taken Type acetaminophen 325 mg tablet 650 mg PO Q4H PRN Pain 06/17/21 07/14/23 02/23/23 History bisacodyl 10 mg rectal suppository 10 mg NE DAILY PRN Constipation 06/17/21 07/14/23 01/19/23 History furosemide 20 mg tablet (Lasix) 20 mg PO DAILY 06/17/21 07/14/23 07/14/23 History magnesium hydroxide 400 mg/5 mL 30 ml PO DAILY PRN Constipation 06/17/21 07/14/23 02/17/23 History oral suspension (Milk of Magnesia) sodium phosphates 19 gram-7 118 ml NE DAILY PRN Constipation 06/17/21 07/14/23 Unknown History gram/118 mL enema (Fleet Enema) bismuth subsalicylate 262 mg/15 mL See Rx Instructions .Route 03/13/23 07/14/23 02/12/23 History oral suspension (Pepto-Bismol) .COMPLEX PRN Diarrhea ferrous sulfate 325 mg (65 mg See Rx Instructions .Route .COMPLEX 03/13/23 07/14/23 07/14/23 History iron) tablet (Iron (ferrous sulfate)) fluticasone propionate 50 1 spray intranasal DAILY 03/13/23 07/14/23 06/23/23 History mcg/actuation nasal spray,suspension guaifenesin 600 mg tablet, 600 mg PO BID 03/13/23 07/14/23 07/14/23 History extended release 12 hr (Mucinex) menthol 5.8 mg lozenges ([place] 5.8 mg mucous membrane Q4H PRN 03/13/23 07/14/23 06/12/23 History Cough Drops) Cough mirtazapine 7.5 mg tablet 7.5 mg PO BEDTIME 03/13/23 07/14/23 07/13/23 History nystatin 100,000 unit/gram topical See Rx Instructions .Route .COMPLEX 03/13/23 07/14/23 07/14/23 History powder paliperidone palmitate 117 mg/0.75 117 mg IM Q30D 03/13/23 07/14/23 06/17/23 History mL intramuscular syringe (Invega Sustenna) pantoprazole 20 mg tablet,delayed 20 mg PO DAILY 03/13/23 07/14/23 07/14/23 History release Dakin's Solution See Rx Instructions .Route .COMPLEX 07/14/23 07/14/23 07/13/23 History Santyl See Rx Instructions .Route .COMPLEX 07/14/23 07/14/23 07/03/23 History acetaminophen 325 mg-DM 10 mg/10 10 ml PO Q6H PRN cough or 07/14/23 07/14/23 Unknown History mL oral liquid (Robitussin congestion Cough-Sore Throat) honey 80 % topical gel (MediHoney See Rx Instructions .Route .COMPLEX 07/14/23 07/14/23 07/09/23 History (honey)) polyvinyl alcohol-povidone 0.5 1 drp ophthalmic (eye) TID PRN Dry 07/14/23 07/14/23 Unknown History %-0.6 % eye drops (Clear Eyes Eyes Natural Tears) Allergies Allergy/AdvReac Type Severity Reaction Status Date / Time No Known Allergies Allergy Verified 03/14/23 17:03 PFSH Acute 2 PFSH: Medical History (Updated 07/15/23 @ 08:48 by Raudel Oh MD) Schizophrenia Microcytic anemia Social History (Updated 07/15/23 @ 08:48 by Raudel Oh MD) Smoking and tobacco/nicotine status: never used tobacco/nicotine Alcohol intake: unknown Substance/Drug Use: unknown Housing: Senior Living Vitals/I&O/Wt Last Vital Signs Temp 102.1 F H 07/14/23 15:05 Pulse 101 H 07/14/23 17:25 Resp 15 07/14/23 17:25 BP 118/62 07/14/23 17:25 Pulse Ox 94 07/14/23 17:25 O2 Del Method Room Air 07/14/23 18:03 O2 Flow Rate 4 07/14/23 13:48 07/14/23 07/14/23 07/14/23 06:59 14:59 22:59 Intake Total 1350 / 1350 Balance 1350 / 1350 Weight last 48 hrs Weight 56.245 kg Weight 63.503 kg Physical Exam 2 Narrative: General: No acute distress, AO x3 HEENT: PERRLA, pupils bilaterally equal and reactive Chest: Normal vesicular breath sounds, no added sounds, equal good air entry bilaterally CVS: S1-S2 regular, no murmurs, no tachycardia, no gallops, no rubs Abdomen: Soft, nontender, no organomegaly, bowel sounds present Neuro: No focal deficits, no facial deformity, AO x3, power 5/5 in all limbs Patient does have significant decub ulcers bilaterally Urinary Catheter Management: Daley: Cath Placed During This Visit: yes Reason for Continuing Indwelling Catheter: Assist healing open wound Urinary Catheter Date of Insertion: 07/14/23 Urinary Catheter Time of Insertion: 15:03 Data 07/15/23 04:17 07/15/23 04:17 Micro: Microbiology 07/14/23 14:27 Blood Culture - Preliminary Blood SPECIMEN COLLECTED 07/14/23 14:22 Blood Culture - Preliminary Blood SPECIMEN COLLECTED A&P Assessment and plan (1) Acute cystitis: As seen on UA on admission. Follow-up blood culture and urine culture. Check MRSA swab. Check respiratory viral panel Daley placed in the ER. For now continue with IV vancomycin and Zosyn. Will de-escalate as per culture results. Qualifiers: Hematuria presence: without hematuria Qualified Code(s): N30.00 - Acute cystitis without hematuria (2) Decubitus ulcer: For now continue with wound care as per wound care at custodial. Will get pelvic CT scan with contrast to rule out underlying collection. Will consult surgery for need of debridement. Qualifiers: Laterality: unspecified laterality Pressure injury location: buttock P ressure injury stage: unspecified pressure injury stage Qualified Code(s): L 89.309 - Pressure ulcer of unspecified buttock, unspecified stage (3) Microcytic anemia: Chronic history with history of blood and iron transfusion in the past. Check TIBC, iron panel, vitamin B12 and folate levels. Transfuse if hemoglobin falls below 8. Plan CODE STATUS: Discussed in detail with the patient. Confirmed with [facility]. Patient does not have a DPOA. Full code. Cardiac diet Heparin 5000 every 12 hourly for DVT prophylaxis Protonix for PUD prophylaxis. Patient wants physician to get in touch with her brother Mr. Zapien. Tried calling several on the provided phone number. Unable to reach out. As per [facility] and patient's court appointed conservator Ms. Suazo her brother in the past as well has been difficult to get in touch with. Attestations 2 Medical Necessity Statement*: Requires admission for more than 2 midnights for management of acute cystitis, significant decubitus ulcer needing possible debridement. Diagnoses Acute cystitis N30.00 Hematuria presence: without hematuria Decubitus ulcer L89.309 Laterality: unspecified laterality Pressure injury location: buttock Pressure injury stage: unspecified pressure injury stage Microcytic anemia D50.9
[2023-07-14 19:22] LABS: Procalcitonin 1.12 ng/mL (0-0.5); Thyroid Stimulating Hormone 2.04 uIU/mL (0.27-4.20); Vitamin B12 214 pg/mL (232-1245)
[2023-07-14 19:32] LABS: Iron 11 ug/dL (37-145); Percent Saturation 9.8 % (20-50); Total Iron Binding Capacity 112 mcg/dl; Unsaturated Iron Binding 101 ug/dL (112-347)
[2023-07-14] MEDS: sodium chloride 0.9% 1,000 ML 75 ML IV (19:34)
[2023-07-14] MEDS: pantoprazole 40 mg SDV IVP (19:34)
[2023-07-14] MEDS: heparin 5,000 unit/mL INJ 1 mL 5000 UNIT SUBCUT (19:35)
[2023-07-15] VITALS (7 sets, daily range): BP systolic 93–111; BP diastolic 54–65; PULSE 60–87; RESP 16–19; TEMP 36.5–38.2; O2SAT 92–94; BMI 21.9
[2023-07-15] MEDS: piperacillin-tazobactam 3.375 GM in sodium chloride 0.9% (plus) 50 ML IV ×3 (01:02→20:04)
[2023-07-15 05:10] LABS: Basophils % 0.2 %; Eosinophils % 0.5 %; Hematocrit 24.1 % (36-47); Lymphocytes # 1.2 10^3/uL (0.8-4.8); Lymphocytes % 13.7 %; Mean Corpuscular HGB Conc 29.9 g/dL (30-55); Mean Corpuscular Hemoglobin 26.7 pg (27-33); Mean Corpuscular Volume 89.3 fl (85-98); Mean Platelet Volume 9.5 fL (7.4-10.4); Monocytes # 0.6 10^3/uL (0.2-0.9); Monocytes % 6.7 %; Neutrophils # 6.84 10^3/uL (1.8-7.7); Neutrophils % 78.2 %; Nucleated Red Blood Cells % 0 %; Platelet Count 302 10^3/cmm (157-399); Red Cell Distribution Width 13.8 % (12.1-15.1); White Blood Count 8.75 10^3/uL (3.29-11.43)
[2023-07-15 05:37] LABS: Alanine Aminotransferase 18 U/L (0-33); Albumin Level 1.9 g/dL (3.5-5.2); Alkaline Phosphatase 62 U/L (35-105); Anion Gap 12.6 (5-19); Aspartate Amino Transferase 26 U/L (0-32); Blood Urea Nitrogen 9 mg/dL (8-23); Calcium 7.5 mg/dL (8.5-10.5); Carbon Dioxide 22 mmol/L (22-29); Chloride 105 mmol/L (98-107); Chol HDL Ratio 4.32 mg/dL (0.0-4.40); Cholesterol 95 mg/dL (0-200); Globulin 2.5 g/dL (1.3-4.6); Glucose 109 mg/dL (65-115); HDL Cholesterol 22 mg/dL (60-100); LDL Cholesterol Calculated 55 mg/dL (50-129); Magnesium 2.2 mg/dL (1.7-2.3); Osmolality Calculated 281 mOsm/kg (285-295); Phosphorus 2.5 mg/dL (2.5-4.5); Potassium 3.6 mmol/L (3.5-5.1); Sodium 136 mmol/L (136-145); Total Bilirubin 0.3 mg/dL (0.15-1.2); Total Protein 4.4 g/dL (6.6-8.7); Triglycerides 89 mg/dL (0-150)
[2023-07-15 05:55] LABS: Estmated Average Glucose 126
[2023-07-15] MEDS: heparin 5,000 unit/mL INJ 1 mL 5000 UNIT SUBCUT ×2 (06:14→17:25)
[2023-07-15] MEDS: sodium chloride 0.9% 1,000 ML 75 ML IV ×2 (08:26→20:03)
--- NOTE | 2023-07-15 08:27 | CT_ITS ---
WS: [id number] CT pelvis TECHNIQUE: Contrast-enhanced CT of the pelvis with coronal and sagittal reformatted images. CLINICAL INFORMATION: significant decub ulcer, possible underlying collection COMPARISON: None. DLP: 381.[address] scans at [facility] use at least one of these dose optimization techniques: automated e xposure control; mA and/or kV adjustment per patient size (includes targeted exams where dose is matc hed to clinical indication); or iterative reconstruction. FINDINGS: Bilateral decubitus ulcers overlying bilateral ischial tuberosities. No evidence of drainable abscess or fluid collection. Surrounding cellulitis. Decubitus ulcers extend down to the ischial tuberositie s bilaterally with osteolysis involving the LEFT greater than RIGHT underlying bone compatible with o steomyelitis. Normal sacrum. Normal sacral ala. Daley catheter. Diffuse bladder wall thickening. Diffuse body wall anasarca. A few reactive inguinal lymph nodes. Filling defects in the LEFT common femoral, femoral an d deep femoral veins suspicious for DVT. Recommend further evaluation with ultrasound. IMPRESSION: 1. 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 2. No drainable abscess or fluid collection. 3. Suspected DVT within the LEFT common femoral, femoral and deep femoral veins. Recommend further e valuation with ultrasound. Notified Raudel Oh MD at 07/15/2023 10:03 AM.
--- NOTE | 2023-07-15 09:03 | PC.CHAP ---
Pastoral Care Encounter/Spiritual Assessment Type of Contact [] Declined dyed yarn operator visit [] Patient/Family/Request visit [] Outpatient visit [] Follow-up visit [] Physician referral [] Code/Alert [] Routine visit [] Staff referral [] Actively dying [] Patient sleeping [] Family support [] [] Out of room [] Palliative care [] [x] Receiving care in room [] Pre-surgical visit [] Trauma [] Long length of stay [] ICU visit [] Other: Relational/Emotional Strength [] Patient feels connected with others/family/visitors/staff [] Distress [] Loneliness/isolation [] Abandonment Spirituality of Patient [] Person of Melvi [] Attends Mu-Ism of their Melvi [] Believes in Prayer [] Reads Bible or Gnosticism materials [] There are Spiritual issues to be addressed Sas Architect Interventions [] Prayer [] Active listening [] Non-anxious presence [] Spiritual/emotional support [] Crisis/trauma care [] Spiritual counseling [] Bereavement support [] Provided bereavement packet [] Provided Bible/devotional materials [] Provided toy/stuffed animal, coloring book to patient or family member [] Provided Communion [] Anointing/[place] [] Salvation [] Completed spiritual assessment [] Other: Impact on Illness or Injury [] Angry [] Fearful [] Anxious [] Often cries [] Exhaustion [] Unable to work [] Unable to attend anglican [] Unable to walk/stand [] Unable to read [] Unable to drive [] Unable to eat/drink [] Unable to sleep [] Unable to be with family [] Patient intubated [] Other: Summary Time spent with patient
[2023-07-15 09:11] LABS: Reticulocyte % 1.3 % (0.5-2.0)
[2023-07-15] MEDS: iohexol 350 mg/mL 500 mL Btl (per mL) IV (09:39)
--- NOTE | 2023-07-15 10:34 | USCV_ITS ---
Josiah Mohr Age: 72 Gender: F : 1950 Exam Date: 07/15/2023 12:26 Ordering Phys: Raudel Oh MD Technologist: Thomas Philip [place] [facility] [place]ication: swelling PROCEDURES: The venous duplex Doppler examination of both lower extremities was performed in the standard fashion. The following venous structures were evaluated: common femoral vein, profunda vein, proximal portion of the greater saphenous vein, superficial femoral vein, and the popliteal vein. In addition, the posterior tibial and peroneal trunk were evaluated. FINDINGS: Lt leg dvt from cfv, fenoral and popletial veins. Rt side is neg. I notified the Dr farrell with prelimary CONCLUSIONS LEFT DVT involving common femoral, femoral, and popliteal veins. RIGHT LE is negative PRElIM to DR Oh at time of exam by refinery operator Message left at 1630 Alberto Miles MD (Electronically Signed) Final Date: 15 July 2023 16:32 S
[2023-07-15] MEDS: iron sucrose 200 MG in sodium chloride 0.9% (100 ml) 100 ML 220 MG IV (11:15)
[2023-07-15] MEDS: cyanocobalamin 1,000 mcg/mL SDV 1000 MCG IM (11:16)
[2023-07-15] MEDS: acetaminophen 325 mg Tablet 650 MG PO (12:20)
[2023-07-15 14:24] LABS: Adenovirus Not Detected (NOT DETECT); Chlamydia Pneumoniae Not Detected (NOT DETECT); Coronavirus 229E,HKU1,NL63,OC4 Not Detected (NOT DETECT); Human Metapneumovirus Not Detected (NOT DETECT); Human Rhinovirus/Enterovirus Not Detected (NOT DETECT); Influenza A Not Detected (NOT DETECT); Influenza A H1 Not Detected (NOT DETECT); Influenza A H1-2009 Not Detected (NOT DETECT); Influenza A H3 Not Detected (NOT DETECT); Influenza B Not Detected (NOT DETECT); Mycoplasma Pneumoniae Not Detected (NOT DETECT); Parainfluenza Virus Type 1 Not Detected (NOT DETECT); Parainfluenza Virus Type 2 Not Detected (NOT DETECT); Parainfluenza Virus Type 3 Not Detected (NOT DETECT); Parainfluenza Virus Type 4 Not Detected (NOT DETECT); Respiratory Syncytial Virus A Not Detected (NOT DETECT); Respiratory Syncytial Virus B Not Detected (NOT DETECT); SARS-COV-2 Not Detected (NOT DETECT)
--- NOTE | 2023-07-15 15:18 | P.PN_ITS ---
Subjective 2 Subjective: No acute events overnight. Patient has remained awake and alert. Denies any nausea vomiting, headache. Has remained hemodynamically stable. Tmax in last 24 hours 102 Fahrenheit on admission yesterday 100.8 earlier today morning. Remains on room air. Vitals/I&O/Wt Last Vital Signs Temp 100.8 F H 07/15/23 11:41 Pulse 60 07/15/23 11:41 Resp 16 07/15/23 11:41 BP 111/65 07/15/23 11:41 Pulse Ox 94 07/15/23 11:41 O2 Del Method Room Air 07/15/23 11:41 O2 Flow Rate 4 07/14/23 13:48 07/15/23 07/15/23 07/15/23 06:59 14:59 22:59 Intake Total 50 / 2450 2044 Output Total 425 / 1025 Balance -375 / 1425 2044 / 2044 Weight last 48 hrs Weight 56.245 kg Weight 56.245 kg Weight 63.503 kg Physical Exam 2 Narrative: General: No acute distress, AO x3 HEENT: PERRLA, pupils bilaterally equal and reactive Chest: Normal vesicular breath sounds, no added sounds, equal good air entry bilaterally CVS: S1-S2 regular, no murmurs, no tachycardia, no gallops, no rubs Abdomen: Soft, nontender, no organomegaly, bowel sounds present Neuro: No focal deficits, no facial deformity, AO x3, power 5/5 in all limbs Patient does have significant decub ulcers bilaterally Urinary Catheter Management: Daley: Cath Placed During This Visit: yes Reason for Continuing Indwelling Catheter: Assist Healing of Perineal & Sacral Wounds- Incontinent Patients Urinary Catheter Date of Insertion: 07/14/23 Urinary Catheter Time of Insertion: 15:03 Data 07/15/23 04:17 07/15/23 04:17 Micro: Microbiology 07/14/23 14:27 Blood Culture - Preliminary Blood NEGATIVE TO DATE 07/14/23 14:22 Blood Culture - Preliminary Blood NEGATIVE TO DATE 07/14/23 14:45 Urine Culture - Preliminary Urine Catheterized Gram Negative Rods A&P Assessment and plan (1) Acute cystitis: As seen on UA on admission. Follow-up blood culture and urine culture. MRSA swab pending, respiratory viral panel negative. Daley placed in the ER. For now continue with IV vancomycin and Zosyn. Will de-escalate as per culture results. Qualifiers: Hematuria presence: without hematuria Qualified Code(s): N30.00 - Acute cystitis without hematuria (2) Decubitus ulcer: For now continue with wound care as per wound care at [facility]. CT pelvic spine consistent with infected decubitus ulcer extending down to ischial tuberosity with evidence of osteomyelitis bilaterally left more than right. Surgical consultation appreciated. Possibility of further debridement. Patient would most likely need follow-up cultures and IV antibiotics for overall 6 weeks as per the culture sensitivities. Will plan for PICC line placement if blood cultures from admission remain negative. Qualifiers: Laterality: unspecified laterality Pressure injury location: buttock P ressure injury stage: unspecified pressure injury stage Qualified Code(s): L 89.309 - Pressure ulcer of unspecified buttock, unspecified stage (3) Microcytic anemia: Chronic history with history of blood and iron transfusion in the past. Iron panel consistent with iron deficiency and vitamin B12 deficiency. Start on IV iron supplementation, vitamin B12 supplementation. Check reticulocyte count. (4) Acute osteomyelitis, pelvis: Plan CODE STATUS: Discussed in detail with the patient. Confirmed with [facility]. Patient does not have a DPOA. Full code. Cardiac diet Heparin 5000 every 12 hourly for DVT prophylaxis Protonix for PUD prophylaxis. Patient wants physician to get in touch with her brother Mr. Zapien. Tried calling several on the provided phone number. Unable to reach out. As per [facility] and patient's court appointed conservator Ms. Suazo her brother in the past as well has been difficult to get in touch with. Attestations 2 Medical Necessity Statement*: Requires further hospitalization for management of decubitus ulcer with sacral osteomyelitis, UTI while patient requires further OR debridement Diagnoses Acute cystitis N30.00 Hematuria presence: without hematuria Decubitus ulcer L89.309 Laterality: unspecified laterality Pressure injury location: buttock Pressure injury stage: unspecified pressure injury stage Microcytic anemia D50.9 Acute osteomyelitis, pelvis M86.159
[2023-07-15] MEDS: vancomycin 1,000 MG in sodium chloride 0.9% 250 ML 250 MG IV (15:44)
--- NOTE | 2023-07-15 16:10 | P.CONIM_ITS ---
Providers/Reason For Consult 2 Consulting Physician/Specialty*: Dr. Ambrosio Muñiz, DO/General surgery Reason for Consult*: Bilateral ischial tuberosity decubitus ulcers Attending Physician: Raudel Oh MD Primary Care Provider: Meliton Stevens DO History of Present Illness History of Present Illness Josiah Mohr is a 72 year old female who presented [facility] the hospital [facility] a [facility] due to increased weakness and fever. She is found to have a UTI while in the ER. She has chronic bilateral ischial tuberosity decubitus ulcers that are being treated by wound care nurses only in the [facility], reportedly. Patient denies having any pain at the site. She does report 1 fever prior to arrival Review of Systems 2 General: Reports: 10 or more systems reviewed and unremarkable except in HPI and below Medications/Allergies Home Medications Medication Instructions Recorded Confirmed Last Taken Type acetaminophen 325 mg tablet 650 mg PO Q4H PRN Pain 06/17/21 07/14/23 02/23/23 History bisacodyl 10 mg rectal suppository 10 mg IA DAILY PRN Constipation 06/17/21 07/14/23 01/19/23 History furosemide 20 mg tablet (Lasix) 20 mg PO DAILY 06/17/21 07/14/23 07/14/23 History magnesium hydroxide 400 mg/5 mL 30 ml PO DAILY PRN Constipation 06/17/21 07/14/23 02/17/23 History oral suspension (Milk of Magnesia) sodium phosphates 19 gram-7 118 ml IA DAILY PRN Constipation 06/17/21 07/14/23 Unknown History gram/118 mL enema (Fleet Enema) bismuth subsalicylate 262 mg/15 mL See Rx Instructions .Route 03/13/23 07/14/23 02/12/23 History oral suspension (Pepto-Bismol) .COMPLEX PRN Diarrhea ferrous sulfate 325 mg (65 mg See Rx Instructions .Route .COMPLEX 03/13/23 07/14/23 07/14/23 History iron) tablet (Iron (ferrous sulfate)) fluticasone propionate 50 1 spray intranasal DAILY 03/13/23 07/14/23 06/23/23 History mcg/actuation nasal spray,suspension guaifenesin 600 mg tablet, 600 mg PO BID 03/13/23 07/14/23 07/14/23 History extended release 12 hr (Mucinex) menthol 5.8 mg lozenges ([place] 5.8 mg mucous membrane Q4H PRN 03/13/23 07/14/23 06/12/23 History Cough Drops) Cough mirtazapine 7.5 mg tablet 7.5 mg PO BEDTIME 03/13/23 07/14/23 07/13/23 History nystatin 100,000 unit/gram topical See Rx Instructions .Route .COMPLEX 03/13/23 07/14/23 07/14/23 History powder paliperidone palmitate 117 mg/0.75 117 mg IM Q30D 03/13/23 07/14/23 06/17/23 History mL intramuscular syringe (Invega Sustenna) pantoprazole 20 mg tablet,delayed 20 mg PO DAILY 03/13/23 07/14/23 07/14/23 History release Dakin's Solution See Rx Instructions .Route .COMPLEX 07/14/23 07/14/23 07/13/23 History Santyl See Rx Instructions .Route .COMPLEX 07/14/23 07/14/23 07/03/23 History acetaminophen 325 mg-DM 10 mg/10 10 ml PO Q6H PRN cough or 07/14/23 07/14/23 Unknown History mL oral liquid (Robitussin congestion Cough-Sore Throat) honey 80 % topical gel (MediHoney See Rx Instructions .Route .COMPLEX 07/14/23 07/14/23 07/09/23 History (honey)) polyvinyl alcohol-povidone 0.5 1 drp ophthalmic (eye) TID PRN Dry 07/14/23 07/14/23 Unknown History %-0.6 % eye drops (Clear Eyes Eyes Natural Tears) Allergies Allergy/AdvReac Type Severity Reaction Status Date / Time No Known Allergies Allergy Verified 03/14/23 17:03 Current Medications Generic Name Dose Route Start Last Admin Trade Name Freq PRN Reason Stop Dose Admin Acetaminophen 650 mg 07/14/23 18:30 07/15/23 12:20 Acetaminophen 325 Mg Tablet PO 650 mg Q6H PRN Administration Mild/Mod Pain Or Temp >/= 101 Cyanocobalamin 1,000 mcg 07/15/23 09:00 07/15/23 11:16 Cyanocobalamin 1,000 Mcg/Ml Sdv IM 1,000 mcg DAILY SUSAN Administration Heparin Sodium (Porcine) 5,000 unit 07/14/23 18:30 07/15/23 06:14 Heparin 5,000 Unit/Ml Inj 1 Ml SUBCUT 5,000 unit Q12H SUSAN Administration Sodium Chloride 1,000 mls @ 75 mls/hr 07/14/23 18:30 07/15/23 08:26 Sodium Chloride 0.9% IV 75 mls/hr .[id number] SUSAN Administration Piperacillin Sod/Tazobactam 50 mls @ 12.5 mls/hr 07/15/23 01:00 07/15/23 12:32 Sod 3.375 gm/ Sodium Chloride IV Infused Q8H SUSAN Infusion Vancomycin HCl 1,000 mg/ 250 mls @ 250 mls/hr 07/15/23 15:00 07/15/23 15:44 Sodium Chloride IV 250 mls/hr Q24H SUSAN Administration Iron Sucrose 200 mg/ Sodium 110 mls @ 220 mls/hr 07/15/23 09:00 07/15/23 11:45 Chloride IV 07/19/23 09:29 Infused Q24H SUSAN Infusion Pantoprazole Sodium 40 mg 07/14/23 18:30 07/14/23 19:34 Pantoprazole 40 Mg Sdv IVP 40 mg Q24H SUSAN Administration PFSH Acute 2 PFSH: Medical History Schizophrenia Microcytic anemia Social History Smoking and tobacco/nicotine status: never used tobacco/nicotine Alcohol intake: unknown Substance/Drug Use: unknown Housing: Half-Way Vitals/I&O/Wt Last Vital Signs Temp 98.5 F 07/15/23 15:54 Pulse 87 07/15/23 15:54 Resp 17 07/15/23 15:54 BP 111/62 07/15/23 15:54 Pulse Ox 93 07/15/23 15:54 O2 Del Method Room Air 07/15/23 15:54 O2 Flow Rate 4 07/14/23 13:48 07/15/23 07/15/23 07/15/23 06:59 14:59 22:59 Intake Total 50 / 2450 2044 Output Total 425 / 1025 650 / 650 Balance -375 / 1425 2044 -650 / 1395 Weight last 48 hrs Weight 128 lb 4 oz Weight 124 lb Weight 124 lb Weight 140 lb Physical Exam 2 Narrative: General : Patient is well developed , no acute distress, oriented x3 Head : Normal cephalic, a-traumatic. Ears : Pinnae and external canal are normal. Hearing is normal. Eyes : PERRLA, Sclera and injection are normal. No conjunctival discharge. Nose : Mucous membranes are without erythema. Throat : buccal mucosa is normal, gums are without significant recession or hypertrophy. Lungs : Equal chest rise bilaterally, no use of accessory muscles, trachea is midline. Cor : Rate and rhythm are normal. Abdomen : Soft, ND, NT, no g/r/m Extremities : No edema, no cyanosis or clubbing, dorsalis pedis pulses are present bilaterally, non-tender to palpation of calves. Upper extremities are normal bilaterally. Back : non-tender to palpation, no CVA tenderness. Skin: There are stage IV decubitus ulcers of the bilateral ischial tuberosities. There is some exudate in these wounds with moderate surrounding erythema Neuro : CN II - XII intact, Upper and lower extremities have equal and full strength Urinary Catheter Management: Daley: Cath Placed During This Visit: yes Reason for Continuing Indwelling Catheter: Assist Healing of Perineal & Sacral Wounds- Incontinent Patients Urinary Catheter Date of Insertion: 07/14/23 Urinary Catheter Time of Insertion: 15:03 Data 07/15/23 04:17 07/15/23 04:17 Micro: Microbiology 07/14/23 14:27 Blood Culture - Preliminary Blood NEGATIVE TO DATE 07/14/23 14:22 Blood Culture - Preliminary Blood NEGATIVE TO DATE 07/14/23 14:45 Urine Culture - Preliminary Urine Catheterized Gram Negative Rods A&P Assessment and plan (1) Stage IV decubitus ulcer: (2) Acute osteomyelitis, pelvis: Plan CT shows evidence of osteomyelitis 2 OR tomorrow for sharp excisional debridement of bilateral ischial tuberosity decubitus ulcers and possible wound VAC placement Risks and benefits of the procedure, including but not limited to, bleeding, infection, scar, numbness, pain, damage to surrounding structures, was explained to the patient. She is understanding of the risks and wishes to proceed. Coding Level of Care Code 38330 Diagnoses Stage IV decubitus ulcer L89.94 Acute osteomyelitis, pelvis M86.159
[2023-07-15] MEDS: pantoprazole 40 mg SDV IVP (18:16)
--- NOTE | 2023-07-15 18:45 | PC.NURSE ---
Packing removed from bilateral buttock wounds, cleaned with sterile water and sterile gauze. Wounds repacked wet to dry and optifoams placed on top. ABD dressing taken off of wound on back. Cleaned with sterile water and gauze and a new ABD placed. Pt tolerated well.
[2023-07-16] VITALS (17 sets, daily range): BP systolic 106–157; BP diastolic 53–100; PULSE 58–98; RESP 15–18; TEMP 36.1–36.8; O2SAT 90–98
[2023-07-16] MEDS: piperacillin-tazobactam 3.375 GM in sodium chloride 0.9% (plus) 50 ML IV ×3 (03:03→20:34)
[2023-07-16] MEDS: heparin 5,000 unit/mL INJ 1 mL 5000 UNIT SUBCUT ×2 (04:57→17:54)
[2023-07-16] MEDS: cyanocobalamin 1,000 mcg/mL SDV 1000 MCG IM (08:26)
[2023-07-16] MEDS: iron sucrose 200 MG in sodium chloride 0.9% (100 ml) 100 ML 220 MG IV (08:26)
[2023-07-16 10:18] LABS: Basophils % 0.3 %; Eosinophils % 0.4 %; Hematocrit 26.9 % (36-47); Lymphocytes # 1.4 10^3/uL (0.8-4.8); Lymphocytes % 14.9 %; Mean Corpuscular HGB Conc 30.9 g/dL (30-55); Mean Corpuscular Hemoglobin 27.4 pg (27-33); Mean Corpuscular Volume 88.8 fl (85-98); Monocytes # 0.5 10^3/uL (0.2-0.9); Monocytes % 5.9 %; Neutrophils # 7.14 10^3/uL (1.8-7.7); Neutrophils % 77.8 %; Nucleated Red Blood Cells % 0 %; Platelet Count 379 10^3/cmm (157-399); Red Blood Count 3.03 10^6/uL (3.85-5.65); Red Cell Distribution Width 13.9 % (12.1-15.1); White Blood Count 9.18 10^3/uL (3.29-11.43)
[2023-07-16 10:25] LABS: Alanine Aminotransferase 18 U/L (0-33); Albumin Level 2.2 g/dL (3.5-5.2); Alkaline Phosphatase 76 U/L (35-105); Anion Gap 12.2 (5-19); Aspartate Amino Transferase 19 U/L (0-32); Blood Urea Nitrogen 5 mg/dL (8-23); Calcium 7.7 mg/dL (8.5-10.5); Carbon Dioxide 23 mmol/L (22-29); Chloride 105 mmol/L (98-107); Globulin 2.7 g/dL (1.3-4.6); Glucose 100 mg/dL (65-115); Osmolality Calculated 281 mOsm/kg (285-295); Potassium 3.2 mmol/L (3.5-5.1); Sodium 137 mmol/L (136-145); Total Bilirubin 0.2 mg/dL (0.15-1.2); Total Protein 4.9 g/dL (6.6-8.7)
[2023-07-16] MEDS: sodium chloride 0.9% 1,000 ML 30 ML IV (12:40)
--- NOTE | 2023-07-16 13:52 | P.ANESASSM_ITS ---
Pre-Anesthetic Assessment Height/Weight: Height 1.6 m Weight 60.951 kg Temp Pulse Resp BP Pulse Ox O2 Del Method O2 Flow Rate 98.2 F 75 16 110/58 94 Room Air 4 07/16/23 12:20 07/16/23 12:20 07/16/23 12:20 07/16/23 12:20 07/16/23 12:20 07/16/23 12:20 07/14/23 13:48 Operation Date: 07/16/23 12:40 Proposed Procedures p Debridement(Bilateral) - Ambrosio Muñiz DO Familial anesthetic complications: None Was Beta Jt taken within 24 hours: N/A Was Clonidine taken within 24 hours: N/A Last intake: Intake Last Liquid Date 07/15/23 Last Liquid Time 22:00 Last Solid Date 07/15/23 Last Solid Time 18:00 Social No alcohol and No tobacco Exam alert, oriented x 3, clear to auscultation bilaterally and regular rate & rhythm Airway Mallampati: Class II Dentition: full and other (very poor dentition) GI Gastroesophageal Reflux Disease Anesthetic Plan ASA status: 2 Anesthesia: General Risk of > 500 ml blood loss (7ml/kg in children): No Medications/Allergies Home Medications Medication Instructions Recorded Confirmed Last Taken Type acetaminophen 325 mg tablet 650 mg PO Q4H PRN Pain 06/17/21 07/14/23 02/23/23 History bisacodyl 10 mg rectal suppository 10 mg DE DAILY PRN Constipation 06/17/21 07/14/23 01/19/23 History furosemide 20 mg tablet (Lasix) 20 mg PO DAILY 06/17/21 07/14/23 07/14/23 History magnesium hydroxide 400 mg/5 mL 30 ml PO DAILY PRN Constipation 06/17/21 07/14/23 02/17/23 History oral suspension (Milk of Magnesia) sodium phosphates 19 gram-7 118 ml DE DAILY PRN Constipation 06/17/21 07/14/23 Unknown History gram/118 mL enema (Fleet Enema) bismuth subsalicylate 262 mg/15 mL See Rx Instructions .Route 03/13/23 07/14/23 02/12/23 History oral suspension (Pepto-Bismol) .COMPLEX PRN Diarrhea ferrous sulfate 325 mg (65 mg See Rx Instructions .Route .COMPLEX 03/13/23 07/14/2307/14/23 History iron) tablet (Iron (ferrous sulfate)) fluticasone propionate 50 1 spray intranasal DAILY 03/13/23 07/14/23 06/23/23 History mcg/actuation nasal spray,suspension guaifenesin 600 mg tablet, 600 mg PO BID 03/13/23 07/14/23 07/14/23 History extended release 12 hr (Mucinex) menthol 5.8 mg lozenges ([place] 5.8 mg mucous membrane Q4H PRN 03/13/23 07/14/23 06/12/23 History Cough Drops) Cough mirtazapine 7.5 mg tablet 7.5 mg PO BEDTIME 03/13/23 07/14/23 07/13/23 History nystatin 100,000 unit/gram topical See Rx Instructions .Route .COMPLEX 03/13/23 07/14/23 07/14/23 History powder paliperidone palmitate 117 mg/0.75 117 mg IM Q30D 03/13/23 07/14/23 06/17/23 History mL intramuscular syringe (Invega Sustenna) pantoprazole 20 mg tablet,delayed 20 mg PO DAILY 03/13/23 07/14/23 07/14/23 History release Dakin's Solution See Rx Instructions .Route .COMPLEX 07/14/23 07/14/23 07/13/23 History Santyl See Rx Instructions .Route .COMPLEX 07/14/23 07/14/23 07/03/23 History acetaminophen 325 mg-DM 10 mg/10 10 ml PO Q6H PRN cough or 07/14/23 07/14/23 Unknown History mL oral liquid (Robitussin congestion Cough-Sore Throat) honey 80 % topical gel (MediHoney See Rx Instructions .Route .COMPLEX 07/14/23 07/14/23 07/09/23 History (honey)) polyvinyl alcohol-povidone 0.5 1 drp ophthalmic (eye) TID PRN Dry 07/14/23 07/14/23 Unknown History %-0.6 % eye drops (Clear Eyes Eyes Natural Tears) Allergies Allergy/AdvReac Type Severity Reaction Status Date / Time No Known Allergies Allergy Verified 03/14/23 17:03 Current Medications Generic Name Dose Route Start Last Admin Trade Name Freq PRN Reason Stop Dose Admin Acetaminophen 650 mg 07/14/23 18:30 07/15/23 12:20 Acetaminophen 325 Mg Tablet PO 650 mg Q6H PRN Administration Mild/Mod Pain Or Temp >/= 101 Cyanocobalamin 1,000 mcg 07/15/23 09:00 07/16/23 08:26 Cyanocobalamin 1,000 Mcg/Ml Sdv IM 1,000 mcg DAILY SUSAN Administration Heparin Sodium (Porcine) 5,000 unit 07/14/23 18:30 07/16/23 04:57 Heparin 5,000 Unit/Ml Inj 1 Ml SUBCUT 5,000 unit Q12H SUSAN Administration Sodium Chloride 1,000 mls @ 75 mls/hr 07/14/23 18:30 07/15/23 23:34 Sodium Chloride 0.9% IV 75 mls/hr .[id number] SUSAN Infusion Piperacillin Sod/Tazobactam 50 mls @ 12.5 mls/hr 07/15/23 01:00 07/16/23 12:41 Sod 3.375 gm/ Sodium Chloride IV 12.5 mls/hr Q8H SUSAN Administration Vancomycin HCl 1,000 mg/ 250 mls @ 250 mls/hr 07/15/23 15:00 07/15/23 17:06 Sodium Chloride IV Infused Q24H SUSAN Infusion Iron Sucrose 200 mg/ Sodium 110 mls @ 220 mls/hr 07/15/23 09:00 07/16/23 08:59 Chloride IV Infused Q24H SUSAN Infusion Sodium Chloride 1,000 mls @ 30 mls/hr 07/16/23 12:30 07/16/23 12:40 Sodium Chloride 0.9% IV 07/17/23 12:29 30 mls/hr .Q24H SUSAN Administration Pantoprazole Sodium 40 mg 07/14/23 18:30 07/15/23 18:16 Pantoprazole 40 Mg Sdv IVP 40 mg Q24H SUSAN Administration PFSH Anesthesia Medical History Schizophrenia Microcytic anemia Social History Smoking and tobacco/nicotine status: never used tobacco/nicotine Alcohol intake: unknown Substance/Drug Use: unknown Housing: Senior Living Data Anesthesia 07/16/23 09:56 07/16/23 09:56 Short CBC 07/14/23 07/15/23 07/16/23 Range/Units 14:22 04:17 09:56 WBC 13.80 H 8.75 9.18 (3.29-11.43) 10^3/uL Hgb 9.30 L 7.20 L 8.30 L (11.27-16.99) g/dL Hct 29.2 L 24.1 L 26.9 L (36-47) % MCV 86.6 89.3 88.8 (85-98) fl Plt Count 398 302 379 (157-399) 10^3/cmm Neut % (Auto) 88.9 78.2 77.8 % Neut # (Auto) 12.26 H 6.84 7.14 (1.8-7.7) 10^3/uL BMP 07/14/23 07/14/23 07/15/23 14:22 15:10 04:17 Sodium Cancelled 133 L 136 Potassium Cancelled 3.6 3.6 Chloride Cancelled 98 105 Carbon Dioxide Cancelled 25 22 BUN Cancelled 11 9 Creatinine Cancelled 0.4 L 0.4 L Glucose Cancelled 111 109 Calcium Cancelled 7.8 L 7.5 L 07/16/23 09:56 Sodium 137 Potassium 3.2 L Chloride 105 Carbon Dioxide 23 BUN 5 L Creatinine 0.3 L Glucose 100 Calcium 7.7 L Liver Function 07/14/23 07/14/23 07/15/23 Range/Units 14:22 15:10 04:17 Total Bilirubin Cancelled 0.5 0.3 AST Cancelled 35 H 26 ALT Cancelled 25 18 Alkaline Phosphatase Cancelled 90 62 Albumin Cancelled 2.5 L 1.9 L 07/16/23 Range/Units 09:56 Total Bilirubin 0.2 AST 19 ALT 18 Alkaline Phosphatase 76 Albumin 2.2 L Urine 07/14/23 Range/Units 14:45 Urine Color Yellow (Yellow) Urine Appearance Hazy A (CLEAR) Urine pH 6 (5-7) Ur Specific [place] 1.020 (1.005-1.030) Urine Protein Trace (Negative) Urine Glucose (UA) Norm (Normal) Urine Ketones Negative (Negative) Urine Nitrate Positive H (Negative) Urine Bilirubin 1+ H (Negative) Ur Leukocyte Esterase 1+ H (Negative) Urine RBC 5-10 H (0-2) /hpf Urine WBC 15-25 H (0-5) /hpf Blood Bank 07/16/23 09:56 Blood Type O Negative Rho(D) Type Negative Antibody Screen Negative COVID Results 07/14/23 07/15/23 15:10 12:14 Coronavirus 229E (PCR) Not detected SARS-CoV-2 (PCR) Not detected SARS-CoV-2 Ag (Rapid) negative Coags 07/14/23 07/14/23 14:22 15:10 PT Cancelled 16.40 H INR Cancelled 1.27 H Microbiology 07/14/23 14:45 Urine Culture - Final Urine Catheterized Escherichia coli esbl 07/16/23 04:45 Occult Blood (FIT) - Final Stool - Stool Aspirate 07/14/23 14:27 Blood Culture - Preliminary Blood NEGATIVE TO DATE 07/14/23 14:22 Blood Culture - Preliminary Blood NEGATIVE TO DATE Cardiac Studies: 2 No Data to Display
--- NOTE | 2023-07-16 13:54 | P.PN_ITS ---
Vitals/I&O/Wt Last Vital Signs Temp 98.2 F 07/16/23 12:20 Pulse 75 07/16/23 12:20 Resp 16 07/16/23 12:20 BP 110/58 07/16/23 12:20 Pulse Ox 94 07/16/23 12:20 O2 Del Method Room Air 07/16/23 12:20 O2 Flow Rate 4 07/14/23 13:48 07/15/23 07/16/23 07/16/23 22:59 06:59 14:59 Intake Total 1361.25 / 3406.25 125 / 3531.25 110 / 110 Output Total 1000 / 1000 300 / 1300 650 / 650 Balance 361.25 / 2406.25 -175 / 2231.25 -540 / -540 Weight last 48 hrs Weight 134 lb 6 oz Weight 128 lb 4 oz Weight 124 lb Weight 124 lb Physical Exam 2 Urinary Catheter Management: Daley: Cath Placed During This Visit: yes Reason for Continuing Indwelling Catheter: Assist Healing of Perineal & Sacral Wounds- Incontinent Patients Urinary Catheter Date of Insertion: 07/14/23 Urinary Catheter Time of Insertion: 15:03 Data 07/16/23 09:56 07/16/23 09:56 Micro: Microbiology 07/14/23 14:45 Urine Culture - Final Urine Catheterized Escherichia coli esbl 07/16/23 04:45 Occult Blood (FIT) - Final Stool - Stool Aspirate 07/14/23 14:27 Blood Culture - Preliminary Blood NEGATIVE TO DATE 07/14/23 14:22 Blood Culture - Preliminary Blood NEGATIVE TO DATE A&P Assessment and plan (1) Stage IV decubitus ulcer: (2) Acute osteomyelitis, pelvis: Plan CT shows evidence of osteomyelitis Sharp excisional debridement of bilateral ischial tuberosity decubitus ulcers and possible wound VAC placement Risks and benefits of the procedure, including but not limited to, bleeding, infection, scar, numbness, pain, damage to surrounding structures, was explained to the patient. She is understanding of the risks and wishes to proceed. Attestations 2 Medical Necessity Statement*: per primary Coding Level of Care Code Acute Code for Chg Fwd Diagnoses Stage IV decubitus ulcer L89.94 Acute osteomyelitis, pelvis M86.159
--- NOTE | 2023-07-16 14:04 | P.PN_ITS ---
Subjective 2 Subjective: No acute events overnight. Patient has remained hemodynamically stable and afebrile. Currently n.p.o. for debridement today. Denies any new complaints. Vitals/I&O/Wt Last Vital Signs Temp 98.2 F 07/16/23 12:20 Pulse 75 07/16/23 12:20 Resp 16 07/16/23 12:20 BP 110/58 07/16/23 12:20 Pulse Ox 94 07/16/23 12:20 O2 Del Method Room Air 07/16/23 12:20 O2 Flow Rate 4 07/14/23 13:48 07/15/23 07/16/23 07/16/23 22:59 06:59 14:59 Intake Total 1361.25 / 3406.25 125 / 3531.25 110 / 110 Output Total 1000 / 1000 300 / 1300 650 / 650 Balance 361.25 / 2406.25 -175 / 2231.25 -540 / -540 Weight last 48 hrs Weight 60.951 kg Weight 58.173 kg Weight 56.245 kg Weight 56.245 kg Physical Exam 2 Narrative: General: No acute distress, AO x3 HEENT: PERRLA, pupils bilaterally equal and reactive Chest: Normal vesicular breath sounds, no added sounds, equal good air entry bilaterally CVS: S1-S2 regular, no murmurs, no tachycardia, no gallops, no rubs Abdomen: Soft, nontender, no organomegaly, bowel sounds present Neuro: No focal deficits, no facial deformity, AO x3, power 5/5 in all limbs Patient does have significant decub ulcers bilaterally Urinary Catheter Management: Daley: Cath Placed During This Visit: yes Reason for Continuing Indwelling Catheter: Assist Healing of Perineal & Sacral Wounds- Incontinent Patients Urinary Catheter Date of Insertion: 07/14/23 Urinary Catheter Time of Insertion: 15:03 Data 07/16/23 09:56 07/16/23 09:56 Micro: Microbiology 07/14/23 14:45 Urine Culture - Final Urine Catheterized Escherichia coli esbl 07/16/23 04:45 Occult Blood (FIT) - Final Stool - Stool Aspirate 07/14/23 14:27 Blood Culture - Preliminary Blood NEGATIVE TO DATE 07/14/23 14:22 Blood Culture - Preliminary Blood NEGATIVE TO DATE A&P Assessment and plan (1) Acute cystitis: As seen on UA on admission. Blood cultures so far negative, urine culture positive for ESBL E. coli sensitive to Zosyn. Respiratory viral panel negative. MRSA swab pending. Daley placed in the ER. For now continue with IV vancomycin and Zosyn. Will de-escalate as per culture results. Qualifiers: Hematuria presence: without hematuria Qualified Code(s): N30.00 - Acute cystitis without hematuria (2) Decubitus ulcer: CT pelvic spine consistent with infected decubitus ulcer extending down to ischial tuberosity with evidence of osteomyelitis bilaterally left more than right. Plan to undergo surgical debridement today. Wound care as per surgical team. Patient would most likely need follow-up cultures and IV antibiotics for overall 6 weeks as per the culture sensitivities. Will plan for PICC line placement if blood cultures from admission remain negative. Qualifiers: Laterality: unspecified laterality Pressure injury location: buttock P ressure injury stage: unspecified pressure injury stage Qualified Code(s): L 89.309 - Pressure ulcer of unspecified buttock, unspecified stage (3) Microcytic anemia: Chronic history with history of blood and iron transfusion in the past. Iron panel consistent with iron deficiency and vitamin B12 deficiency. Continue with IV iron supplementation, vitamin B12 supplementation. As patient is going to the OR today we will plan for 1 unit of blood transfusion. (4) Acute osteomyelitis, pelvis: (5) Deep vein thrombosis, lower left extremity: Appreciated on lower limb Dopplers yesterday. For now holding off on anticoagulation given history of chronic anemia requiring blood and iron transfusion, need for debridement with OR today. Discussed in detail with patient and patient's [id number] Ms. Clarke over the phone. Discussed options for trial of anticoagulation post OR. Also discussed possibility of need for IVC filter given history of chronic anemia. Family is agreeable. Will consult cardiology. No SCDs. For now patient is on room air. Denies any chest pain or difficulty in breathing. Patient is at a high risk of PE. Plan CODE STATUS: Discussed in detail with the patient. Confirmed with [facility]. Patient does not have a DPOA and makes her own decisions though in the past have had occasional episodes of confusions. Full code. Cardiac diet Heparin 5000 every 12 hourly for DVT prophylaxis Protonix for PUD prophylaxis. Care discussed in detail with patient's [id number] Ms. Clarke over the phone. All the questions were answered. Attestations 2 Medical Necessity Statement*: Requires further hospitalization for management of stage IV infected decubitus ulcer with concern for osteomyelitis, left lower limb Doppler with need for IVC filter Diagnoses Acute cystitis N30.00 Hematuria presence: without hematuria Decubitus ulcer L89.309 Laterality: unspecified laterality Pressure injury location: buttock Pressure injury stage: unspecified pressure injury stage Microcytic anemia D50.9 Acute osteomyelitis, pelvis M86.159 Deep vein thrombosis, lower left extremity I82.402
[2023-07-16] MEDS: lidocaine-epi 2% 20 mL INJ INJECTION (15:21)
--- NOTE | 2023-07-16 15:49 | PM.OP ---
Operative Report Date of procedure: July 17, 2023 Pre-op diagnosis: Bilateral stage IV ischial tuberosity decubitus ulcers Unstageable decubitus ulcer of back Post-op diagnosis: Bilateral stage IV ischial tuberosity decubitus ulcers Stage IV decubitus ulcer of back Procedure done: Sharp excisional debridement of stage IV decubitus ulcer of back and stage IV ischial decubitus ulcers bilaterally Bone biopsy Implants: black foam wound VAC Specimens removed/disposition: Eschar for culture Surgeon: Ambrosio Muñiz DO Anesthesia: General Estimated blood loss (mL): 10 Complications: None apparent Brief History: This a very pleasant 72-year-old female with decubitus ulcers of her bilateral ischial tuberosities and back. Sharp excisional debridement was indicated. The risk and benefits were explained and documented. Procedure: Patient was wheeled the operative room placed on the OR table in the prone position after general endotracheal intubation was achieved by the department anesthesia. A time was performed. All present were in agreement. Attention was first brought to the back. There was an eschar measuring 10 x 4 cm. This was outlined with cut mode of Bovie cautery and then shaved off with electrocautery. There was purulence underneath that was irrigated and suctioned. Dissection was performed down to healthy bleeding tissue. Dissection was carried down 7 mm to fascia over the spine. Hemostasis was noted. A wet-to-dry dressing was placed. Attention was then brought to the bilateral ischial tuberosity decubitus ulcers. The left one measured 4.5 x 3 x 2.5 cm. Ulcer went down to bone. On the left side there was obvious osteomyelitis. Rongeur was used to take a bone biopsy. This was sent for culture. Fibrinous tissue was excised with electrocautery down to bleeding tissue. Same procedure was performed on the right side. Right ulcer measured 4 x 3 x 2.5 cm. Fibrinous tissue was removed with electrocautery. Hemostasis was noted after achieving it with electrocautery. A large wound VAC with black sponge was then placed into both ischial tuberosity decubitus ulcers and bridged to the right hip. He was then placed on 125 mmHg suction. Patient tolerated procedure well and was wheeled in the postoperative anesthesia care unit in good condition
--- NOTE | 2023-07-16 16:26 | PC.NURSE ---
Pt back up to room on med surg floor at 1625. This nurse took over care at this time.
[2023-07-16] MEDS: vancomycin 1,000 MG in sodium chloride 0.9% 250 ML 250 MG IV (16:38)
--- NOTE | 2023-07-16 17:02 | P.CONIM_ITS ---
Providers/Reason For Consult 2 Consulting Physician/Specialty*: Aditya Dawson MD/ Interventional Cardiology Reason for Consult*: DVT of left lower extremity Requesting Physician: Dr Oh Attending Physician: Raudel Oh MD Primary Care Provider: Meliton Stevens DO History of Present Illness History of Present Illness Josiah Mohr is a 72 year old female Past medical history of iron deficiency anemia, need for transfusions, was admitted to hospital with weakness. She was found to have UTI. Also requiring or debridement of her decubitus ulcer. She was found to have left lower extremity extensive DVT. Interventional cardiology was consulted for placement of IVC filter. She denies any chest pain. Has back pain. Also has infected decubitus ulcer. Review of Systems 2 General: Reports: 10 or more systems reviewed and unremarkable except in HPI and below Musc: Reports: back pain Medications/Allergies Home Medications Medication Instructions Recorded Confirmed Last Taken Type acetaminophen 325 mg tablet 650 mg PO Q4H PRN Pain 06/17/21 07/14/23 02/23/23 History bisacodyl 10 mg rectal suppository 10 mg NV DAILY PRN Constipation 06/17/21 07/14/23 01/19/23 History furosemide 20 mg tablet (Lasix) 20 mg PO DAILY 06/17/21 07/14/23 07/14/23 History magnesium hydroxide 400 mg/5 mL 30 ml PO DAILY PRN Constipation 06/17/21 07/14/23 02/17/23 History oral suspension (Milk of Magnesia) sodium phosphates 19 gram-7 118 ml NV DAILY PRN Constipation 06/17/21 07/14/23 Unknown History gram/118 mL enema (Fleet Enema) bismuth subsalicylate 262 mg/15 mL See Rx Instructions .Route 03/13/23 07/14/23 02/12/23 History oral suspension (Pepto-Bismol) .COMPLEX PRN Diarrhea ferrous sulfate 325 mg (65 mg See Rx Instructions .Route .COMPLEX 03/13/23 07/14/23 07/14/23 History iron) tablet (Iron (ferrous sulfate)) fluticasone propionate 50 1 spray intranasal DAILY 03/13/23 07/14/23 06/23/23 History mcg/actuation nasal spray,suspension guaifenesin 600 mg tablet, 600 mg PO BID 08/05/2607/14/23 07/14/23 History extended release 12 hr (Mucinex) menthol 5.8 mg lozenges ([place] 5.8 mg mucous membrane Q4H PRN 03/13/23 07/14/23 06/12/23 History Cough Drops) Cough mirtazapine 7.5 mg tablet 7.5 mg PO BEDTIME 03/13/23 07/14/23 07/13/23 History nystatin 100,000 unit/gram topical See Rx Instructions .Route .COMPLEX 03/13/23 07/14/23 07/14/23 History powder paliperidone palmitate 117 mg/0.75 117 mg IM Q30D 03/13/23 07/14/23 06/17/23 History mL intramuscular syringe (Invega Sustenna) pantoprazole 20 mg tablet,delayed 20 mg PO DAILY 03/13/23 07/14/23 07/14/23 History release Dakin's Solution See Rx Instructions .Route .COMPLEX 07/14/23 07/14/23 07/13/23 History Santyl See Rx Instructions .Route .COMPLEX 07/14/23 07/14/23 07/03/23 History acetaminophen 325 mg-DM 10 mg/10 10 ml PO Q6H PRN cough or 07/14/23 07/14/23 Unknown History mL oral liquid (Robitussin congestion Cough-Sore Throat) honey 80 % topical gel (MediHoney See Rx Instructions .Route .COMPLEX 07/14/23 07/14/23 07/09/23 History (honey)) polyvinyl alcohol-povidone 0.5 1 drp ophthalmic (eye) TID PRN Dry 07/14/23 07/14/23 Unknown History %-0.6 % eye drops (Clear Eyes Eyes Natural Tears) Allergies Allergy/AdvReac Type Severity Reaction Status Date / Time No Known Allergies Allergy Verified 03/14/23 17:03 Current Medications Generic Name Dose Route Start Last Admin Trade Name Freq PRN Reason Stop Dose Admin Acetaminophen 650 mg 07/14/23 18:30 07/15/23 12:20 Acetaminophen 325 Mg Tablet PO 650 mg Q6H PRN Administration Mild/Mod Pain Or Temp >/= 101 Cyanocobalamin 1,000 mcg 07/15/23 09:00 07/16/23 08:26 Cyanocobalamin 1,000 Mcg/Ml Sdv IM 1,000 mcg DAILY SUSAN Administration Heparin Sodium (Porcine) 5,000 unit 07/14/23 18:30 07/16/23 04:57 Heparin 5,000 Unit/Ml Inj 1 Ml SUBCUT 5,000 unit Q12H SUSAN Administration Sodium Chloride 1,000 mls @ 75 mls/hr 07/14/23 18:30 07/15/23 23:34 Sodium Chloride 0.9% IV 75 mls/hr .[id number] SUSAN Infusion Piperacillin Sod/Tazobactam 50 mls @ 12.5 mls/hr 07/15/23 01:00 07/16/23 15:20 Sod 3.375 gm/ Sodium Chloride IV Infused Q8H SUSAN Infusion Vancomycin HCl 1,000 mg/ 250 mls @ 250 mls/hr 07/15/23 15:00 07/16/23 16:38 Sodium Chloride IV 250 mls/hr Q24H SUSAN Administration Iron Sucrose 200 mg/ Sodium 110 mls @ 220 mls/hr 07/15/23 09:00 07/16/23 08:59 Chloride IV Infused Q24H SUSAN Infusion Sodium Chloride 1,000 mls @ 30 mls/hr 07/16/23 12:30 07/16/23 12:40 Sodium Chloride 0.9% IV 07/17/23 12:29 30 mls/hr .Q24H SUSAN Administration Pantoprazole Sodium 40 mg 07/14/23 18:30 07/15/23 18:16 Pantoprazole 40 Mg Sdv IVP 40 mg Q24H SUSAN Administration PFSH Acute 2 PFSH: Medical History Schizophrenia Microcytic anemia Social History Smoking and tobacco/nicotine status: never used tobacco/nicotine Alcohol intake: unknown Substance/Drug Use: unknown Housing: Residential Vitals/I&O/Wt Last Vital Signs Temp 97 F L 07/16/23 15:55 Pulse 91 07/16/23 16:10 Resp 16 07/16/23 16:10 BP 128/67 07/16/23 16:10 Pulse Ox 91 07/16/23 16:10 O2 Del Method Room Air 07/16/23 16:10 O2 Flow Rate 6 07/16/23 16:02 07/16/23 07/16/23 07/16/23 06:59 14:59 22:59 Intake Total 125 / 3531.25 110 / 110 50 / 160 Output Total 300 / 1300 650 / 650 505 / 1155 Balance -175 / 2231.25 -540 / -540 -455 / -995 Weight last 48 hrs Weight 134 lb 6 oz Weight 128 lb 4 oz Weight 124 lb Weight 124 lb Physical Exam 2 Narrative: GENERAL: Patient is alert NECK: No jugular vein distension. [] HEENT: No cyanosis. No icterus. No pallor. [] HEART: Regular S1 and S2. No murmur, rub or gallop. [] LUNGS: Clear to auscultate bilaterally. [] CENTRAL NERVOUS SYSTEM: Grossly nonfocal. [] EXTREMITIES: Lower extremities with 1+ edema bilaterally. Urinary Catheter Management: Daley: Cath Placed During This Visit: yes Reason for Continuing Indwelling Catheter: Assist Healing of Perineal & Sacral Wounds- Incontinent Patients Urinary Catheter Date of Insertion: 07/14/23 Urinary Catheter Time of Insertion: 15:03 Data 07/17/23 04:31 07/17/23 04:31 Micro: Microbiology 07/14/23 14:45 Urine Culture - Final Urine Catheterized Escherichia coli esbl 07/16/23 04:45 Occult Blood (FIT) - Final Stool - Stool Aspirate 07/14/23 14:27 Blood Culture - Preliminary Blood NEGATIVE TO DATE 07/14/23 14:22 Blood Culture - Preliminary Blood NEGATIVE TO DATE A&P Assessment and plan (1) Deep vein thrombosis, lower left extremity: (2) Microcytic anemia: (3) Acute osteomyelitis, pelvis: (4) Decubitus ulcer: Qualifiers: Laterality: unspecified laterality Pressure injury location: buttock P ressure injury stage: unspecified pressure injury stage Qualified Code(s): L 89.309 - Pressure ulcer of unspecified buttock, unspecified stage Plan Patient has extensive DVT of left lower extremity. She is requiring blood transfusions. Also has needs for debridement of infected decubitus ulcer. Interventional cardiology has been consulted for IVC filter placement. In this setting it is appropriate to proceed as anticoagulation cannot be started and she is at high risk of developing pulmonary embolism. I had a detailed discussion with the patient. Family has been contacted by primary team and they are aware. Plan for IVC filter placement tomorrow. N.p.o. past midnight. Thank you for involving us with care of this patient. Will continue to follow. Please call with questions. Consult Attestations 2 Medical Necessity Statement: Care expected to cross 2 midnights. Coding Level of Care Code Acute Code for [facility] Fwd Diagnoses Deep vein thrombosis, lower left extremity I82.402 Microcytic anemia D50.9 Acute osteomyelitis, pelvis M86.159 Decubitus ulcer L89.309 Laterality: unspecified laterality Pressure injury location: buttock Pressure injury stage: unspecified pressure injury stage
[2023-07-16] MEDS: sodium chloride 0.9% 1,000 ML 75 ML IV (17:34)
[2023-07-16 19:22] LABS: Bacillus cereus group Not Detected (NOT DETECT); Bacillus subtillis group Not Detected (NOT DETECT); Corynebacterium Not Detected (NOT DETECT); Cutibacterium acnes (P.acnes) Not Detected (NOT DETECT); Enterococcus Not Detected (NOT DETECT); Enterococcus faecalis Not Detected (NOT DETECT); Enterococcus faecium Not Detected (NOT DETECT); Lactobacillus species Not Detected (NOT DETECT); Listeria Not Detected (NOT DETECT); Listeria monocytogenes Not Detected (NOT DETECT); Micrococcus Not Detected (NOT DETECT); Pan Candida Not Detected (NOT DETECT); Pan Gram-Negative Not Detected (NOT DETECT); Staphylococcus epidermidis Not Detected (NOT DETECT); Staphylococcus lugdunensis Not Detected (NOT DETECT); Staphylococcus species Not Detected (NOT DETECT); Streptococcus agalactiae Not Detected (NOT DETECT); Streptococcus anginosus group Not Detected (NOT DETECT); Streptococcus pneumoniae Not Detected (NOT DETECT); Streptococcus pyogenes Not Detected (NOT DETECT); Streptococcus species Not Detected (NOT DETECT)
[2023-07-16] MEDS: sodium chloride 0.9% (100 ml) 100 ML (20:04)
[2023-07-16] MEDS: pantoprazole 40 mg SDV IVP (20:33)
[2023-07-17] VITALS (7 sets, daily range): BP systolic 105–157; BP diastolic 61–89; PULSE 64–114; RESP 15–18; TEMP 36.6–37.1; O2SAT 90–94
[2023-07-17] MEDS: piperacillin-tazobactam 3.375 GM in sodium chloride 0.9% (plus) 50 ML IV ×3 (04:27→19:32)
[2023-07-17 05:08] LABS: Basophils % 0.1 %; Hematocrit 31.1 % (36-47); Lymphocytes # 1.4 10^3/uL (0.8-4.8); Lymphocytes % 14.8 %; Mean Corpuscular HGB Conc 31.5 g/dL (30-55); Mean Corpuscular Hemoglobin 27.5 pg (27-33); Mean Corpuscular Volume 87.4 fl (85-98); Mean Platelet Volume 9.4 fL (7.4-10.4); Monocytes # 0.5 10^3/uL (0.2-0.9); Monocytes % 4.9 %; Neutrophils # 7.69 10^3/uL (1.8-7.7); Neutrophils % 79.1 %; Nucleated Red Blood Cells % 0 %; Platelet Count 445 10^3/cmm (157-399); Red Blood Count 3.56 10^6/uL (3.85-5.65); Red Cell Distribution Width 13.6 % (12.1-15.1); White Blood Count 9.73 10^3/uL (3.29-11.43)
[2023-07-17 05:51] LABS: Alanine Aminotransferase 17 U/L (0-33); Albumin Level 2.3 g/dL (3.5-5.2); Alkaline Phosphatase 68 U/L (35-105); Anion Gap 13.7 (5-19); Aspartate Amino Transferase 18 U/L (0-32); Blood Urea Nitrogen 6 mg/dL (8-23); Calcium 7.6 mg/dL (8.5-10.5); Carbon Dioxide 23 mmol/L (22-29); Chloride 110 mmol/L (98-107); Globulin 2.1 g/dL (1.3-4.6); Glucose 124 mg/dL (65-115); Osmolality Calculated 295 mOsm/kg (285-295); Potassium 3.7 mmol/L (3.5-5.1); Sodium 143 mmol/L (136-145); Total Bilirubin 0.4 mg/dL (0.15-1.2); Total Protein 4.4 g/dL (6.6-8.7)
[2023-07-17] MEDS: heparin 5,000 unit/mL INJ 1 mL 5000 UNIT SUBCUT (05:51)
[2023-07-17] MEDS: sodium chloride 0.9% 1,000 ML 75 ML IV ×2 (05:52→19:32)
--- NOTE | 2023-07-17 06:51 | XACV_ITS ---
Gender: Female : 1950 Exam Type: Invasive Peripheral Vascular Procedure(s): Procedure Description: Peripheral vascular Intervention Procedure Description: PV IVC Filter Placement Exam Priority: Routine Abdominal Interventional Findings INDICATION: DVT/ Anemia/ contraindication to anticoagulation. I VC filter placement: We obtained access in right common femoral vein. 6 Tamaz[place] pigtail catheter was used to perform IVC venogram. Renal veins were identified. We then proceeded with placement of Cook Celect IVC filter under fluoroscopic guidance . At this time, sheath was removed and pressure was held to attain hemostasis.. Conclusions Successful placement of IVC filter. Recommendations Transfer back to floor. Medical therapy per primary team. If in future, anticoagulation can be safely resumed, will consider retrieval. Access Site Site: Right Femoral vein Sheath Size: 6 Fr Hemost... Method: Manual Compression Hemost... Success: Successful Procedure Details Findings Procedure Consent Obtained. Pre-Procedure Time Out. Identified patient by full name and date of as verbalized by the patient/guarantor. Does the consent match the physician's order: Yes. Accurate & Complete Informed Consent: Yes. Inpatient/Outpatient History & Physical on Chart: Yes. If H&P is completed, is and addenduem needed: No; If yes, is the addendum complete: N/A. Visualize and Verify Site with Patient/Guarantor: N/A. Relevant Radiology Images available: Yes. Pre-op teaching completed and patient verbalized understanding. The risks, benefits, and alternatives of sedation and/or procedure were discussed by physician. The patient agrees to continue. Procedure started. Correct patient, site and procedure confirmed by cath team. PERRLA. Strong, equal hand yard pipe grader bilaterally. Lungs clear x 5 lobes. IV Site on Arrival: 18 gauge in the right anticubital. IV Fluids: 0.9% NaCl at KVO. 0 mL infused prior to track repair laborer. Oxygen started at 2liters/min via nasal canula. bilateral groins was prepped with chloroprep then draped in the usual sterile fashion. Physician arrived. Baseline sample Acquired. HR: 98 BPM. Physician scrubbed in. Immediate Pre-Procedure Time Out. Correct Patient: Yes; Correct Procedure: Yes; Correct Site: Yes; Correct Patient Position: Yes; Correct Supplies: Yes; Dried Flammable Prep: Yes; Blood Products Available: N/A;. Lidocaine 1% infiltrated to the right groin. Venous access obtained with a micropuncture set. A 5 danish Angled Pig catheter in over wire. Abdominal venogram performed in AP @ 10 mL/sec for a total of 30 mL x 2. Catheter removed over the standard wire. IVC Filter sheath inserted OTW. IVC filter inserted through the sheath and deployed successfully. IVC Filter Lot# [id number]. IVC deployment system removed. Sheath(s) removed and manual pressure held until hemostasis was achieved. Sterile 4x4 and Op-site applied to the puncture site. No oozing or hematoma noted. Post sheath removal instructions were given and the patient verbalized understanding. A Manual Compression was successful obtaining hemostatsis at the Right Femoral vein insertion site. Post Procedure: Pulses reassessed and unchanged. PERRLA. Strong, equal hand yard pipe grader bilaterally. No VTE prophylaxis required. Total IV fluids: 30 mL. Complications: None. Estimated blood loss: 5mL-10mL. Responsiveness - Normal response to verbal stimuli; alert and oriented, PERRLA. Airway - Unaffected, no intervention required; spontaneous ventilation. Circulation: W/N/L, pulses unchanged. Nausea/Vomiting: No. Medication's Wasted: Other = Fentanyl 100mcg Versed 1 mg. Medication's Wasted: Heparin = 1000 units. Procedure completed. Vital chart was stopped. Patient transferred by bed to [facility]. I, the attending physician, have reviewed and verified all procedure medications. Yes, all medications given per verbal order Report Signatures Finalized by Aditya Dawson MD on 07/27/2023 02:44 PM
[2023-07-17] MEDS: iron sucrose 200 MG in sodium chloride 0.9% (100 ml) 100 ML 220 MG IV (08:40)
[2023-07-17] MEDS: cyanocobalamin 1,000 mcg/mL SDV 1000 MCG IM (08:40)
--- NOTE | 2023-07-17 10:11 | W.PM.OPSUD ---
Surgery/Procedure H&P Update DATE OF PROCEDURE: July 17, 2023 DATE H&P PERFORMED: 07/16/23 H&P UPDATE INFORMATION: I have reviewed H&P completed within last 30 days, I have examined patient prior to procedure and No changes to prior documentation CHANGES TO PREVIOUS DOCUMENTATION: DVT/ Anemia/ contraindication to anticoagulation PRIMARY INDICATION FOR PROCEDURE: DVT/ Anemia/ contraindication to anticoagulation PLANNED PROCEDURE: Operation Date: 07/17/23 1000 Proposed Procedures IVC filter placement- Aditya Dawson MD PATIENT REASSESSED PRIOR TO SEDATION, WITH NO CHANGE NOTED: Yes PHYSICAL EXAM: alert, oriented x 3, clear to auscultation bilaterally and regular rate & rhythm AIRWAY EVAL/ANESTHESIA PLAN: normal airway, ASA IV, Local Anesthesia, Risks, benefits & alternatives of sedation and/or procedure discussed and Patient agrees to continue as planned ADDITIONAL INFORMATION: Moderate sedation
--- NOTE | 2023-07-17 12:29 | P.PN_ITS ---
Subjective 2 Subjective: Patient is stable. Denies chest pain. Underwent successful placement of IVC filter. Vitals/I&O/Wt Last Vital Signs Temp 97.8 F 07/17/23 11:38 Pulse 100 07/17/23 11:38 Resp 16 07/17/23 11:38 BP 132/77 07/17/23 11:38 Pulse Ox 92 07/17/23 11:38 O2 Del Method Room Air 07/17/23 11:38 O2 Flow Rate 1 07/17/23 08:00 07/16/23 07/17/23 07/17/23 22:59 06:59 14:59 Intake Total 2027.5 / 2137.5 1212.5 / 3350.0 400 / 400 Output Total 505 / 1155 900 / 2055 Balance 1522.5 / 982.5 312.5 / 1295.0 400 / 400 Weight last 48 hrs Weight 134 lb 6 oz Weight 134 lb 6 oz Physical Exam 2 Narrative: GENERAL: Patient is alert NECK: No jugular vein distension. [] HEENT: No cyanosis. No icterus. No pallor. [] HEART: Regular S1 and S2. No murmur, rub or gallop. [] LUNGS: Clear to auscultate bilaterally. [] CENTRAL NERVOUS SYSTEM: Grossly nonfocal. [] EXTREMITIES: Lower extremities with 1+ edema bilaterally. Urinary Catheter Management: Daley: Cath Placed During This Visit: yes Reason for Continuing Indwelling Catheter: Other Urinary Catheter Date of Insertion: 07/14/23 Urinary Catheter Time of Insertion: 15:03 Data 07/17/23 04:31 07/17/23 04:31 Micro: Microbiology 07/14/23 14:22 Blood Culture - Preliminary Blood 07/14/23 14:45 Urine Culture - Final Urine Catheterized Escherichia coli esbl A&P Assessment and plan (1) Deep vein thrombosis, lower left extremity: (2) Microcytic anemia: (3) Acute osteomyelitis, pelvis: (4) Decubitus ulcer: Qualifiers: Laterality: unspecified laterality Pressure injury location: buttock P ressure injury stage: unspecified pressure injury stage Qualified Code(s): L 89.309 - Pressure ulcer of unspecified buttock, unspecified stage Plan Patient underwent successful placement of IVC filter. Sheath removed and hemostasis achieved. Thank you for involving us with care of this patient. Please call with questions. Attestations 2 Medical Necessity Statement*: Care expected to cross 2 midnights. Coding Level of Care Code Acute Code for [facility] Fwd Diagnoses Deep vein thrombosis, lower left extremity I82.402 Microcytic anemia D50.9 Acute osteomyelitis, pelvis M86.159 Decubitus ulcer L89.309 Laterality: unspecified laterality Pressure injury location: buttock Pressure injury stage: unspecified pressure injury stage
--- NOTE | 2023-07-17 12:30 | PM.PROC ---
Procedure Note: Date of procedure: 07/17/23 Pre-procedure diagnosis: DVT/anemia/contraindication to anticoagulation Post-procedure diagnosis: same Procedure: IVC filter placement: We obtained access in right common femoral vein.? 6 [place] pigtail catheter was used to perform IVC venogram. Renal veins were identified.?We then proceeded with placement of Cook Celect IVC filter under fluoroscopic guidance below the renal veins. At this time, sheath was removed and pressure was held to attain hemostasis. Op report anesthesia: Local Performing Provider: Aditya Dawson Estimated blood loss (mL): 5 Complications: None Condition: stable Disposition: floor Coding Level of Care Code Acute Code for [facility] Fwd
--- NOTE | 2023-07-17 13:16 | P.PN_ITS ---
Subjective 2 Subjective: Patient is stable. Denies chest pain. Underwent successful placement of IVC filter. Vitals/I&O/Wt Last Vital Signs Temp 97.8 F 07/17/23 11:38 Pulse 100 07/17/23 11:38 Resp 16 07/17/23 11:38 BP 132/77 07/17/23 11:38 Pulse Ox 92 07/17/23 11:38 O2 Del Method Room Air 07/17/23 11:38 O2 Flow Rate 1 07/17/23 08:00 07/16/23 07/17/23 07/17/23 22:59 06:59 14:59 Intake Total 2027.5 / 2137.5 1212.5 / 3350.0 640 / 640 Output Total 505 / 1155 900 / 2055 Balance 1522.5 / 982.5 312.5 / 1295.0 640 / 640 Weight last 48 hrs Weight 60.951 kg Weight 60.951 kg Physical Exam 2 Narrative: General: No acute distress, AO x3 HEENT: PERRLA, pupils bilaterally equal and reactive Chest: Normal vesicular breath sounds, no added sounds, equal good air entry bilaterally CVS: S1-S2 regular, no murmurs, no tachycardia, no gallops, no rubs Abdomen: Soft, nontender, no organomegaly, bowel sounds present Neuro: No focal deficits, no facial deformity, AO x3, power 5/5 in all limbs Patient does have significant decub ulcers bilaterally Urinary Catheter Management: Daley: Cath Placed During This Visit: yes Reason for Continuing Indwelling Catheter: Other Urinary Catheter Date of Insertion: 07/14/23 Urinary Catheter Time of Insertion: 15:03 Data 07/17/23 04:31 07/17/23 04:31 Micro: Microbiology 07/14/23 14:22 Blood Culture - Preliminary Blood 07/14/23 14:45 Urine Culture - Final Urine Catheterized Escherichia coli esbl A&P Assessment and plan (1) Acute cystitis: As seen on UA on admission. Blood cultures so far negative, urine culture positive for ESBL E. coli sensitive to Zosyn. Respiratory viral panel negative. MRSA swab pending. Daley placed in the ER. For now continue with IV vancomycin and Zosyn. Qualifiers: Hematuria presence: without hematuria Qualified Code(s): N30.00 - Acute cystitis without hematuria (2) Gram-positive bacteremia: Blood cultures from admission today being positive for gram-positive rods. Repeat blood cultures. For now we will await identification. Continue with current antibiotic including vancomycin and Zosyn. (3) Decubitus ulcer: CT pelvic spine consistent with infected decubitus ulcer extending down to ischial tuberosity with evidence of osteomyelitis bilaterally left more than right. Post debridement 07/16. Follow-up follow-up cultures. Continue with wound care and wound VAC as per surgical team. Patient would most likely need follow-up cultures and IV antibiotics for overall 6 weeks as per the culture sensitivities. Will plan for PICC line placement once repeat blood cultures are negative. Qualifiers: Laterality: unspecified laterality Pressure injury location: buttock P ressure injury stage: unspecified pressure injury stage Qualified Code(s): L 89.309 - Pressure ulcer of unspecified buttock, unspecified stage (4) Acute osteomyelitis, pelvis: (5) Deep vein thrombosis, lower left extremity: Appreciated on lower limb Dopplers yesterday. Post debridement on 07/16. Patient has history of anemia requiring blood and iron transfusion in the past. Postop monitor blood transfusion on this admission. As hemoglobin has remained stable will plan to start on full dose Lovenox 1 mg/kg body weight every 12 hourly following the evening today. Cardiology consulted for IVC filter today. Plan for placement later in the day today. (6) Microcytic anemia: Chronic history with history of blood and iron transfusion in the past. Iron panel consistent with iron deficiency and vitamin B12 deficiency. Continue with IV iron supplementation, vitamin B12 supplementation. Monitor hemoglobin daily. Post 1 unit of blood transfusion. (7) Status post excisional debridement: On 07/16. Continue with wound care and wound VAC as per surgical team. (8) S/P insertion of IVC (inferior vena caval) filter: Plan CODE STATUS: Discussed in detail with the patient. Confirmed with [facility]. Patient does not have a DPOA and makes her own decisions though in the past have had occasional episodes of confusions. Full code. Cardiac diet Heparin 5000 every 12 hourly for DVT prophylaxis Protonix for PUD prophylaxis. Care discussed in detail with patient's [id number] Ms. Clarke over the phone. All the questions were answered. Attestations 2 Medical Necessity Statement*: Requires further hospitalization for management of gram-positive bacteremia, decubitus pressure ulcer with osteomyelitis post debridement, wound VAC, left leg DVT post IVC filter Diagnoses Acute cystitis N30.00 Hematuria presence: without hematuria Gram-positive bacteremia R78.81 Decubitus ulcer L89.309 Laterality: unspecified laterality Pressure injury location: buttock Pressure injury stage: unspecified pressure injury stage Acute osteomyelitis, pelvis M86.159 Deep vein thrombosis, lower left extremity I82.402 Microcytic anemia D50.9 Status post excisional debridement Z98.890 S/P insertion of IVC (inferior vena caval) filter Z95.828
[2023-07-17 14:25] LABS: Vancomycin Trough 5.8 ug/mL (10-15)
[2023-07-17] MEDS: vancomycin 1,000 MG in sodium chloride 0.9% 250 ML 250 MG IV (14:42)
[2023-07-17] MEDS: enoxaparin 60 mg/0.6 mL Syringe SUBCUT (17:04)
--- NOTE | 2023-07-17 18:22 | PC.NURSE ---
This nurse removed microfoam tape and gauze from midline upper back wound. Wound was cleaned with sterile saline and sterile gauze. Wet to dry dressing was applied, covered with an ABD pad and secured with tape. Pt tolerated well.
[2023-07-17] MEDS: pantoprazole 40 mg SDV IVP (19:33)
--- NOTE | 2023-07-17 20:42 | PC.NURSE ---
Addendum entered by Sarah Harris RN 07/17/23 23:49: At approximately 2200, redness to patient's right leg no longer present. Original Note: Incision to right groin WNL. Right leg red and hot to touch upon bedside report. Day shift nurse states that is was not like that at approximately [address] Vines notified.
--- NOTE | 2023-07-17 21:54 | PC.NURSE ---
Patient refusing heel protectors. Patient's heels being floated with pillow.
[2023-07-18] VITALS (7 sets, daily range): BP systolic 109–139; BP diastolic 44–75; PULSE 74–85; RESP 15–19; TEMP 36.4–37.1; O2SAT 90–96
[2023-07-18] MEDS: piperacillin-tazobactam 3.375 GM in sodium chloride 0.9% (plus) 50 ML IV ×3 (03:02→19:19)
[2023-07-18 05:46] LABS: Alanine Aminotransferase 18 U/L (0-33); Albumin Level 2.3 g/dL (3.5-5.2); Alkaline Phosphatase 74 U/L (35-105); Anion Gap 10.4 (5-19); Aspartate Amino Transferase 23 U/L (0-32); Blood Urea Nitrogen 7 mg/dL (8-23); Calcium 7.8 mg/dL (8.5-10.5); Carbon Dioxide 24 mmol/L (22-29); Chloride 111 mmol/L (98-107); Glucose 112 mg/dL (65-115); Osmolality Calculated 293 mOsm/kg (285-295); Potassium 3.4 mmol/L (3.5-5.1); Sodium 142 mmol/L (136-145); Total Bilirubin 0.3 mg/dL (0.15-1.2); Total Protein 4.3 g/dL (6.6-8.7)
[2023-07-18] MEDS: enoxaparin 60 mg/0.6 mL Syringe SUBCUT ×2 (08:03→19:19)
[2023-07-18] MEDS: iron sucrose 200 MG in sodium chloride 0.9% (100 ml) 100 ML 220 MG IV (08:04)
[2023-07-18] MEDS: sodium chloride 0.9% 1,000 ML 75 ML IV (08:07)
[2023-07-18] MEDS: cyanocobalamin 1,000 mcg/mL SDV 1000 MCG IM (08:10)
[2023-07-18] MEDS: vancomycin 1,000 MG in sodium chloride 0.9% 250 ML 250 MG IV (08:39)
[2023-07-18 08:46] LABS: Hematocrit 29.3 % (36-47); Mean Corpuscular HGB Conc 31.1 g/dL (30-55); Mean Corpuscular Hemoglobin 27.9 pg (27-33); Mean Corpuscular Volume 89.9 fl (85-98); Mean Platelet Volume 8.9 fL (7.4-10.4); Platelet Count 426 10^3/cmm (157-399); Red Blood Count 3.26 10^6/uL (3.85-5.65); Red Cell Distribution Width 14.1 % (12.1-15.1); White Blood Count 9.04 10^3/uL (3.29-11.43)
[2023-07-18 09:39] LABS: Slide Review Slide Review Perform
[2023-07-18 09:40] LABS: Absolute Eosinophils 0.1 10^3/cmm (0.0-0.7); Absolute Segmented Neutrophil 7.3 10/cmm (1.6-7.1); Band Neutrophils Absolute 0.1 10^3/cmm (0.0-1.2); Eosinophils 1 %; Lymphocytes 11 %; Monocytes Absolute 0.4 10^3/cmm (0.1-0.6); Segmented Neutrophils 81 %; Total Cells Counted 100 (0-100)
[2023-07-18 09:41] LABS: Absolute Neutrophil 7.4 10^3/cmm (1.4-6.5); Platelet Estimate Increased (Normal)
--- NOTE | 2023-07-18 12:46 | XR_ITS ---
WS: [id number] Exam: XR chest 1V portable [id number] Date/Time of Exam: 07/18/2023 1:12 PM Reason For Exam: Post PICC insertion Comparison 07/14/2023. Mild cardiac enlargement with pulmonary vascular congestion. LEFT pleural effusion has developed. Pos sible subpulmonic right-sided pleural effusion. Findings would suggest CHF. A right-sided PICC line h as been placed. The first radiograph obtained at 2:22 p.m. on 07/18/2023 shows the tip of the PICC li ne looped in the lower one third of the SVC. The tip is directed back cephalad. The second image obta ined on the same day at 2:27 p.m. shows the line has now been straightened and appears to end near th e cavoatrial junction. An IVC filter is noted in the upper abdomen. The chest is rotated. No pneumoth orax. Bony structures are intact as visualized. IMPRESSION: 1. Cardiac enlargement with pulmonary vascular congestion and left-sided pleural effusion. There may be right-sided subpulmonic fluid. Findings suggest CHF. Fluid overload might be a consideration. 2. Final images demonstrate a right-sided PICC line in place ending at or slightly below the cavoatri al junction.
--- NOTE | 2023-07-18 12:54 | PM.PN ---
Subjective Subjective: No acute vents overnight. Patient has remained hemodynamically stable and afebrile. Tolerating wound VAC and dressing changes well. Underwent IVC filter yesterday. Hemoglobin has remained stable. She is happy that she could meet her family yesterday. Denies any new complaints. Vitals/I&O/Wt Last Vital Signs Temp 98.6 F 07/18/23 12:00 Pulse 84 07/18/23 12:00 Resp 15 07/18/23 12:00 BP 139/62 07/18/23 12:00 Pulse Ox 92 07/18/23 12:00 O2 Del Method Room Air 07/18/23 12:00 O2 Flow Rate 1 07/17/23 08:00 07/17/23 07/18/23 07/18/23 22:59 06:59 14:59 Intake Total 1559.733 / 2199.733 220 / 2419.733 1543.75 / 1543.75 Output Total 1000 / 1000 Balance 1559.733 / 2199.733 -780 / 7926.934 9528.75 / 1543.75 Weight last 48 hrs Weight 60.951 kg Weight 60.951 kg Physical Exam Narrative: General: No acute distress, AO x3 HEENT: PERRLA, pupils bilaterally equal and reactive Chest: Normal vesicular breath sounds, no added sounds, equal good air entry bilaterally CVS: S1-S2 regular, no murmurs, no tachycardia, no gallops, no rubs Abdomen: Soft, nontender, no organomegaly, bowel sounds present Neuro: No focal deficits, no facial deformity, AO x3, power 5/5 in all limbs Patient does have significant decub ulcers bilaterally Urinary Catheter Management: Daley: Cath Placed During This Visit: yes Reason for Continuing Indwelling Catheter: Assist Healing of Perineal & Sacral Wounds- Incontinent Patients Urinary Catheter Date of Insertion: 07/14/23 Urinary Catheter Time of Insertion: 15:03 Data 07/18/23 08:31 07/18/23 04:54 Micro: Microbiology 07/14/23 14:22 Blood Culture - Preliminary Blood Corynebacterium species 07/16/23 15:31 Gram Stain - Final Back Wound Culture - Preliminary Gram Negative Rods 07/16/23 16:00 Gram Stain - Final Back 07/17/23 14:56 Blood Culture - Preliminary Blood SPECIMEN COLLECTED 07/17/23 14:51 Blood Culture - Preliminary Blood SPECIMEN COLLECTED A&P Assessment and plan (1) Acute cystitis: As seen on UA on admission. Blood cultures so far negative, urine culture positive for ESBL E. coli sensitive to Zosyn. Respiratory viral panel negative. MRSA swab pending. Daley placed in the ER. For now continue with IV vancomycin and Zosyn. Qualifiers: Hematuria presence: without hematuria Qualified Code(s): N30.00 - Acute cystitis without hematuria (2) Gram-positive bacteremia: Blood cultures from admission today being positive for gram-positive rods. Repeat blood cultures. For now we will await identification. Continue with current antibiotic including vancomycin and Zosyn. (3) Decubitus ulcer: CT pelvic spine consistent with infected decubitus ulcer extending down to ischial tuberosity with evidence of osteomyelitis bilaterally left more than right. Post debridement 07/16. Follow-up follow-up cultures. Continue with wound care and wound VAC as per surgical team. Patient would most likely need follow-up cultures and IV antibiotics for overall 6 weeks as per the culture sensitivities. Will plan for PICC line placement once repeat blood cultures are negative. Qualifiers: Laterality: unspecified laterality Pressure injury location: buttock Pressure injury stage: unspecified pressure injury stage Qualified Code(s): L89.309 - Pressure ulcer of unspecified buttock, unspecified stage (4) Acute osteomyelitis, pelvis: (5) Deep vein thrombosis, lower left extremity: Appreciated on lower limb Dopplers yesterday. Post debridement on 07/16. Patient has history of anemia requiring blood and iron transfusion in the past. Postop monitor blood transfusion on this admission. As hemoglobin has remained stable will plan to start on full dose Lovenox 1 mg/kg body weight every 12 hourly following the evening today. Cardiology consulted for IVC filter today. Plan for placement later in the day today. (6) Microcytic anemia: Chronic history with history of blood and iron transfusion in the past. Iron panel consistent with iron deficiency and vitamin B12 deficiency. Continue with IV iron supplementation, vitamin B12 supplementation. Monitor hemoglobin daily. Post 1 unit of blood transfusion. (7) Status post excisional debridement: On 07/16. Continue with wound care and wound VAC as per surgical team. (8) S/P insertion of IVC (inferior vena caval) filter: Plan CODE STATUS: Discussed in detail with the patient. Confirmed with [facility]. Patient does not have a DPOA and makes her own decisions though in the past have had occasional episodes of confusions. Full code. Cardiac diet Heparin 5000 every 12 hourly for DVT prophylaxis Protonix for PUD prophylaxis. Care discussed in detail with patient's [id number]-fix Ms. Clarke over the phone. All the questions were answered. Plan for the day: Follow-up OR and blood cultures. Chronic bacterium 1 bottle positive from admission most likely contaminant. Urine cultures growing ESBL E. coli. Wound cultures are now growing gram-negative rods. Plan for PICC line placement today. Plan for IV or ertapenem 1 g daily for next 6 weeks. Wound VAC to be continued at detention. Patient to follow-up with surgical team and ID as an outpatient. IVC filter placed yesterday. Tolerating Lovenox well for now. Will transition to oral Eliquis on discharge. Plan for repeat hemoglobin in 1 week. Stop IV fluids. Continue with IV iron supplementation. Last dose 07/19. Attestations Medical Necessity Statement*: Requires further hospitalization for management of osteomyelitis, deep decubitus infected wound, left leg DVT post IVC filter placement and debridement while safe discharge planning and outpatient prolonged antibiotics are set up Diagnoses Acute cystitis N30.00 Hematuria presence: without hematuria Gram-positive bacteremia R78.81 Decubitus ulcer L89.309 Laterality: unspecified laterality Pressure injury location: buttock Pressure injury stage: unspecified pressure injury stage Acute osteomyelitis, pelvis M86.159 Deep vein thrombosis, lower left extremity I82.402 Microcytic anemia D50.9 Status post excisional debridement Z98.890 S/P insertion of IVC (inferior vena caval) filter Z95.828
[2023-07-18 13:15] LABS: Methicillin-Resist S.aureu PCR NOT DETECTED (NOT DETECTED)
--- NOTE | 2023-07-18 13:26 | P.PN_ITS ---
Subjective 2 Subjective: Patient is stable. Denies chest pain or groin access site pain Vitals/I&O/Wt Last Vital Signs Temp 98.6 F 07/18/23 12:00 Pulse 84 07/18/23 12:00 Resp 15 07/18/23 12:00 BP 139/62 07/18/23 12:00 Pulse Ox 92 07/18/23 12:00 O2 Del Method Room Air 07/18/23 12:00 O2 Flow Rate 1 07/17/23 08:00 07/17/23 07/18/23 07/18/23 22:59 06:59 14:59 Intake Total 1559.733 / 2199.733 220 / 2419.733 1543.75 / 1543.75 Output Total 1000 / 1000 Balance 1559.733 / 2199.733 -780 / 2139.653 8097.75 / 1543.75 Weight last 48 hrs Weight 134 lb 6 oz Weight 134 lb 6 oz Physical Exam 2 Narrative: GENERAL: Patient is alert NECK: No jugular vein distension. [] HEENT: No cyanosis. No icterus. No pallor. [] HEART: Regular S1 and S2. No murmur, rub or gallop. [] LUNGS: Clear to auscultate bilaterally. [] CENTRAL NERVOUS SYSTEM: Grossly nonfocal. [] EXTREMITIES: Lower extremities with 1+ edema bilaterally. Urinary Catheter Management: Daley: Cath Placed During This Visit: yes Reason for Continuing Indwelling Catheter: Assist Healing of Perineal & Sacral Wounds- Incontinent Patients Urinary Catheter Date of Insertion: 07/14/23 Urinary Catheter Time of Insertion: 15:03 Data 07/19/23 06:23 07/19/23 06:23 Micro: Microbiology 07/14/23 14:22 Blood Culture - Preliminary Blood Corynebacterium species 07/16/23 15:31 Gram Stain - Final Back Wound Culture - Preliminary Gram Negative Rods 07/16/23 16:00 Gram Stain - Final Back 07/17/23 14:56 Blood Culture - Preliminary Blood SPECIMEN COLLECTED 07/17/23 14:51 Blood Culture - Preliminary Blood SPECIMEN COLLECTED A&P Assessment and plan (1) Deep vein thrombosis, lower left extremity: (2) Microcytic anemia: (3) Acute osteomyelitis, pelvis: (4) Decubitus ulcer: Qualifiers: Laterality: unspecified laterality Pressure injury location: buttock P ressure injury stage: unspecified pressure injury stage Qualified Code(s): L 89.309 - Pressure ulcer of unspecified buttock, unspecified stage Plan Patient had successful placement of IVC filter. If she tolerates anticoagulation longer-term, can consider retrieval of IVC filter. Thank you for involving us with care of this patient. Please call with questions. Attestations 2 Medical Necessity Statement*: Care expected to cross 2 midnights. Coding Level of Care Code Acute Code for [facility] Diagnoses Deep vein thrombosis, lower left extremity I82.402 Microcytic anemia D50.9 Acute osteomyelitis, pelvis M86.159 Decubitus ulcer L89.309 Laterality: unspecified laterality Pressure injury location: buttock Pressure injury stage: unspecified pressure injury stage
--- NOTE | 2023-07-18 13:49 | PC.NURSE ---
Single lumen PICC placed to right basilic vein. Referred to vascular access nurse for PICC placement for IV antibiotics x 6 weeks. Risks and benefits and informed consent obtained from patient. Right arm assessed with right basilic vein measuring 4.5 mm, straight, and apparent best choice for placement. Using sterile technique and MST, right basilic vein accessed x 1 stick. Mid-arm circumference measured 10 cm from right AC 25 cm. Trimmed cath 38 cm with 2 cm external length noted. CXR showed tip originally curled up slightly at end of cath. Cath retracted 2 cm as recommended by radiologist with tip in distal SVC, in good position for use. Line secured with stat-lock. Insertion site covered with Biopatch and TSM. Report given to bedside nurseDonte.
[2023-07-18] MEDS: pantoprazole 40 mg SDV IVP (19:20)
[2023-07-19] VITALS (9 sets, daily range): BP systolic 123–170; BP diastolic 67–103; PULSE 70–120; RESP 16–20; TEMP 36.4–37.1; O2SAT 91–94
[2023-07-19] MEDS: vancomycin 1,000 MG in sodium chloride 0.9% 250 ML 250 MG IV ×2 (01:40→20:29)
[2023-07-19] MEDS: piperacillin-tazobactam 3.375 GM in sodium chloride 0.9% (plus) 50 ML IV ×3 (02:49→22:30)
[2023-07-19 06:57] LABS: Basophils % 0.5 %; Eosinophils # 0.1 10^3/uL (0.0-0.8); Eosinophils % 1.1 %; Hematocrit 30.7 % (36-47); Lymphocytes # 1.9 10^3/uL (0.8-4.8); Lymphocytes % 23.6 %; Mean Corpuscular HGB Conc 30.9 g/dL (30-55); Mean Corpuscular Hemoglobin 27.5 pg (27-33); Mean Corpuscular Volume 88.7 fl (85-98); Monocytes # 0.6 10^3/uL (0.2-0.9); Monocytes % 7.4 %; Neutrophils % 62.4 %; Nucleated Red Blood Cells % 0 %; Platelet Count 420 10^3/cmm (157-399); Red Blood Count 3.46 10^6/uL (3.85-5.65); Red Cell Distribution Width 14.2 % (12.1-15.1); White Blood Count 8.01 10^3/uL (3.29-11.43)
[2023-07-19 07:21] LABS: Alanine Aminotransferase 18 U/L (0-33); Albumin Level 2.3 g/dL (3.5-5.2); Alkaline Phosphatase 87 U/L (35-105); Anion Gap 10.8 (5-19); Aspartate Amino Transferase 26 U/L (0-32); Blood Urea Nitrogen 3 mg/dL (8-23); Calcium 7.9 mg/dL (8.5-10.5); Carbon Dioxide 28 mmol/L (22-29); Chloride 108 mmol/L (98-107); Globulin 2.6 g/dL (1.3-4.6); Glucose 98 mg/dL (65-115); Osmolality Calculated 295 mOsm/kg (285-295); Sodium 144 mmol/L (136-145); Total Bilirubin 0.4 mg/dL (0.15-1.2); Total Protein 4.9 g/dL (6.6-8.7)
[2023-07-19 08:35] LABS: Potassium 2.8 mmol/L (3.5-5.1)
--- NOTE | 2023-07-19 10:31 | PM.DCS ---
Discharge Providers Date of Admission: 07/14/23 16:23 Date of Discharge: July 19, 2023 Attending Provider at Admission: Bisi Elizalde MD Attending Provider at Discharge: Raudel Oh MD Consults: Surgery: Dr. Muñiz Cardiology: Dr. Dawson Primary Care Provider: Meliton Stevens DO Diagnoses at Discharge Discharge Diagnosis (1) Acute cystitis: Status: Acute Qualifiers: Hematuria presence: without hematuria Qualified Code(s): N30.00 - Acute cystitis without hematuria (2) Gram-positive bacteremia: Status: Acute (3) Decubitus ulcer: Status: Acute Qualifiers: Laterality: unspecified laterality Pressure injury location: buttock Pressure injury stage: unspecified pressure injury stage Qualified Code(s): L89.309 - Pressure ulcer of unspecified buttock, unspecified stage (4) Acute osteomyelitis, pelvis: Status: Acute (5) Deep vein thrombosis, lower left extremity: Status: Acute (6) Microcytic anemia: Status: Acute (7) Status post excisional debridement: Status: Acute (8) S/P insertion of IVC (inferior vena caval) filter: Status: Acute Reason for Visit Reason for Visit: sepsis Hospital Course Hospital Course Josiah Mohr is a 72 year old female residential resident with past medical history of chronic decubitus wounds following up with wound care at the residential, iron deficiency anemia with history of blood and iron transfusion was sent into the ER from the residential today because of increasing weakness and an episode of fever. In the ER patient was diagnosed of having UTI and medicine team was consulted. On examination patient is awake and alert sitting comfortably in bed, Daley placed in the ER. Patient was admitted to the hospital for further evaluation and management of possible UTI. During hospitalization patient was found to have significant decub ulcer which as per the residential she has been getting treatment with wound care at the residential for last few years. CT pelvis was concerning for osteomyelitis. She was also found to have left lower limb DVT. On admission patient was found to have anemia. Patient carries a history of iron deficiency anemia requiring multiple blood transfusions and iron transfusions in the past. Goals of care were discussed in detail with patient and her family. They are agreeable with medical treatment. Surgery was consulted and she underwent debridement of the wound after which wound care was done as per surgical team and wound VAC was placed. Urine culture came back positive for ESBL E. coli, wound culture positive for Proteus mirabilis and coagulase negative staph, her blood cultures from admission did come back positive out of 4 bottles for Corynebacterium which is thought to be contaminant. Repeat blood cultures have been negative.. MRSA swab is negative. Cardiology was consulted for possibility of IVC filter placement given history of chronic anemia. He underwent successful IVC filter placement without complications. During hospitalization she required 1 unit of blood transfusion. She was transitioned over to anticoagulation with Lovenox which she tolerated well without any drop in hemoglobin. She has been discharged in hemodynamically stable condition with advised to take IV or ertapenem once daily for next 6 weeks. She is to follow-up with surgery as an outpatient within the next 2 weeks, ID on set appointment. While being on antibiotics she needs to have weekly CBC, CMP and CRP. Physical Exam Narrative: General: No acute distress, AO x3 HEENT: PERRLA, pupils bilaterally equal and reactive Chest: Normal vesicular breath sounds, no added sounds, equal good air entry bilaterally CVS: S1-S2 regular, no murmurs, no tachycardia, no gallops, no rubs Abdomen: Soft, nontender, no organomegaly, bowel sounds present Neuro: No focal deficits, no facial deformity, AO x3, power 5/5 in all limbs Patient does have significant decub ulcers bilaterally, surgically bandaged with wound VAC Urinary Catheter Management: Daley: Cath Placed During This Visit: yes Reason for Continuing Indwelling Catheter: Assist Healing of Perineal & Sacral Wounds- Incontinent Patients Urinary Catheter Date of Insertion: 07/14/23 Urinary Catheter Time of Insertion: 15:03 Discharge Data Studies Completed and Pending Completed Studies During Hospitalization Category Date Time Status CT pelvis w con* [id number] Routine Cat Scan 07/15/23 08:27 Completed CXRP [XR chest 1V portable [id number]] Routine Exams 07/18/23 12:46 Completed XR chest 1V portable [id number] Stat Exams 07/14/23 14:08 [place] [id number] Routine Ultrasound 07/15/23 10:34 Completed Pending at discharge Category Date Time Status [employer] request for service Routine Exams 07/17/23 06:51 Taken Anaerobic Culture Routine Lab 07/16/23 15:31 Results Blood Culture Stat Lab 07/14/23 14:27 Results Blood Culture Stat Lab 07/17/23 14:56 Results Tissue Culture and Gram Stain Routine Lab 07/16/23 16:00 Results Vancomycin Trough Timed Lab 07/20/23 14:00 Ordered Wound Culture and Gram Stain Routine Lab 07/16/23 15:31 Results Laboratory Results WBC 8.01 10^3/uL (3.29-11.43) 07/19/23 06:23 Corrected WBC Cancelled 07/18/23 04:54 RBC 3.46 10^6/uL (3.85-5.65) L 07/19/23 06:23 Hgb 9.50 g/dL (11.27-16.99) L 07/19/23 06:23 Hct 30.7 % (36-47) L 07/19/23 06:23 MCV 88.7 fl (85-98) 07/19/23 06:23 MCH 27.5 pg (27-33) 07/19/23 06:23 MCHC 30.9 g/dL (30-55) 07/19/23 06:23 RDW 14.2 % (12.1-15.1) 07/19/23 06:23 Plt Count 420 10^3/cmm (157-399) H 07/19/23 06:23 MPV 9.0 fL (7.4-10.4) 07/19/23 06:23 Gran % Cancelled 07/18/23 04:54 Neut % (Auto) 62.4 % 07/19/23 06:23 Lymph % (Auto) 23.6 % 07/19/23 06:23 Ellis % (Auto) 7.4 % 07/19/23 06:23 Eos % (Auto) 1.1 % 07/19/23 06:23 Baso % (Auto) 0.5 % 07/19/23 06:23 Reticulocyte % (Auto) 1.3 % (0.5-2.0) 07/15/23 04:17 Neut # (Auto) 5.00 10^3/uL (1.8-7.7) 07/19/23 06:23 Lymph # (Auto) 1.9 10^3/uL (0.8-4.8) 07/19/23 06:23 Ellis # (Auto) 0.6 10^3/uL (0.2-0.9) 07/19/23 06:23 Eos # (Auto) 0.1 10^3/uL (0.0-0.8) 07/19/23 06:23 Baso # (Auto) 0.0 10^3/uL (0.0-0.1) 07/19/23 06:23 Absolute Gran (auto) Cancelled 07/18/23 04:54 Nucleated RBC % (auto) 0 % 07/19/23 06:23 Total Counted 100 (0-100) 07/18/23 08:31 Atypical Lymphs % 0.0 % (0-5) 07/18/23 08:31 Absolute Neutrophils 7.4 10^3/cmm (1.4-6.5) H 07/18/23 08:31 Segmented Neutrophils 81 % 07/18/23 08:31 Abs Segm Neuts (Man) 7.3 10/cmm (1.6-7.1) H 07/18/23 08:31 Band Neutrophils 1.0 % 07/18/23 08:31 Abs Band Neuts (Man) 0.1 10^3/cmm (0.0-1.2) 07/18/23 08:31 Absolute Lymphocytes 1.0 10^3/cmm (1.2-3.4) L 07/18/23 08:31 Lymphocytes (Manual) 11 % 07/18/23 08:31 Monocytes (Manual) 4.0 % 07/18/23 08:31 Absolute Monocytes 0.4 10^3/cmm (0.1-0.6) 07/18/23 08:31 Eosinophils (Manual) 1 % 07/18/23 08:31 Absolute Eosinophils 0.1 10^3/cmm (0.0-0.7) 07/18/23 08:31 Basophils (Manual) 0.0 % 07/18/23 08:31 Absolute Basophils 0.0 10^3/cmm (0.0-0.2) 07/18/23 08:31 Metamyelocytes 1.0 % 07/18/23 08:31 Myelocytes 1.0 % 07/18/23 08:31 Nucleated RBCs # 0.0 /100WBC 07/19/23 06:23 Platelet Estimate Increased (Normal) H 07/18/23 08:31 PT 16.40 SECONDS (12.1-14.9) H 07/14/23 15:10 INR 1.27 (0.8-1.2) H 07/14/23 15:10 Sodium 144 mmol/L (136-145) 07/19/23 06:23 Potassium 2.8 mmol/L (3.5-5.1) L* 07/19/23 06:23 Chloride 108 mmol/L (98-107) H 07/19/23 06:23 Carbon Dioxide 28 mmol/L (22-29) 07/19/23 06:23 Anion Gap 10.8 (5-19) 07/19/23 06:23 BUN 3 mg/dL (8-23) L 07/19/23 06:23 Creatinine 0.3 mg/dL (0.5-0.9) L 07/19/23 06:23 GFR Calculation Not Reportable 07/19/23 06:23 Glucose 98 mg/dL (65-115) 07/19/23 06:23 Estimat Average Glucose 126 07/15/23 04:17 Hemoglobin A1c 6.0 % (4.0-6.0) 07/15/23 04:17 Calculated Osmolality 295 mOsm/kg (285-295) 07/19/23 06:23 Lactic Acid 1.3 mmol/L (0.5-2.2) 07/14/23 15:10 Calcium 7.9 mg/dL (8.5-10.5) L 07/19/23 06:23 Phosphorus 2.5 mg/dL (2.5-4.5) 07/15/23 04:17 Magnesium 2.2 mg/dL (1.7-2.3) 07/15/23 04:17 Iron 11 ug/dL (37-145) L 07/14/23 15:10 TIBC 112 mcg/dl 07/14/23 15:10 % Saturation 9.8 % (20-50) L 07/14/23 15:10 Unsat Iron Binding 101 ug/dL (112-347) L 07/14/23 15:10 Total Bilirubin 0.4 mg/dL (0.15-1.2) 07/19/23 06:23 AST 26 U/L (0-32) 07/19/23 06:23 ALT 18 U/L (0-33) 07/19/23 06:23 Alkaline Phosphatase 87 U/L (35-105) 07/19/23 06:23 Total Protein 4.9 g/dL (6.6-8.7) L 07/19/23 06:23 Albumin 2.3 g/dL (3.5-5.2) L 07/19/23 06:23 Globulin 2.6 g/dL (1.3-4.6) 07/19/23 06:23 Triglycerides 89 mg/dL (0-150) 07/15/23 04:17 Cholesterol 95 mg/dL (0-200) 07/15/23 04:17 LDL Cholesterol, Calc 55 mg/dL (50-129) 07/15/23 04:17 HDL Cholesterol 22 mg/dL (60-100) L 07/15/23 04:17 LDL/HDL Ratio 2.50 RATIO (0.00-3.22) 07/15/23 04:17 Cholesterol/HDL Ratio 4.32 mg/dL (0.0-4.40) 07/15/23 04:17 Vitamin B12 214 pg/mL (232-1245) L 07/14/23 15:10 Folate 7.0 ng/mL (4.8-37.3) 07/15/23 04:17 Procalcitonin 1.12 ng/mL (0-0.5) H 07/14/23 15:10 TSH 2.04 uIU/mL (0.27-4.20) 07/14/23 15:10 Urine Color Yellow (Yellow) 07/14/23 14:45 Urine Appearance Hazy (CLEAR) A 07/14/23 14:45 Urine pH 6 (5-7) 07/14/23 14:45 Ur Specific [place] 1.020 (1.005-1.030) 07/14/23 14:45 Urine Protein Trace (Negative) 07/14/23 14:45 Urine Glucose (UA) Norm (Normal) 07/14/23 14:45 Urine Ketones Negative (Negative) 07/14/23 14:45 Urine Blood 2+ (Negative) H 07/14/23 14:45 Urine Nitrate Positive (Negative) H 07/14/23 14:45 Urine Bilirubin 1+ (Negative) H 07/14/23 14:45 Urine Urobilinogen 4 mg/dL (Negative) H 07/14/23 14:45 Ur Leukocyte Esterase 1+ (Negative) H 07/14/23 14:45 Urine RBC 5-10 /hpf (0-2) H 07/14/23 14:45 Urine WBC 15-25 /hpf (0-5) H 07/14/23 14:45 Ur Squamous Epith Cells 0-4 /hpf (0-5) H 07/14/23 14:45 Amorphous Sediment Not Reportable 07/14/23 14:45 Urine Bacteria 4+ /hpf (NONE) H 07/14/23 14:45 Urine Mucus 2+ /hpf 07/14/23 14:45 Nasal Influ A H1 2009 PCR Not detected (NOT DETECT) 07/15/23 12:14 Vancomycin Trough 5.8 ug/mL (10-15) L 07/17/23 13:53 Adenovirus (PCR) Not detected (NOT DETECT) 07/15/23 12:14 C. pneumoniae DNA (PCR) Not detected (NOT DETECT) 07/15/23 12:14 Coronavirus 229E (PCR) Not detected (NOT DETECT) 07/15/23 12:14 Human Metapneumovir PCR Not detected (NOT DETECT) 07/15/23 12:14 Influenza A (H1) PCR Not detected (NOT DETECT) 07/15/23 12:14 Influenza A (H3) PCR Not detected (NOT DETECT) 07/15/23 12:14 Influenza Type A Ag negative (Negative) 07/14/23 15:10 Influenza Type A (PCR) Not detected (NOT DETECT) 07/15/23 12:14 Influenza Type B Ag negative (Negative) 07/14/23 15:10 Influenza Type B (PCR) Not detected (NOT DETECT) 07/15/23 12:14 M. pneumoniae (PCR) Not detected (NOT DETECT) 07/15/23 12:14 Parainfluenza 1 (PCR) Not detected (NOT DETECT) 07/15/23 12:14 Parainfluenza 2 (PCR) Not detected (NOT DETECT) 07/15/23 12:14 Parainfluenza 3 (PCR) Not detected (NOT DETECT) 07/15/23 12:14 Parainfluenza 4 (PCR) Not detected (NOT DETECT) 07/15/23 12:14 RSV Type A (PCR) Not detected (NOT DETECT) 07/15/23 12:14 RSV Type B (PCR) Not detected (NOT DETECT) 07/15/23 12:14 Entero/Rhino (PCR) Not detected (NOT DETECT) 07/15/23 12:14 SARS-CoV-2 (PCR) Not detected (NOT DETECT) 07/15/23 12:14 SARS-CoV-2 Ag (Rapid) negative (Negative) 07/14/23 15:10 MRSA (PCR) Not detected (NOT DETECTED) 07/16/23 06:00 Blood Type O Negative 07/16/23 09:56 Rho(D) Type Negative 07/16/23 09:56 Antibody Screen Negative 07/16/23 09:56 Crossmatch See Detail 07/16/23 09:56 Vitals Last Vital Signs Temp 97.6 F 07/19/23 08:00 Pulse 73 07/19/23 10:10 Resp 18 07/19/23 08:00 BP 128/71 07/19/23 08:00 Pulse Ox 91 07/19/23 10:10 O2 Del Method Room Air 07/19/23 10:10 O2 Flow Rate 1 07/17/23 08:00 Discharge Plan Discharge Patient Disposition: Xfer SNF Condition: Stable Prescriptions: New cyanocobalamin (vitamin B-12) 1,000 mcg capsule 1,000 mcg PO DAILY Qty: 30 0RF ferrous gluconate 324 mg (37.5 mg iron) tablet 324 mg PO DAILY Qty: 30 0RF Eliquis DVT-PE Treat 30D Start 5 mg (74 tabs) tablets,dose pack See Rx Instructions .ROUTE .COMPLEX Qty: 74 0RF Rx Instructions: orally per package directions Continued acetaminophen 325 mg Tablet 650 mg PO Q4H PRN (Reason: Pain) magnesium hydroxide [Milk of Magnesia] 400 mg/5 mL Suspension 30 ml PO DAILY PRN (Reason: Constipation) bisacodyl 10 mg Suppository 10 mg LA DAILY PRN (Reason: Constipation) Fleet Enema 19-7 gram/118 mL Enema 118 ml LA DAILY PRN (Reason: Constipation) furosemide [Lasix] 20 mg Tablet 20 mg PO DAILY pantoprazole 20 mg tablet,delayed release (DR/EC) 20 mg PO DAILY ferrous sulfate [Iron (ferrous sulfate)] 325 mg (65 mg iron) Tablet See Rx Instructions .ROUTE .COMPLEX Rx Instructions: Take 325 mg orally twice weekly on Friday and Friday bismuth subsalicylate [Pepto-Bismol] 262 mg/15 mL Suspension See Rx Instructions .ROUTE .COMPLEX PRN (Reason: Diarrhea) Rx Instructions: Take 30 ml orally as needed every 1 hour ;do not exceed 8 doses in a 24 hour period nystatin 100,000 unit/gram Powder See Rx Instructions .ROUTE .COMPLEX Rx Instructions: 1 applic topically twice daily: cleanse under both breasts with NS, pat dry. Apply nystatin under both breasts. fluticasone propionate 50 mcg/actuation spray,suspension 1 spray INTRANASAL DAILY mirtazapine 7.5 mg Tablet 7.5 mg PO BEDTIME [place] Cough Drops 5.8 mg Lozenge 5.8 mg MUCOUS MEMBRANE Q4H PRN (Reason: Cough) Invega Sustenna 117 mg/0.75 mL syringe 117 mg IM Q30D Rx Instructions: on the guaifenesin [Mucinex] 600 mg Tablet Extended Release 12hr 600 mg PO BID Clear Eyes Natural Tears 0.5-0.6 % Drops 1 drp OPHTHALMIC (EYE) TID PRN (Reason: Dry Eyes) Dakin's Solution 0.125 % See Rx Instructions .ROUTE .COMPLEX Rx Instructions: Apply topically every shift mid spine: cleanse with NS and gauze, apply dakins damp gauze to wound bed and cover with dry gauze and secure with tape Robitussin Cough-Sore Throat 325-10 mg/10 mL Liquid 10 ml PO Q6H PRN (Reason: cough or congestion) Santyl See Rx Instructions .ROUTE .COMPLEX Rx Instructions: 1 application topically as directed every shift; Mid spine: Cleanse with NS and gauze. Apply Santyl to wound bed only and cover with bordered foam gauze. Discontinued MediHoney (honey) 80 % Gel See Rx Instructions .ROUTE .COMPLEX Rx Instructions: 1 applic topically as directed every shift; mid spine: cleanse with NS and gauze. Apply medi-honey to wound bed only and cover with bordered foam gauze. Discharge Orders: Discharge Order (Routine); Ordered 07/19/23 Ordered By: Raudel Oh Referrals: [facility] [Provider Group] - 08/05/23 (We have notified your physician's clinic of the need for a follow-up appointment to be scheduled. If you have not heard from them within the next 2 business days, please call them directly. ) [facility] [Outside] Jimmy Palacios MD [Physician] - 7-10 days (We have notified your physician's clinic of the need for a follow-up appointment to be scheduled. If you have not heard from them within the next 2 business days, please call them directly. ) Meliton Stevens DO [Primary Care Provider] - Discharge Diet: Regular Discharge Activity: Resume usual activity and Increase activity as tolerated Patient Instructions: Ertapenem (By injection), Opioid Safety Activity Restrictions/Additional Instructions: Wound VAC to be changed Friday, Friday and Friday. Dressings to be changed twice daily wet-to-dry Patient will be on ertapenem 1 g daily IV for next 6 weeks. Patient to follow-up with surgery within next 1 week. Patient to follow-up with ID clinic on August 05. While being on antibiotics you should have weekly CBC, CMP and CRP. Discharge Attestations Time Spent in Discharge Care*: greater than 30 min Specific Discharge Activities: educating patient, discussing with pcp/other providers, discussing with employment case manager/social workers/dc planners, documenting/other paperwork and evaluating patient/reviewing data Quality Metrics Clinical Quality Measures [ Venous Thromboembolism { Contraindication to Overlap Therapy: None; Overlap threrpy ordered; VTE Discharge Education: Education about anticoagulant therapy/Care Notes given, Education about treatment options/disease process, Medication side effects education, INR/lab monitoring education as applicable, Follow-up arranged, Other; Deep Vein Thrombosis/Pulmonary Embolism Present on Admission: Yes;}] Coding Level of Care Code 62809 Total time (in minutes) for Discharge: 60 Diagnoses Acute cystitis N30.00 Hematuria presence: without hematuria Gram-positive bacteremia R78.81 Decubitus ulcer L89.309 Laterality: unspecified laterality Pressure injury location: buttock Pressure injury stage: unspecified pressure injury stage Acute osteomyelitis, pelvis M86.159 Deep vein thrombosis, lower left extremity I82.402 Microcytic anemia D50.9 Status post excisional debridement Z98.890 S/P insertion of IVC (inferior vena caval) filter Z95.828
[2023-07-19] MEDS: cyanocobalamin 1,000 mcg/mL SDV 1000 MCG IM (10:34)
[2023-07-19] MEDS: enoxaparin 60 mg/0.6 mL Syringe SUBCUT ×2 (10:34→20:24)
[2023-07-19] MEDS: iron sucrose 200 MG in sodium chloride 0.9% (100 ml) 100 ML 220 MG IV (10:35)
[2023-07-19] MEDS: potassium chloride ER 20 mEq Tablet 80 MEQ PO (10:37)
--- NOTE | 2023-07-19 10:45 | PC.NURSE ---
This nurse talked with Isa Johnson at [facility] to notify them of patient discharging today. Isa is going over orders and this nurse will set up transportation.
--- NOTE | 2023-07-19 11:08 | PC.NURSE ---
Medicaid transport set up. Trip ID # [id number]
--- NOTE | 2023-07-19 11:46 | PC.NURSE ---
Wound vac removed and wet to dry dressing applied to get patient to [facility] for new wound vac. Isa with [facility] notified.
[2023-07-19] MEDS: pantoprazole 40 mg SDV IVP (20:24)
== END 2023-07-19 23:29 | disposition skilled nursing facility (03) | DRG 464 ==
LOC: ER 16:27 → MEDSURG 17:27
PROVIDERS: Internal Medicine; Surgery; Admitting Provider Student in an Organized Health Care Education/Training Program; Emergency Provider Emergency Medicine; PCP Internal Medicine; Visit Provider Student in an Organized Health Care Education/Training Program
PROC: 0JB70ZZ Excision of Back Subcutaneous Tissue and Fascia, Open Approach (ICD-10-PCS; principal; 2023-07-16 12:30)
PROC: 06H03DZ Insertion of Intraluminal Device into Inferior Vena Cava, Percutaneous Approach (ICD-10-PCS; CPT 37191; principal; 2023-07-17 10:00)
DX: M86.18 Other acute osteomyelitis, other site (principal); I82.412 Acute embolism and thrombosis of left femoral vein; N39.0 Urinary tract infection, site not specified; Z16.12 Extended spectrum beta lactamase (ESBL) resistance; I82.432 Acute embolism and thrombosis of left popliteal vein; B96.4 Proteus (mirabilis) (morganii) as the cause of diseases classified elsewhere; B95.8 Unspecified staphylococcus as the cause of diseases classified elsewhere; B96.20 Unspecified Escherichia coli [E. coli] as the cause of diseases classified elsewhere; D50.9 Iron deficiency anemia, unspecified; F20.9 Schizophrenia, unspecified
CPT/HCPCS: 36010; 36415; 36430; 36573; 37191; 51702; 71045; 72193; 80053; 80061; 80202; 81001; 82274; 82607; 82746; 83036; 83540; 83550; 83605; 83735; 84100; 84145; 84443; 85007; 85025; 85045; 85610; 86850; 86900; 86920; 87040; 87070; 87075; 87077; 87086; 87150; 87176; 87186; 87205; 87426; 87486; 87581; 87633; 87641; 87804; 93005; 93970; 94664; 96365; 96367; 96372; 96375; 99285; C1769; C1880; C1887; C1894; C9113; J0131; J1100; J1644; J1650; J1756; J2250; J2371; J2405; J2543; J2704; J2710; J3010; J3370; J3420; J3490; J7030; J7050; P9016; Q9967

== ENCOUNTER 2023-08-18 15:24 | Inpatient (IN) | payer MEDICAID, SELFPAY ==
[2023-08-18] VITALS (52 sets, daily range): BP systolic 91–154; BP diastolic 61–100; PULSE 91–122; RESP 3–32; TEMP 34.9–36.3; O2SAT 96–100
--- NOTE | 2023-08-18 15:28 | XRR_ITS ---
PROCEDURE INFORMATION: Exam: XR Chest Exam date and time: 08/18/2023 3:54 PM Age: 73 years old Clinical indication: Cough and dyspnea; Patient HX: Post code tube placement; Additional info: Dyspnea/cough ett placement og placement TECHNIQUE: Imaging protocol: Radiologic exam of the chest. Views: 1 view. COMPARISON: CR XR chest 1V portable [id number] 07/18/2023 2:18 PM FINDINGS: Lungs: No focal consolidation or evidence of airspace disease. Pleural spaces: No evidence of pneumothorax or pleural effusion Heart/Mediastinum: Endotracheal tube in place with tip approximately 2 cm from the toshia. Right-sided central venous catheter in place with tip in the region of the right atrium. Consider retracting approximately 5 cm to achieve positioning in the SVC. Enteric tube in place with tortuous course. There is suspected moderate-large hiatal hernia with a portion of the gastric body above the diaphragm. The tip of the catheter projects over the mid upper abdomen. Side hole appears to be positioned within the herniated portion of the stomach. Cardiac silhouette is within normal limits. Bones/joints: No evidence of acute osseous abnormality. XR/XR chest 1V portable [id number] IMPRESSION: 1. Endotracheal tube in place with tip approximately 2 cm from the toshia. 2. Right-sided central venous catheter in place with tip in the region of the right atrium. Consider retracting approximately 5 cm to achieve positioning in the SVC. 3. Enteric tube in place with tortuous course, suspected to be related to a moderate-large hiatal hernia with a portion of the gastric body above the diaphragm. Tip of the catheter projects over the mid upper abdomen. If further detail regarding the position of the catheter is clinically warranted, consider CT.
--- NOTE | 2023-08-18 15:28 | ECG_ITS ---
[facility] Test Date: 2023-08-18 Pat Name: Josiah Mohr Department: Room: Gender: Female Rehabilitation Therapy Aide: : 1950 Requested By: Jeramie Urban Order Number: [id number] Janeth MD: Tina Carmichael M.D. Measurements Intervals [place] Rate: 108 P: 59 NE: 144 QRS: 11 QRSD: 69 T: 106 QT: 328 QTc: 440 Interpretive Statements SINUS TACHYCARDIA POSSIBLE RIGHT VENTRICULAR CONDUCTION DELAY [RSR (QR) IN V1/V2] ABNORMAL QRS-T ANGLE [QRS-T AXIS DIFFERENCE > 60] Compared to ECG 07/14/2023 14:22:51 No significant changes Electronically Signed On 08-19-2023 10:08:23 [employer] by Tina Carmichael M.D. [id number]
--- NOTE | 2023-08-18 15:28 | CTR_ITS ---
PROCEDURE INFORMATION: Exam: CT Head Without Contrast Exam date and time: 08/18/2023 5:09 PM Age: 73 years old Clinical indication: Other: Post code TECHNIQUE: Imaging protocol: Computed tomography of the head without contrast. Radiation optimization: All CT scans at this facility use at least one of these dose optimization techniques: automated exposure control; mA and/or kV adjustment per patient size (includes targeted exams where dose is matched to clinical indication); or iterative reconstruction. COMPARISON: No relevant prior studies available. RADIATION DOSE METRICS: Total DLP (mGy-cm): 866 FINDINGS: Brain: No evidence of intra-axial or extra-axial hemorrhage. No mass effect or midline shift. Hutchison-white differentiation is maintained. Basilar cisterns are patent. Cerebral ventricles: No hydrocephalus. Paranasal sinuses: The visualized paranasal sinuses are well aerated. Mastoid air cells: The visualized mastoids and middle ears are clear. Bones/joints: The visualized calvarium and bony orbits are intact. Soft tissues: No gross soft tissue abnormality. CT/CT head wo con* [id number] IMPRESSION: 1. No acute intracranial abnormality.
--- NOTE | 2023-08-18 15:30 | CTR_ITS ---
PROCEDURE INFORMATION: Exam: CTA Chest With Contrast Exam date and time: 08/18/2023 5:14 PM Age: 73 years old Clinical indication: Other: Choked on peanut butter; Additional info: Resp arrest - HX dvt, no anti-coagulants TECHNIQUE: Imaging protocol: Computed tomographic angiography of the chest with contrast. Exam focused on the arteries. 3D rendering (Not supervised by radiologist): MIP and/or 3D reconstructed images were created by the technologist. Radiation optimization: All CT scans at this facility use at least one of these dose optimization techniques: automated exposure control; mA and/or kV adjustment per patient size (includes targeted exams where dose is matched to clinical indication); or iterative reconstruction. Contrast material: OMNI 350; Contrast volume: 100 ml; Contrast route: INTRAVENOUS (IV); COMPARISON: CR XR chest 1V portable [id number] 08/18/2023 3:54 PM RADIATION DOSE METRICS: Total DLP (mGy-cm): 286 FINDINGS: Tubes, catheters and devices: ET tube and right upper extremity PICC are in position. There is an NG/OG tube, with its tip within hiatal hernia. Pulmonary arteries: Normal. No pulmonary emboli. Aorta: Descending thoracic aorta is moderately tortuous. Aorta and coronary arteries are moderately calcified. Origins of right subclavian, right brachiocephalic, left common carotid, and left subclavian arteries are mildly calcified. Left vertebral artery has a separate origin off of aortic arch proximal to origin of left subclavian artery. Other vessels: Visualized abdominal aorta and origins of celiac and superior mesenteric arteries are moderately calcified. IVC filter is in position. Lungs: Mild, irregular reticular opacities at bilateral apices suggest scars. Mild, crescentic air-space and linear and reticular opacities at dependent portions of bilateral lower lobes likely reflect compressive and subsegmental atelectasis. There is a < 6 mm, calcified granuloma at apicoposterior left upper lobe. Pleural spaces: There are mild, low density (Hounsfield units 11-12), bilateral pleural effusions. Heart: Unremarkable. No cardiomegaly. No pericardial effusion. Lymph nodes: Unremarkable. No enlarged lymph nodes. Diaphragm: There is a large, sliding hiatal hernia. Breasts: Left upper inner breast contains a benign-appearing, solid calcification. Upper abdomen: Visualized portions of liver, pancreas, and bilateral adrenals are normal. < 9 mm, oval, enhancing nodule with similar density as spleen medial to anterior spleen reflects incidental splenule. Bones/joints: There is mild left lower thoracic curvature or scoliosis. Superior endplates of T9-12 vertebrae are moderately and mildly depressed, suggesting chronic, compression fractures. There is a chronic, healing fracture of manubrium, with mild anterior angulation of distal portion. There are acute fractures of left anterior at least 1st-7th and right posterior 10th ribs. In addition, chronic, healing fractures of several, right anterior and lateral upper-mid ribs are present. [place], lytic lesion with striated, sclerotic areas within T5 vertebral body suggests benign hemangioma. Degenerative disc and facet disease of lower cervical spine and degenerative disc disease of several levels of thoracic and upper lumbar spine are present. 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 Soft tissues: Mild stranding within subcutaneous fat at left > right anterior mid-lower chest wall suggests nonspecific soft tissue inflammation. CT/CT angio chest PE protcl [id number] IMPRESSION: 1. No acute pulmonary emboli. Atherosclerosis and coronary artery disease. 2. Mild, low density, bilateral pleural effusions. 3. Large, sliding hiatal hernia. NG/OG tube tip within hiatal hernia. 4. Chronic, compression fractures of superior endplates of T9-12 vertebrae. Chronic, healing fracture of manubrium. Acute fractures of left anterior least 1st-7th and right posterior 10th ribs. Chronic, healing fractures of several, right anterior and lateral upright fimbriae ribs.
--- NOTE | 2023-08-18 15:32 | W.ED.GENADLT ---
HPI - General Adult General: Chief complaint: Cardiac Arrest/CPR Stated complaint: post code Time Seen by Provider: 08/18/23 15:28 Source: EMS Mode of arrival: EMS History of Present Illness: 73-year-old female history of stage IV decubitus ulcer with osteomyelitis of the pelvis with a wound VAC in place she was observed sitting she was trying to eat a peanut butter and jelly sandwich and suddenly collapsed CPR was initiated by staff immediately after she collapsed she is a full code. EMS was called they arrived 8 minutes after she had collapsed and began ACLS protocol she received as many as 6 epis and continuous CPR over the course of the next 2024 minutes had planned on ceasing resuscitative efforts and called for medical control evidently once they ceased they noticed spontaneous motion of the heart and upon reevaluating the patient they found that she had achieved ROSC. She was intubated with a 9 oh ET tube given push dose IV pressors and transported to the emergency room on arrival here she is reacting to the ET tube but is not having any purposeful movements. Initial EKG done at the scene did not show any acute ST elevation Onset (ago): minute(s) PFSH ED PFSH: Medical History Deep vein thrombosis, lower left extremity Stage IV decubitus ulcer Acute osteomyelitis, pelvis Schizophrenia Microcytic anemia Surgical History S/P insertion of IVC (inferior vena caval) filter Status post excisional debridement Social History Smoking and tobacco/nicotine status: never used tobacco/nicotine Alcohol intake: unknown Substance/Drug Use: unknown Housing: Half-Way Physical Exam HENMT: COMMON NORMALS: normocephalic, atraumatic and hearing grossly normal bilaterally HEAD & SCALP: normocephalic and atraumatic Resp: COMMON NORMALS: normal respiratory effort, No retractions, No use of accessory muscles and clear to auscultation bilaterally AUSCULTATION: clear to auscultation bilaterally Cardio: COMMON NORMALS: regular rate, regular rhythm and No murmurs present (Cardio) RATE: regular rate RHYTHM: regular rhythm GI: COMMON NORMALS: Soft to palpation and No hepatosplenomegaly present AUSCULTATION: Yes normoactive bowel sounds PALPATION: Yes Soft to palpation, No Tenderness to palpation present (GI), No Guarding due to palpation present (GI) and Yes No hepatosplenomegaly present Extremity: COMMON NORMALS: normal to inspection, capillary refill normal, no clubbing, cyanosis or edema, no calf tenderness and no pedal edema Skin: COMMON NORMALS: no rashes or lesions noted GENERAL SKIN EXAM: no rashes or lesions noted Course Vital Signs: Vital signs: Vital Signs Pulse Rate 112 H 08/18/23 15:25 Respiratory Rate 17 08/18/23 17:29 Blood Pressure 91/61 08/18/23 15:25 Pulse Oximetry 99 08/18/23 15:25 Oxygen Delivery Me thod Mechanical Ventil ation 08/18/23 15:25 Fraction of Inspir ed Oxygen 35 08/18/23 17:29 MDM - General Adult Medical Decision Making Postcode patient is requiring Levophed to maintain blood pressure. She is also requiring fentanyl and Versed for sedation. She has been being treated for osteomyelitis of the pelvis from the sacral decubitus with wound VAC on. She had a DVT at her last hospitalization IVC filter was placed. CTA of the chest is pending as well as CT of the head patient is still full code will admit to the ICU discussed Dr. orders written Medical Records I reviewed the patient's medical records. Lab Data I reviewed the patient's lab results. 08/18/23 15:44 08/18/23 15:44 Radiology Impressions Chest X-Ray 08/18/23 15:28 IMPRESSION: 1. Endotracheal tube in place with tip approximately 2 cm from the toshia. 2. Right-sided central venous catheter in place with tip in the region of the right atrium. Consider retracting approximately 5 cm to achieve positioning in the SVC. 3. Enteric tube in place with tortuous course, suspected to be related to a moderate-large hiatal hernia with a portion of the gastric body above the diaphragm. Tip of the catheter projects over the mid upper abdomen. If further detail regarding the position of the catheter is clinically warranted, consider CT. ADDENDUM: 08/18/23 0056 The findings were verbally communicated by telephone with JERAMIE Gracia at 4:23 PM INFERTILITY MEDICAL ASSISTANT on 08/18/2023. The findings were acknowledged and understood. Head CT 08/18/23 15: IMPRESSION: 1. No acute intracranial abnormality. Laboratory Results WBC 19.79 10^3/uL (3.29-11.43) H 08/18/23 15:44 RBC 3.57 10^6/uL (3.85-5.65) L 08/18/23 15:44 Hgb 10.20 g/dL (11.27-16.99) L 08/18/23 15:44 Hct 33.4 % (36-47) L 08/18/23 15:44 MCV 93.6 fl (85-98) 08/18/23 15:44 MCH 28.6 pg (27-33) 08/18/23 15:44 MCHC 30.5 g/dL (30-55) 08/18/23 15:44 RDW 15.5 % (12.1-15.1) H 08/18/23 15:44 Plt Count 486 10^3/cmm (157-399) H 08/18/23 15:44 MPV 9.2 fL (7.4-10.4) 08/18/23 15:44 Lymph % (Auto) Not Reportable 08/18/23 15:44 [place] % (Auto) Not Reportable 08/18/23 15:44 Lymph # (Auto) Not Reportable 08/18/23 15:44 [place] # (Auto) Not Reportable 08/18/23 15:44 Total Counted 100 (0-100) 08/18/23 15:44 Atypical Lymphs % 0.0 % (0-5) 08/18/23 15:44 Absolute Neutrophils 14.1 10^3/cmm (1.4-6.5) H 08/18/23 15:44 Segmented Neutrophils 63 % 08/18/23 15:44 Abs Segm Neuts (Man) 12.5 10/cmm (1.6-7.1) H 08/18/23 15:44 Band Neutrophils 8.0 % 08/18/23 15:44 Abs Band Neuts (Man) 1.6 10^3/cmm (0.0-1.2) H 08/18/23 15:44 Absolute Lymphocytes 4.9 10^3/cmm (1.2-3.4) H 08/18/23 15:44 Lymphocytes (Manual) 25 % 08/18/23:44 Monocytes (Manual) 1.0 % 08/18/23: Absolute Monocytes 0.2 10^3/cmm (0.1-0.6) 08/18/23: Eosinophils (Manual) 0 % 08/18/23: Absolute Eosinophils 0.0 10^3/cmm (0.0-0.7) 08/18/23: Basophils (Manual) 0.0 % 08/18/23: Absolute Basophils 0.0 10^3/cmm (0.0-0.2) 08/18/23:44 Metamyelocytes 2.0 % 08/18/23: Myelocytes 1.0 % 08/18/23 Platelet Estimate Increased (Normal) H 08/18/23 Giant Platelets Trace 08/18/23: Anisocytosis Trace 08/18/23: Specimen Type Arterial 08/18/23 Sample Site Brachial, left 08/18/23 ABG pH 7.32 (7.35-7.45) L 08/18/23 ABG pCO2 34.4 mmHg (35-45) L 08/18/23 ABG pO2 414.0 mmHg (80.0-100.0) H 08/18/23 ABG PO2/FiO2 Ratio 0 08/18/23 ABG HCO3 17.5 mmol/L (22-26) L 08/18/23 ABG O2 Saturation > 100.0 08/18/23 ABG Base Excess -7.9 mmol/L (-2.0-2.0) L 08/18/23 Derian Test Pos 08/18/23 A-a O2 Gradient 32.5 mmHg (5-10) H 08/18/23 Hematocrit 31.4 % (37-47) L 08/18/23 Hgb O2 Saturation 99.3 % (95-100) 08/18/23: Carboxyhemoglobin 1.0 %THgb (0.4-20.1) 08/18/23 Methemoglobin 0.5 % (0.4-1.5) 08/18/23 15:28 Total Hemoglobin 10.2 g/dL (12-16) L 08/18/23 15:28 Sodium 138.0 mmol/L (131-143) 08/18/23 15:28 Potassium 3.7 mmol/L (3.5-5.0) 08/18/23 15:28 Glucose 273.0 mg/dL (70-115) H 08/18/23 15:28 Ionized Calcium 1.2 mmol/L (1.1-1.4) 08/18/23 15:28 O2 Delivery Device Vent 08/18/23 15: FiO2 100.0 % 08/18/23 15: Tidal Volume 0.50 08/18/23 15: PEEP 5.0 cmH20 08/18/23: Cargo Operations Agent ID Cak 08/18/23 15:28 Sodium 138 mmol/L (136-145) 08/18/23 15:44 Potassium 4.3 mmol/L (3.5-5.1) 08/18/23 15:44 Chloride 101 mmol/L (98-107) 08/18/23 15:44 Carbon Dioxide 18 mmol/L (22-29) L 08/18/23 15:44 Anion Gap 23.3 (5-19) H 08/18/23 15:44 BUN 12 mg/dL (8-23) 08/18/23 15:44 Creatinine 0.6 mg/dL (0.5-0.9) 08/18/23 15:44 GFR Calculation Not Reportable 08/18/23 15:44 Glucose 263 mg/dL (65-115) H 08/18/23 15:44 Calculated Osmolality 295 mOsm/kg (285-295) 08/18/23 15:44 Calcium 8.5 mg/dL (8.5-10.5) 08/18/23 15:44 Total Bilirubin 0.2 mg/dL (0.15-1.2) 08/18/23 15:44 AST 292 U/L (0-32) H 08/18/23 15:44 ALT 164 U/L (0-33) H 08/18/23 15:44 Alkaline Phosphatase 498 U/L (35-105) H 08/18/23 15:44 Troponin T Baseline 56 ng/L (0-10) H 08/18/23 15:44 Total Protein 5.7 g/dL (6.6-8.7) L 08/18/23 15:44 Albumin 3.0 g/dL (3.5-5.2) L 08/18/23 15:44 Globulin 2.7 g/dL (1.3-4.6) 08/18/23 15:44 All radiology interpretation(s) finalized by discharge Discharge Plan Discharge Patient Disposition: Admitted As Inpatient Clinical Impression: Cardiac arrest, Microcytic anemia, Stage IV decubitus ulcer, Deep vein thrombosis, lower left extremity, S/P insertion of IVC (inferior vena caval) filter, Acute osteomyelitis, pelvis Condition: Stable Prescriptions: No Action acetaminophen 325 mg Tablet 650 mg PO Q4H PRN (Reason: Pain) magnesium hydroxide [Milk of Magnesia] 400 mg/5 mL Suspension 30 ml PO DAILY PRN (Reason: Constipation) bisacodyl 10 mg Suppository 10 mg MD DAILY PRN (Reason: Constipation) Fleet Enema 19-7 gram/118 mL Enema 118 ml MD DAILY PRN (Reason: Constipation) furosemide [Lasix] 20 mg Tablet 20 mg PO DAILY pantoprazole 20 mg tablet,delayed release (DR/EC) 20 mg PO DAILY ferrous sulfate [Iron (ferrous sulfate)] 325 mg (65 mg iron) Tablet See Rx Instructions .ROUTE .COMPLEX Rx Instructions: Take 325 mg orally twice weekly on Friday and Friday bismuth subsalicylate [Pepto-Bismol] 262 mg/15 mL Suspension See Rx Instructions .ROUTE .COMPLEX PRN (Reason: Diarrhea) Rx Instructions: Take 30 ml orally as needed every 1 hour ;do not exceed 8 doses in a 24 hour period nystatin 100,000 unit/gram Powder See Rx Instructions .ROUTE .COMPLEX Rx Instructions: 1 applic topically twice daily: cleanse under both breasts with NS, pat dry. Apply nystatin under both breasts. fluticasone propionate 50 mcg/actuation spray,suspension 1 spray INTRANASAL DAILY mirtazapine 7.5 mg Tablet 7.5 mg PO BEDTIME [place] Cough Drops 5.8 mg Lozenge 5.8 mg MUCOUS MEMBRANE Q4H PRN (Reason: Cough) Invega Sustenna 117 mg/0.75 mL syringe 117 mg IM Q30D Rx Instructions: on the guaifenesin [Mucinex] 600 mg Tablet Extended Release 12hr 600 mg PO BID Clear Eyes Natural Tears 0.5-0.6 % Drops 1 drp OPHTHALMIC (EYE) TID PRN (Reason: Dry Eyes) Dakin's Solution 0.125 % See Rx Instructions .ROUTE .COMPLEX Rx Instructions: Apply topically every shift mid spine: cleanse with NS and gauze, apply dakins damp gauze to wound bed and cover with dry gauze and secure with tape Robitussin Cough-Sore Throat 325-10 mg/10 mL Liquid 10 ml PO Q6H PRN (Reason: cough or congestion) Santyl See Rx Instructions .ROUTE .COMPLEX Rx Instructions: 1 application topically as directed every shift; Mid spine: Cleanse with NS and gauze. Apply Santyl to wound bed only and cover with bordered foam gauze. cyanocobalamin (vitamin B-12) 1,000 mcg capsule 1,000 mcg PO DAILY Qty: 30 0RF ferrous gluconate 324 mg (37.5 mg iron) tablet 324 mg PO DAILY Qty: 30 0RF Eliquis DVT-PE Treat 30D Start 5 mg (74 tabs) tablets,dose pack See Rx Instructions .ROUTE .COMPLEX Qty: 74 0RF Rx Instructions: orally per package directions Referrals: Meliton Stevens DO [Primary Care Provider] - Coding Level of Care Code ED Medical Office Assistant Instructor for Rosinag Deanna
[2023-08-18] MEDS: midazolam hcl 100 MG/100 ML BAG IV (15:38)
[2023-08-18 15:39] LABS: ABG PCO2 34.4 mmHg (35-45); ABG PH Result 7.32 (7.35-7.45); Alveolar-Arterial Oxygen Gradi 32.5 mmHg (5-10); Arterial Blood Gas Hematocrit 31.4 % (37-47); Base Excess ABG -7.9 mmol/L (-2.0-2.0); Blood Gas Allen Test Pos; Blood Gas Operator Identificat CAK; Blood Gas Sample Site Brachial, left; Blood Gas Sample Type Arterial; HCO3 ABG 17.5 mmol/L (22-26); HGB O2 Sat 99.3 % (95-100); Ionized Calcium Level - ABG 1.2 mmol/L (1.1-1.4); Methemoglobin 0.5 % (0.4-1.5); Oxygen Device VENT; Oxygen Saturation ABG > 100.0; PO2 FiO2 Ratio Arterial Blood 0; Potassium Level - ABG 3.7 mmol/L (3.5-5.0); Total Hemoglobin 10.2 g/dL (12-16)
[2023-08-18] MEDS: fentaNYL 1,000 MCG/100 ML BAG 2.5 MCG IV (15:43)
[2023-08-18] MEDS: norepinephrine 4 MG/250 ML BAG 30 MG IV (15:56)
[2023-08-18 15:57] LABS: Hematocrit 33.4 % (36-47); Mean Corpuscular HGB Conc 30.5 g/dL (30-55); Mean Corpuscular Hemoglobin 28.6 pg (27-33); Mean Corpuscular Volume 93.6 fl (85-98); Mean Platelet Volume 9.2 fL (7.4-10.4); Platelet Count 486 10^3/cmm (157-399); Red Blood Count 3.57 10^6/uL (3.85-5.65); Red Cell Distribution Width 15.5 % (12.1-15.1); White Blood Count 19.79 10^3/uL (3.29-11.43)
[2023-08-18] MEDS: sodium chloride 0.9% 1,000 ML 999 ML IV (16:03)
[2023-08-18 16:28] LABS: Chloride 101 mmol/L (98-107); Potassium 4.3 mmol/L (3.5-5.1); Sodium 138 mmol/L (136-145)
[2023-08-18 16:29] LABS: Absolute Segmented Neutrophil 12.5 10/cmm (1.6-7.1); Band Neutrophils Absolute 1.6 10^3/cmm (0.0-1.2); Segmented Neutrophils 63 %; Slide Review Slide Review Perform; Total Cells Counted 100 (0-100)
[2023-08-18 16:30] LABS: Absolute Neutrophil 14.1 10^3/cmm (1.4-6.5); Anisocytosis Trace; Eosinophils 0 %; Giant Platelets Trace; Lymphocytes 25 %; Lymphocytes Absolute 4.9 10^3/cmm (1.2-3.4); Monocytes Absolute 0.2 10^3/cmm (0.1-0.6); Platelet Estimate Increased (Normal)
[2023-08-18 16:34] LABS: Troponin(5th) Baseline 56 ng/L (0-10)
[2023-08-18 16:42] LABS: Alanine Aminotransferase 164 U/L (0-33); Anion Gap 23.3 (5-19); Aspartate Amino Transferase 292 U/L (0-32); Blood Urea Nitrogen 12 mg/dL (8-23); Calcium 8.5 mg/dL (8.5-10.5); Carbon Dioxide 18 mmol/L (22-29); Glucose 263 mg/dL (65-115); Osmolality Calculated 295 mOsm/kg (285-295); Total Bilirubin 0.2 mg/dL (0.15-1.2); Total Protein 5.7 g/dL (6.6-8.7)
[2023-08-18 16:46] LABS: Alkaline Phosphatase 498 U/L (35-105); Globulin 2.7 g/dL (1.3-4.6)
[2023-08-18] MEDS: iohexol 350 mg/mL 500 mL Btl (per mL) IV (17:24)
--- NOTE | 2023-08-18 17:24 | ECG_ITS ---
[facility] Test Date: 2023-08-18 Pat Name: Josiah Mohr Department: Room: Gender: Female Consumer Sales Representative: : 1950 Requested By: Jeramie Urban Order Number: [id number] Janeth MD: Tina Carmichael M.D. Measurements Intervals [place] Rate: 108 P: 50 AR: 156 QRS: -12 QRSD: 63 T: 87 QT: 329 QTc: 442 Interpretive Statements SINUS TACHYCARDIA POSSIBLE RIGHT VENTRICULAR CONDUCTION DELAY [RSR (QR) IN V1/V2] ABNORMAL RHYTHM ECG Compared to ECG 08/18/2023 15:34:38 No significant changes Electronically Signed On 08-19-2023 19:41:56 OTR TRUCK DRIVER by Tina Carmichael M.D. [id number]
[2023-08-18 18:02] LABS: Influenza A by IFA Negative (Negative); Influenza B by IFA Negative (Negative)
--- NOTE | 2023-08-18 18:20 | PC.NURSE ---
PT ARRIVED BY EMS AFTER BEING FOUND DOWN AT [facility]. EMS STATES THEY DID CPR FOR 20 MINUTES BEFORE GETTING ROSC. EMS STATES THEY FOUND A SIGNIFICANT AMOUNT OF PEANUT BUTTER IN HER TRACHEA WHILE INTUBATING HER. PT ARRIVES WITH A PICC LINE IN HER RIGHT UPPER ARM AND A WOUND VAC TO HER RIGHT BUTTOCKS. PT HAS PRESSURE ULCERS (SCABBED) BILATERALLY ON BOTH HEELS.
--- NOTE | 2023-08-18 18:25 | PC.NURSE ---
PT PLACED UNDER WARMING BLANKETS DUE TO LOW RECTAL TEMP. PT SUSTAINING OWN BLOOD PRESSURE LEVOPHED TITRATED DOWN TO 4MCG, PTS MAP (87).
[2023-08-18 18:28] LABS: Add Urine Culture? Yes; Add Urine Microscopic? YES; Amorphous Sediment Urine 3+ /hpf; Bacteria Urine TRACE /hpf; Bilirubin Urine Neg (Negative); Blood Urine 3+ (Negative); Glucose Urine UA 1+ (Normal); Ketones Urine 1+ (Negative); Leukocyte Esterase Urine Negative (Negative); Nitrate Urine Negative (Negative); Protein Urine 3+ (Negative); RBC Urine >100 /hpf (0-2); Specific Gravity, Urine 1.015 (1.005-1.030); Squamous Epithelial Cell Urine 0-4 /hpf (0-5); Urine Appearance Hazy (CLEAR); Urine Color Yellow (Yellow); Urobilinogen Urine Norm (Negative); pH Urine 6.5 (5-7)
--- NOTE | 2023-08-18 18:30 | PM.HP ---
Providers/Chief Complaint Admitting Physician: Emmy Vines MD Primary Care Provider: Meliton Stevens DO Chief Complaint: post code History of Present Illness Josiah Mohr is a 73 year old female who has multiple comorbid conditions, osteomyelitis, PICC line in place, chronic Daley catheter, sacral ulcer, [facility] patient [facility] on food CPR was done for about 7 minutes EMS intubated her, she was acidotic in the ER she received septic bolus however she is afebrile, lactic acid is related to septic shock and cardiac arrest, abnormal liver enzymes noted She was given septic bolus antibiotics urine and blood culture obtained, Levophed was started along sedatives she received broad-spectrum antibiotics, considering ESBL UTI I transitioned her antibiotics to meropenem Admit to ICU Family is not picking up my phone call, left a voicemail to her brother, I also informed public servicenow administrator developer about her hospitalization Patient was discharged on Eliquis, hemoglobin remained stable, my concern is related to PE considering recent DVT however IVC filter was placed D-dimer is still extremely high Review of Systems General: Reports: ROS unobtainable due to endotracheal tube Medications/Allergies Home Medications Medication Instructions Recorded Confirmed Last Taken Type acetaminophen 325 mg tablet 650 mg PO Q4H PRN Pain 06/17/21 08/19/23 07/20/23 06:37 History bisacodyl 10 mg rectal suppository 10 mg MT DAILY PRN Constipation 06/17/21 08/19/23 01/19/23 10:05 History furosemide 20 mg tablet (Lasix) 20 mg PO DAILY 06/17/21 08/19/23 08/18/23 08:33 History magnesium hydroxide 400 mg/5 mL 30 ml PO DAILY PRN Constipation 06/17/21 08/19/23 02/17/23 16:58 History oral suspension (Milk of Magnesia) sodium phosphates 19 gram-7 118 ml MT DAILY PRN Constipation 06/17/21 08/19/23 Unknown History gram/118 mL enema (Fleet Enema) bismuth subsalicylate 262 mg/15 mL See Rx Instructions .Route 03/13/23 08/19/23 02/12/23 19:45 History oral suspension (Pepto-Bismol) .COMPLEX PRN Diarrhea fluticasone propionate 50 1 spray intranasal DAILY 0808/19/23 07/29/23 03:49 History mcg/actuation nasal spray,suspension guaifenesin 600 mg tablet, 600 mg PO BID 03/13/23 08/19/23 07/14/23 History extended release 12 hr (Mucinex) menthol 5.8 mg lozenges ([place] 5.8 mg mucous membrane Q4H PRN 03/13/23 08/19/23 06/12/23 08:57 History Cough Drops) Cough mirtazapine 7.5 mg tablet 7.5 mg PO BEDTIME 03/13/23 08/19/23 08/17/23 09:08 History nystatin 100,000 unit/gram topical See Rx Instructions .Route .COMPLEX 03/13/23 08/19/23 08/17/23 09:08 History powder pantoprazole 20 mg tablet,delayed 20 mg PO DAILY 03/13/23 08/19/23 08/18/23 08:33 History release Dakin's Solution See Rx Instructions .Route .COMPLEX 07/14/23 08/19/23 08/18/23 11:19 History acetaminophen 325 mg-DM 10 mg/10 10 ml PO Q6H PRN cough or 07/14/23 08/19/23 Unknown History mL oral liquid (Robitussin congestion Cough-Sore Throat) polyvinyl alcohol-povidone 0.5 1 drp ophthalmic (eye) TID PRN Dry 07/14/23 08/19/23 Unknown History %-0.6 % eye drops (Clear Eyes Eyes Natural Tears) cyanocobalamin (vitamin B-12) 1,000 mcg PO DAILY #30 caps 07/18/23 08/19/23 08/18/23 08:33 Rx 1,000 mcg capsule ferrous gluconate 324 mg (37.5 mg 324 mg PO DAILY #30 tabs 07/18/23 08/19/23 Unknown Rx iron) tablet apixaban 5 mg tablet (Eliquis) 5 mg PO BID 08/19/23 08/19/23 Unknown History ertapenem 1 gram solution for 1 g IM DAILY 08/19/23 08/19/23 08/18/23 09:57 History injection heparin, porcine (PF) 100 unit/mL 500 unit IV TID 08/19/23 08/19/23 08/18/23 09:57 History intravenous syringe paliperidone palmitate 156 mg/mL 156 mg IM Q30D 08/19/23 08/19/23 08/17/23 History intramuscular syringe (Invega Sustenna) sodium chloride 0.9 % (flush) 10 ml IV PRN 08/19/23 08/19/23 Unknown History (Normal Saline Flush 0.9 % injection syringe) Allergies Allergy/AdvReac Type Severity Reaction Status Date / Time No Known Allergies Allergy Verified 08/19/23 09:00 PFSH Acute PFSH: Medical History Deep vein thrombosis, lower left extremity Stage IV decubitus ulcer Acute osteomyelitis, pelvis Schizophrenia Microcytic anemia Surgical History S/P insertion of IVC (inferior vena caval) filter Status post excisional debridement Social History Smoking and tobacco/nicotine status: never used tobacco/nicotine Alcohol intake: unknown Substance/Drug Use: unknown Housing: Half-Way Vitals/I&O/Wt Last Vital Signs Temp 95.6 F L 08/18/23 15:39 Pulse 103 H 08/18/23 18:10 Resp 9 L 08/18/23 18:10 BP 120/74 08/18/23 18:10 Pulse Ox 100 08/18/23 18:17 O2 Del Method Mechanical Ventilation 08/18/23 18:17 FiO2 35 08/18/23 18:17 08/18/23 08/18/23 08/18/23 06:59 14:59 22:59 Intake Total 59.783 / 59.783 Balance 59.783 / 59.783 Physical Exam Narrative: Patient intubated sedated Dehydrated Sacral ulcer Daley catheter in place with purulent urine Dry extremities Dry mucous membranes Minimal vent settings PEEP 5 FiO2 35% Hemodynamically stable Neuroexam limited Abdomen soft Septic exam: Patient is encephalopathic, no skin mottling Minimal urine output Data 08/19/23 06:06 08/19/23 06:06 Micro: Microbiology 08/18/23 15:30 Gram Stain - Final Sputum - Endotracheal Tube Aspirate A&P Assessment and plan (1) Cardiac arrest: (2) Deep vein thrombosis, lower left extremity: (3) S/P insertion of IVC (inferior vena caval) filter: (4) Acute cystitis: Qualifiers: Hematuria presence: without hematuria Qualified Code(s): N30.00 - Acute cystitis without hematuria (5) Microcytic anemia: (6) Acute osteomyelitis, pelvis: (7) Gram-positive bacteremia: (8) Stage IV decubitus ulcer: (9) Decubitus ulcer: Qualifiers: Laterality: unspecified laterality Pressure injury location: buttock Pressure injury stage: unspecified pressure injury stage Qualified Code(s): L89.309 - Pressure ulcer of unspecified buttock, unspecified stage (10) Status post excisional debridement: (11) Respiratory failure requiring intubation: (12) Metabolic acidosis: (13) Septic shock: Plan Cardiac arrest most likely related to hypoxia induced by aspiration Patient had 8 minutes of CPR 6 rounds of epi ROSC was obtained patient was intubated by the EMS A lot of food debris was found during intubation Currently on mechanical ventilator with sedation Requested troponin and EKG Patient had IVC filter placed for DVT not a candidate for anticoagulation due to recurrent blood transfusion related GI bleed I will continue therapeutic anticoagulating agent Septic shock: Currently on Levophed Septic bolus blood culture administered in the ER I will request lactic acid Patient remains full code Will request echo Patient has recently received PICC line for osteomyelitis, she also has a wound VAC in place, sacral ulcer Was recently discharged in July 2023 Records reviewed Spoke with the ER physician Admit to ICU Attestations Medical Necessity Statement*: Greater than 2 2 midnights anticipated Coding Level of Care Code Critical Care >/= 30 minutes Critical care time (in minutes): 45 The high probability of a clinically significant, sudden or life threatening deterioration, as referenced in this documentation, required my full and direct attention, intervention and personal management. The critical care time shown is in addition to time spent performing any reported separately billable procedures and includes the following: [x] Data and vital sign review and interpretation [x] Patient assessment, examination and intervention [x] Medication orders and management [x] Patient/Family updates as able [x] Care Coordination and Documentation. Diagnoses Cardiac arrest I46.9 Deep vein thrombosis, lower left extremity I82.402 S/P insertion of IVC (inferior vena caval) filter Z95.828 Acute cystitis N30.00 Hematuria presence: without hematuria Microcytic anemia D50.9 Acute osteomyelitis, pelvis M86.159 Gram-positive bacteremia R78.81 Stage IV decubitus ulcer L89.94 Decubitus ulcer L89.309 Laterality: unspecified laterality Pressure injury location: buttock Pressure injury stage: unspecified pressure injury stage Status post excisional debridement Z98.890 Respiratory failure requiring intubation J96.90 Metabolic acidosis E87.20 Septic shock A41.9; R65.21
--- NOTE | 2023-08-18 18:47 | PC.NURSE ---
ANTIBIOTIC DELAYED DUE TO BLOOD CULTURES.
[2023-08-18 19:00] LABS: Adenovirus Not Detected (NOT DETECT); Chlamydia Pneumoniae Not Detected (NOT DETECT); Coronavirus 229E,HKU1,NL63,OC4 Not Detected (NOT DETECT); Human Metapneumovirus Not Detected (NOT DETECT); Human Rhinovirus/Enterovirus Not Detected (NOT DETECT); Influenza A Not Detected (NOT DETECT); Influenza A H1 Not Detected (NOT DETECT); Influenza A H1-2009 Not Detected (NOT DETECT); Influenza A H3 Not Detected (NOT DETECT); Influenza B Not Detected (NOT DETECT); Mycoplasma Pneumoniae Not Detected (NOT DETECT); Parainfluenza Virus Type 1 Not Detected (NOT DETECT); Parainfluenza Virus Type 2 Not Detected (NOT DETECT); Parainfluenza Virus Type 3 Not Detected (NOT DETECT); Parainfluenza Virus Type 4 Not Detected (NOT DETECT); Respiratory Syncytial Virus A Not Detected (NOT DETECT); Respiratory Syncytial Virus B Not Detected (NOT DETECT); SARS-COV-2 Not Detected (NOT DETECT)
[2023-08-18 19:05] LABS: NT Pro B Type Natriuretic Pept 221 pg/mL (0-450); Procalcitonin 0.05 ng/mL (0-0.5)
--- NOTE | 2023-08-18 19:26 | USCV_ITS ---
Josiah Mohr Age: 73 Gender: F : 1950 Exam Date: 08/18/2023 22:00 Ordering Phys: Emmy Vines MD Technologist: BRENDA Exam Location: [facility] [place] Indication: post cardiac arrest. Patient is on ventilator in ICU-5 BP: 120 / 74 HR: 92 Rhythm: mostly sinus rhythm with some intervals of Afib Technical Quality: Adequate MEASUREMENTS (Male / Female) Normal Values 2D ECHO LV Diastolic Diameter PLAX 3.3 cm 4.2 - 5.9 / 3.9 - 5.3 cm LV Systolic Diameter PLAX 2.2 cm IVS Diastolic Thickness 1.2 cm 0.6 - 1.0 / 0.6 - 0.9 cm IVS Systolic Thickness 1.8 cm LVPW Diastolic Thickness 1.4 cm 0.6 - 1.0 / 0.6 - 0.9 cm LVPW Systolic Thickness 1.0 cm LVOT Diameter 1.7 cm LV Ejection Fraction 2D Teich 65.4 % LV Ejection Fraction MOD 2C 63.9 % LV Ejection Fraction 2C AL 65.5 % LA Diameter 3.0 cm LA Width 3.4 cm LA Height 5.8 cm RA Width 3.0 cm RA Height 4.5 cm Aorta at Sinotubular Diameter 2.8 cm IVC Diameter 0.6 cm M-MODE Aortic Annulus Diameter 2.8 cm LA Ao Ratio MM 1.0 MV E Point Septal Separation 0.4 cm DOPPLER AV Peak Velocity 94.0 cm/s LVOT Peak Velocity 90.0 cm/s AV Area Cont Eq vti 2.3 cm squared AV Area Cont Eq pk 2.2 cm squared MV Peak Velocity 111.0 cm/s MV Area PHT 6.3 cm squared MV E' Velocity 63.5 cm/s Mitral E to MV E' Ratio 7.6 Mitral E to LV E' Lateral Ratio 8.0 Mitral E to LV E' Septal Ratio 7.3 TR Peak Velocity 240.0 cm/s TR Peak Gradient 23.0 mmHg TV Peak E Velocity 76.0 cm/s Right Atrial Pressure 5.0 mmHg Pulmonary Artery Systolic Pressu 28.0 mmHg PV Peak Velocity 77.0 cm/s RV Acceleration Time 0.1 s RV Ejection Time 0.3 s RV AcT/ET 0.3 FINDINGS Left Ventricle Normal left ventricular size and systolic function, EF 60 %. No regional wall motion abnormalities. Right Ventricle Appears to be of normal size ejection fraction Right Atrium The right atrium is normal in size. Left Atrium The left atrium is normal in size. Mitral Valve Thickened mitral valve. Mild mitral valve regurgitation. Aortic Valve Thickened aortic valve. Tricuspid Valve Mild tricuspid valve regurgitation. Pulmonic Valve No gross abnormalities noted Pericardium Normal pericardium without effusion. Aorta Normal ascending aorta dimension. IVC Normal inferior vena cava. CONCLUSIONS Normal left ventricular size and systolic function, EF 60 %. No regional wall motion abnormalities. Thickened mitral valve. Mild mitral valve regurgitation. Thickened aortic valve. There is no pericardial effusion. There are no intracardiac masses. No similar previous studies are available for comparison Dr Tina Carmichael MD FAC (Electronically Signed) Final Date: 19 August 2023 09:24 S
[2023-08-18 19:30] LABS: Lactate (Lactic Acid level) 7.7 mmol/L (0.5-2.2)
[2023-08-18 19:36] LABS: D Dimer >= 20.00 ug/mLFEU (0-0.59)
--- NOTE | 2023-08-18 20:03 | PC.PHAR ---
PHARMACY TO DOSE VANCOMYCIN Vanco Initial Dosing Patient Information Sex F M/F Last Name Fani AGE 73 years First Name Viky Ht 63 inches : 1950 ABW 55.474 kg Location: ICU-5 IBW 52.4 kg If loading dose given: DW 55.474 kg Loading DOSE: 1000 mg SCr 0.6 mg/dl This Dose = 18.0 mg/kg CrCl 67.0 ml/min 1st dose Cmax: 23.3 mcg/ml Vd 41.6055 liters Time elapsed: 18.0 hrs Ke 0.060 hrs-1 Serum Conc. = 7.9 mcg/ml t1/2 12 hrs Hrs until 20 mcg/ml 3.6 hrs Hrs until 15 mcg/ml 8.4 hours Hrs until 10 mcg/ml 15.1 hours Dose Tau (Freq) Levels expected Standard 1000 18 Cmax 34.3 Targets 18.03 17.3 Cpeak 32.3 25 to 40 mg/kg hours Cmin 13.1 10 to 20
[2023-08-18 20:05] LABS: Thyroid Stimulating Hormone 4.93 uIU/mL (0.27-4.20)
[2023-08-18] MEDS: sodium bicarbonate 150 MEQ in dextrose 5% 1,000 ML 100 MEQ IV (20:47)
[2023-08-18] MEDS: meropenem 500 MG in sodium chloride 0.9% (plus) 50 ML 100 MG IV (20:58)
[2023-08-18] MEDS: enoxaparin 100 mg/mL Syringe 60 MG SUBCUT (20:59)
[2023-08-18] MEDS: vancomycin 1,000 MG in sodium chloride 0.9% 250 ML 250 MG IV (21:39)
[2023-08-18 22:19] LABS: Troponin 5 6HR 181.5 ng/L (0-10); Troponin 5 6HR Delta 125.5 ng/L (0-12)
[2023-08-18] MEDS: piperacillin-tazobactam 3.375 GM in sodium chloride 0.9% (plus) 50 ML IV (22:48)
[2023-08-19] VITALS (214 sets, daily range): BP systolic 91–143; BP diastolic 52–99; PULSE 89–130; RESP 10–18; TEMP 36.4–38.2; O2SAT 96–100
--- NOTE | 2023-08-19 01:29 | ECG_ITS ---
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 Measurements Intervals [place] Rate: 127 P: 5 TN: 166 QRS: 9 QRSD: 68 T: 22 QT: 289 QTc: 421 Interpretive Statements SINUS TACHYCARDIA LOW QRS VOLTAGE IN PRECORDIAL LEADS [QRS DEFLECTION < 1.0 mV IN CHEST LEADS] MODERATE ST DEPRESSION [0.05+ mV ST DEPRESSION] Compared to ECG 08/18/2023 17:24:32 Low QRS voltage now present ST (T wave) deviation now present Electronically Signed On 08-19-2023 10:10:07 PROCESS STRIPPER by Tina Carmichael M.D. [id number]
[2023-08-19] MEDS: acetaminophen 500 mg Tablet PO (02:29)
[2023-08-19 04:23] LABS: ABG PCO2 36.9 mmHg (35-45); ABG PH Result 7.48 (7.35-7.45); Arterial Blood Gas Hematocrit 29.9 % (37-47); Base Excess ABG 3.5 mmol/L (-2.0-2.0); Blood Gas Allen Test Pos; Blood Gas Sample Site Radial, right; Blood Gas Sample Type Arterial; Blood Gas Tidal Volume 0.36; HCO3 ABG 27.2 mmol/L (22-26); Oxygen Device VENT; PO2 FiO2 Ratio Arterial Blood 0
[2023-08-19] MEDS: meropenem 500 MG in sodium chloride 0.9% (plus) 50 ML 100 MG IV ×3 (04:26→17:57)
[2023-08-19] MEDS: piperacillin-tazobactam 3.375 GM in sodium chloride 0.9% (plus) 50 ML IV ×3 (05:46→21:33)
[2023-08-19 06:16] LABS: Basophils # 0.1 10^3/uL (0.0-0.1); Basophils % 0.4 %; Eosinophils % 0.1 %; Lymphocytes # 0.9 10^3/uL (0.8-4.8); Lymphocytes % 8.2 %; Mean Corpuscular HGB Conc 31.6 g/dL (30-55); Mean Corpuscular Hemoglobin 28.1 pg (27-33); Mean Corpuscular Volume 88.8 fl (85-98); Monocytes # 0.5 10^3/uL (0.2-0.9); Monocytes % 4.4 %; Neutrophils # 9.88 10^3/uL (1.8-7.7); Neutrophils % 86.5 %; Nucleated Red Blood Cells % 0 %; Platelet Count 325 10^3/cmm (157-399); Red Blood Count 3.49 10^6/uL (3.85-5.65); Red Cell Distribution Width 15.4 % (12.1-15.1); White Blood Count 11.41 10^3/uL (3.29-11.43)
[2023-08-19 06:37] LABS: Lactate (Lactic Acid level) 3.6 mmol/L (0.5-2.2)
[2023-08-19 06:39] LABS: Anion Gap 14.3 (5-19); Blood Urea Nitrogen 16 mg/dL (8-23); C Reactive Protein 50.6 mg/L (0.0-4.9); Calcium 8.2 mg/dL (8.5-10.5); Carbon Dioxide 26 mmol/L (22-29); Chloride 104 mmol/L (98-107); Glucose 182 mg/dL (65-115); Magnesium 2.6 mg/dL (1.7-2.3); Osmolality Calculated 296 mOsm/kg (285-295); Phosphorus 3.6 mg/dL (2.5-4.5); Potassium 4.3 mmol/L (3.5-5.1); Sodium 140 mmol/L (136-145)
[2023-08-19] MEDS: enoxaparin 100 mg/mL Syringe 60 MG SUBCUT ×2 (08:20→21:33)
[2023-08-19] MEDS: pantoprazole 40 mg SDV IVP ×2 (08:22→17:56)
[2023-08-19] MEDS: FUROsemide 10 mg/mL SDV 10mL 60 MG IVP (08:24)
--- NOTE | 2023-08-19 11:49 | PM.PN ---
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 Vitals/I&O/Wt Last Vital Signs Temp 99.9 F H 08/19/23 08:00 Pulse 96 08/19/23 11:10 Resp 10 L 08/19/23 11:29 BP 114/60 08/19/23 11:10 Pulse Ox 99 08/19/23 11:29 O2 Del Method Mechanical Ventilation 08/18/23 19:48 FiO2 30 08/19/23 11:29 08/18/23 08/19/23 08/19/23 22:59 06:59 14:59 Intake Total 1359.783 / 1359.783 229.00 / 2416.963 8078.05 / 1328.05 Output Total 903 / 903 Balance 1359.783 / 1359.783 -674.00 / 765.198 5329.05 / 1328.05 Weight last 48 hrs Weight 57.969 kg Weight 55.474 kg Physical Exam Narrative: Patient is intubated and sedated Purulent drainage in catheter Abdomen nondistended Intubated sedated minimal neuroexam Lower extremity skin wrinkling noted Bilateral breath sound without adventitious rhonchi or crackles Assisted breath sounds Urinary Catheter Management: Daley: Cath Placed During This Visit: yes Urinary Catheter Date of Insertion: 08/19/23 Urinary Catheter Time of Insertion: 09:19 Data 08/19/23 06:06 08/19/23 06:06 Micro: Microbiology 08/18/23 15:30 Gram Stain - Final Sputum - Endotracheal Tube Aspirate Sputum Culture - Preliminary A&P Assessment and plan (1) Cardiac arrest: (2) Deep vein thrombosis, lower left extremity: (3) Respiratory failure requiring intubation: (4) Status post excisional debridement: (5) Decubitus ulcer: Qualifiers: Laterality: unspecified laterality Pressure injury location: buttock Pressure injury stage: unspecified pressure injury stage Qualified Code(s): L89.309 - Pressure ulcer of unspecified buttock, unspecified stage (6) Stage IV decubitus ulcer: (7) Septic shock: (8) Gram-positive bacteremia: (9) Acute osteomyelitis, pelvis: (10) Microcytic anemia: (11) Acute cystitis: Qualifiers: Hematuria presence: without hematuria Qualified Code(s): N30.00 - Acute cystitis without hematuria (12) Metabolic acidosis: (13) S/P insertion of IVC (inferior vena caval) filter: Plan Cardiac arrest related to aspiration Patient intubated by the EMS Weaning trial today sedation vacation Septic shock: Levophed turned off Continue IV fluids Repeat lactic acid Continue antibiotics Febrile events noted Sacral ulcer osteomyelitis, UTI, I will repeat blood culture urine culture and change Daley catheter Metabolic acidosis improved bicarb drip turned off Accu-Cheks every 6 hours Continue normal saline Continue therapeutic Lovenox Extremely high D-dimer however no PE on CTA chest Recent lower extremity DVT I still have not heard anything from her family Public social insurance administrator has been informed Considering multiple comorbid conditions, patient seems to be getting worse, I would like to discuss goals of care with her family or public social insurance administrator She is full code for now Attestations Medical Necessity Statement*: Continue ICU management Coding Level of Care Code Critical Care >/= 30 minutes Critical care time (in minutes): 30 The high probability of a clinically significant, sudden or life threatening deterioration, as referenced in this documentation, required my full and direct attention, intervention and personal management. The critical care time shown is in addition to time spent performing any reported separately billable procedures and includes the following: [x] Data and vital sign review and interpretation [x] Patient assessment, examination and intervention [x] Medication orders and management [x] Patient/Family updates as able [x] Care Coordination and Documentation. Diagnoses Cardiac arrest I46.9 Deep vein thrombosis, lower left extremity I82.402 Respiratory failure requiring intubation J96.90 Status post excisional debridement Z98.890 Decubitus ulcer L89.309 Laterality: unspecified laterality Pressure injury location: buttock Pressure injury stage: unspecified pressure injury stage Stage IV decubitus ulcer L89.94 Septic shock A41.9; R65.21 Gram-positive bacteremia R78.81 Acute osteomyelitis, pelvis M86.159 Microcytic anemia D50.9 Acute cystitis N30.00 Hematuria presence: without hematuria Metabolic acidosis E87.20 S/P insertion of IVC (inferior vena caval) filter Z95.828
--- NOTE | 2023-08-19 11:57 | P.EN_ITS ---
Event Note Event Note: Spoke to public automobile repair service estimator who was able to get a hold of [id number] of Ms. Mohr, family is leaning towards DNR/DNI status we will discuss further once the family is in the ICU
--- NOTE | 2023-08-19 11:57 | W.PM.EVENTAC ---
Event Note Event Note: Spoke to public mechanical estimator who was able to get a hold of [id number] of Ms. Mohr, family is leaning towards DNR/DNI status we will discuss further once the family is in the ICU
[2023-08-19] MEDS: sodium chloride 0.9% 1,000 ML 100 ML IV ×2 (12:09→23:35)
[2023-08-19 13:02] LABS: Lactate (Lactic Acid level) 1.6 mmol/L (0.5-2.2)
--- NOTE | 2023-08-19 13:07 | PC.NURSE ---
Patients code status changed to DNR/DNI per Brother Curry Mohr via Dr. Vines
[2023-08-19] MEDS: vancomycin 1,000 MG in sodium chloride 0.9% 250 ML 250 MG IV (14:38)
--- NOTE | 2023-08-19 17:06 | PC.NURSE ---
Patient has been off of sedation most of the shift. Still not making purposeful movements. Will continue to await for movement, currently on pressure support on vent.
[2023-08-19 18:23] LABS: Glucose Point of Care 120 mg/dL (70-110)
[2023-08-19 23:51] LABS: Glucose Point of Care 101 mg/dL (70-110)
[2023-08-20] VITALS (263 sets, daily range): BP systolic 96–164; BP diastolic 52–91; PULSE 0–130; RESP 12–24; TEMP 38.3–39.3; O2SAT 90–100
[2023-08-20] MEDS: meropenem 500 MG in sodium chloride 0.9% (plus) 50 ML 100 MG IV ×2 (03:11→12:20)
[2023-08-20] MEDS: acetaminophen 500 mg Tablet PO ×3 (03:54→17:15)
[2023-08-20 04:47] LABS: ABG PCO2 38.2 mmHg (35-45); ABG PH Result 7.51 (7.35-7.45); Arterial Blood Gas Hematocrit 27.2 % (37-47); Base Excess ABG 6.6 mmol/L (-2.0-2.0); Blood Gas Allen Test Pos; Blood Gas Sample Site Brachial, right; Blood Gas Sample Type Arterial; Blood Gas Tidal Volume 0.36; HCO3 ABG 30.2 mmol/L (22-26); Oxygen Device VENT; PO2 ABG 89.6 mmHg (80.0-100.0); PO2 FiO2 Ratio Arterial Blood 0
[2023-08-20] MEDS: piperacillin-tazobactam 3.375 GM in sodium chloride 0.9% (plus) 50 ML IV (05:53)
[2023-08-20 06:05] LABS: Basophils # 0.1 10^3/uL (0.0-0.1); Basophils % 0.6 %; Eosinophils # 0.1 10^3/uL (0.0-0.8); Eosinophils % 0.5 %; Hematocrit 26.8 % (36-47); Lymphocytes # 1.4 10^3/uL (0.8-4.8); Lymphocytes % 12.2 %; Mean Corpuscular Hemoglobin 27.8 pg (27-33); Mean Corpuscular Volume 89.6 fl (85-98); Mean Platelet Volume 9.4 fL (7.4-10.4); Monocytes # 0.8 10^3/uL (0.2-0.9); Monocytes % 6.5 %; Neutrophils # 9.28 10^3/uL (1.8-7.7); Neutrophils % 79.7 %; Nucleated Red Blood Cells % 0 %; Platelet Count 355 10^3/cmm (157-399); Red Blood Count 2.99 10^6/uL (3.85-5.65); Red Cell Distribution Width 16.4 % (12.1-15.1); White Blood Count 11.65 10^3/uL (3.29-11.43)
[2023-08-20 06:24] LABS: Alanine Aminotransferase 78 U/L (0-33); Albumin Level 2.6 g/dL (3.5-5.2); Alkaline Phosphatase 258 U/L (35-105); Anion Gap 12.2 (5-19); Aspartate Amino Transferase 62 U/L (0-32); Blood Urea Nitrogen 22 mg/dL (8-23); Calcium 8.2 mg/dL (8.5-10.5); Carbon Dioxide 28 mmol/L (22-29); Chloride 101 mmol/L (98-107); Globulin 2.5 g/dL (1.3-4.6); Glucose 116 mg/dL (65-115); Osmolality Calculated 290 mOsm/kg (285-295); Potassium 3.2 mmol/L (3.5-5.1); Sodium 138 mmol/L (136-145); Total Bilirubin 0.2 mg/dL (0.15-1.2); Total Protein 5.1 g/dL (6.6-8.7)
[2023-08-20] MEDS: vancomycin 1,000 MG in sodium chloride 0.9% 250 ML 250 MG IV (08:19)
[2023-08-20] MEDS: pantoprazole 40 mg SDV IVP ×2 (08:20→17:09)
[2023-08-20] MEDS: enoxaparin 100 mg/mL Syringe 60 MG SUBCUT (08:21)
[2023-08-20] MEDS: sodium chloride 0.9% 1,000 ML 100 ML IV (08:25)
[2023-08-20] MEDS: ketorolac 30 mg/mL INJ IVP (09:31)
--- NOTE | 2023-08-20 12:02 | P.PN_ITS ---
Subjective 2 Subjective: Failure to extubate Off sedation since yesterday Minimal vent settings Febrile events Daley catheter has been exchanged She is on vancomycin and meropenem Patient is not following commands Repeating CT head today Tachycardia is in line with her fever Drop in hemoglobin noted as well Hemodynamically stable Vitals/I&O/Wt Last Vital Signs Temp 102 F H 08/20/23 09:00 Pulse 123 H 08/20/23 11:25 Resp 16 08/20/23 11:28 BP 132/69 08/20/23 11:25 Pulse Ox 96 08/20/23 11:28 O2 Del Method Mechanical Ventilation 08/18/23 19:48 FiO2 30 08/20/23 11:28 08/19/23 08/20/23 08/20/23 22:59 06:59 14:59 Intake Total 1350 / 2728.05 100 / 2828.05 1183.333 / 1183.333 Output Total 1952 / 1952 300 / 2253 Balance -603 / 775.05 -200 / 575.05 1183.333 / 1183.333 Weight last 48 hrs Weight 57.606 kg Weight 57.969 kg Weight 55.474 kg Physical Exam 2 Narrative: Intubated off sedation Not following commands Sacral ulcer Daley catheter with dilute urine Neuroexam limited Patient not following commands at all Edema of upper extremities noted abdomen soft Lower extremities with wrinkled skin Urinary Catheter Management: Daley: Cath Placed During This Visit: yes Reason for Continuing Indwelling Catheter: Accurate Measurement of Urinary Output in Critically Ill Patients Urinary Catheter Date of Insertion: 08/19/23 Urinary Catheter Time of Insertion: 09:19 Data 08/20/23 05:39 08/20/23 05:39 Micro: Microbiology 08/18/23 18:00 Urine Culture - Preliminary Urine,Clean Catch 08/18/23 15:30 Gram Stain - Final Sputum - Endotracheal Tube Aspirate Sputum Culture - Preliminary A&P Assessment and plan (1) Cardiac arrest: (2) Deep vein thrombosis, lower left extremity: (3) S/P insertion of IVC (inferior vena caval) filter: (4) Metabolic acidosis: (5) Acute cystitis: Qualifiers: Hematuria presence: without hematuria Qualified Code(s): N30.00 - Acute cystitis without hematuria (6) Microcytic anemia: (7) Acute osteomyelitis, pelvis: (8) Gram-positive bacteremia: (9) Septic shock: (10) Stage IV decubitus ulcer: (11) Decubitus ulcer: Qualifiers: Laterality: unspecified laterality Pressure injury location: buttock P ressure injury stage: unspecified pressure injury stage Qualified Code(s): L 89.309 - Pressure ulcer of unspecified buttock, unspecified stage (12) Status post excisional debridement: (13) Respiratory failure requiring intubation: Plan Failure to extubate Patient not able to follow commands Concern for anoxic brain injury Will repeat CT head along CT abdomen pelvis Persistent fever off Levophed Septic shock resolved patient is still showing signs of sepsis Tachycardia With fever Poor prognosis If you are not able to extubate I do not think patient will be a good candidate for PEG tube placement or tracheostomy She is suffering from septic osteomyelitis of pelvis she was already on broad- spectrum antibiotics I am continuing vancomycin and meropenem at this point She also suffered from ESBL UTI Hold fluids continue Lasix she is showing signs of third spacing Daley catheter has been exchanged Recent DVT IVC filter placement Patient evaluated multiple times Attestations 2 Medical Necessity Statement*: Continue medical management in ICU Coding Level of Care Code Critical Care >/= 30 minutes Critical care time (in minutes): 30 The high probability of a clinically significant, sudden or life threatening deterioration, as referenced in this documentation, required my full and direct attention, intervention and personal management. The critical care time shown is in addition to time spent performing any reported separately billable procedures and includes the following: [x] Data and vital sign review and interpretation [x ] Patient assessment, examination and intervention [x] Medication orders and management [x] Patient/Family updates as able [x] Care Coordination and Documentation. Diagnoses Cardiac arrest I46.9 Deep vein thrombosis, lower left extremity I82.402 S/P insertion of IVC (inferior vena caval) filter Z95.828 Metabolic acidosis E87.20 Acute cystitis N30.00 Hematuria presence: without hematuria Microcytic anemia D50.9 Acute osteomyelitis, pelvis M86.159 Gram-positive bacteremia R78.81 Septic shock A41.9; R65.21 Stage IV decubitus ulcer L89.94 Decubitus ulcer L89.309 Laterality: unspecified laterality Pressure injury location: buttock Pressure injury stage: unspecified pressure injury stage Status post excisional debridement Z98.890 Respiratory failure requiring intubation J96.90
--- NOTE | 2023-08-20 12:05 | CT_ITS ---
WS: [id number] CT HEAD NONCONTRAST HISTORY: Cardiac arrest TECHNIQUE: Contiguous axial imaging performed through the brain in 2.5 mm imaging. Bone and soft tiss ue windows. Sagittal and coronal reformats reviewed. All CT scans at [facility] use at least one of these dose optimization techniques: automated exposure control; mA and/or kV adjustment per pa tient size (includes targeted exams where dose is matched to clinical indication); or iterative recon struction. DLP: 1069.48 mGy.cm COMPARISON: 08/18/2023 No acute intracranial hemorrhage. Questionable loss of chavez-white matter differentiation especially t owards the vertex. Small amount of cerebral edema is not excluded. There is no midline shift. Poor di fferentiation of the thalami and basal ganglia. No inferior displacement of the cerebellar tonsils. Ventricles: Normal size with no hydrocephalus. Paranasal sinuses: As visualized are clear. Mastoid air cells: Well pneumatized. Calvarium and scalp: Skull is intact with no soft tissue edema or swelling. IMPRESSION: 1. No acute intracranial hemorrhage. 2. Questionable but suspicious for cerebral edema. Loss of the chavez-white matter differentiation of the basal ganglia, thalami and towards the vertex. For a patient of this age I would have expected th e sulci to be more prominent. There is no midline shift. No herniation. As compared to the most recen t exam of 08/18/2023 there does appear to be just slightly greater effacement of the sulci especially towards the vertex.
--- NOTE | 2023-08-20 12:10 | CT_ITS ---
WS: [id number] CT ABDOMEN AND PELVIS NONCONTRAST HISTORY: Fever, UTI TECHNIQUE: Imaging performed through the abdomen and pelvis. Coronal and sagittal reformats are submi tted. All CT scans at [facility] use at least one of these dose optimization techniques: auto mated exposure control; mA and/or kV adjustment per patient size (includes targeted exams where dose is matched to clinical indication); or iterative reconstruction. DLP: 595.21 mGy.cm COMPARISON: 06/18/2021 and 07/15/2023 Lower thorax: Small layering bilateral pleural effusions with compressive atelectasis. Stomach is herson rly completely intrathoracic. There is a nasogastric tube tube present. Liver: Significant artifact through the liver. Gallbladder: Mildly hydropic gallbladder with stones and sludge. No adjacent inflammation. Poorly vis ualized common bile duct. No intrahepatic duct dilatation is identified. Pancreas: Normal size and attenuation. Normal pancreatic duct. No pancreatitis or mass. Spleen: Normal. Adrenal glands: Normal. No mass. Right kidney: Normal size kidney with no mass or hydronephrosis. Left kidney: Normal size kidney with no mass or hydronephrosis. Aorta: Moderate atherosclerosis. There is an IVC filter present. No free fluid, intraperitoneal air or significant lymphadenopathy. GI tract: Nasogastric tube present in the stomach. No small bowel obstruction. Diffuse constipation. Abdominal wall: Diffuse soft tissue anasarca. Pelvis: Small amount of air in the urinary bladder along the Daley catheter. External tubing into the rectum may be a temperature monitoring device. Osseous structures: Osteopenia. Patient has known bilateral deep decubitus ulcers extending to the is chial tuberosities which were recently described on 07/15/2023. No interval change. Increase in the l umbar lordosis. IMPRESSION: 1. Small bilateral pleural effusions with bibasilar atelectasis. 2. Majority of the stomach is intrathoracic. Nasogastric tube in good position. 3. Abnormal gallbladder. Distended gallbladder with stones and/or sludge. This can be seen with acut e cholecystitis and long-term fasting. Bile ducts do not appear dilated but evaluation is limited. 4. Soft tissue anasarca. 5. IVC filter. 6. No free fluid. 7. Known bilateral decubitus ulcers contact the ischial tuberosities.
[2023-08-20] MEDS: FUROsemide 10 mg/mL SDV 10mL 40 MG IVP (12:27)
--- NOTE | 2023-08-20 17:51 | PM.DDS ---
Discharge Providers DDS Date of Admission: 08/18/23 19:26 Date Summary Completed: 08/20/23 Attending Provider at Admission: Emmy Vines MD Attending Provider at Discharge: Emmy Vines MD Primary Care Provider: DO TEX Farris Diagnoses Hospital Diagnoses (1) Cardiac arrest: Permanent Problem Comments: Related to aspiration and food, ROSC obtained within 7 minutes (2) Deep vein thrombosis, lower left extremity: (3) S/P insertion of IVC (inferior vena caval) filter: (4) Metabolic acidosis: (5) Acute cystitis: Qualifiers: Hematuria presence: without hematuria Qualified Code(s): N30.00 - Acute cystitis without hematuria (6) Microcytic anemia: (7) Acute osteomyelitis, pelvis: (8) Gram-positive bacteremia: (9) Septic shock: (10) Stage IV decubitus ulcer: (11) Decubitus ulcer: Qualifiers: Laterality: unspecified laterality Pressure injury location: buttock Pressure injury stage: unspecified pressure injury stage Qualified Code(s): L89.309 - Pressure ulcer of unspecified buttock, unspecified stage (12) Status post excisional debridement: (13) Respiratory failure requiring intubation: Reason for Visit Reason for Visit post code Summary Additional Data Advance directives?: No Discharge Plan Discharge Patient Disposition: Home Condition: Stable Prescriptions: No Action acetaminophen 325 mg Tablet 650 mg PO Q4H PRN (Reason: Pain) magnesium hydroxide [Milk of Magnesia] 400 mg/5 mL Suspension 30 ml PO DAILY PRN (Reason: Constipation) bisacodyl 10 mg Suppository 10 mg VA DAILY PRN (Reason: Constipation) Fleet Enema 19-7 gram/118 mL Enema 118 ml VA DAILY PRN (Reason: Constipation) furosemide [Lasix] 20 mg Tablet 20 mg PO DAILY pantoprazole 20 mg tablet,delayed release (DR/EC) 20 mg PO DAILY bismuth subsalicylate [Pepto-Bismol] 262 mg/15 mL Suspension See Rx Instructions .ROUTE .COMPLEX PRN (Reason: Diarrhea) Rx Instructions: Take 30 ml orally as needed every 1 hour ;do not exceed 8 doses in a 24 hour period nystatin 100,000 unit/gram Powder See Rx Instructions .ROUTE .COMPLEX Rx Instructions: 1 applic topically twice daily: cleanse under both breasts with NS, pat dry. Apply nystatin under both breasts. fluticasone propionate 50 mcg/actuation spray,suspension 1 spray INTRANASAL DAILY mirtazapine 7.5 mg Tablet 7.5 mg PO BEDTIME [place] Cough Drops 5.8 mg Lozenge 5.8 mg MUCOUS MEMBRANE Q4H PRN (Reason: Cough) guaifenesin [Mucinex] 600 mg Tablet Extended Release 12hr 600 mg PO BID Clear Eyes Natural Tears 0.5-0.6 % Drops 1 drp OPHTHALMIC (EYE) TID PRN (Reason: Dry Eyes) Dakin's Solution 0.125 % See Rx Instructions .ROUTE .COMPLEX Rx Instructions: Apply topically every shift mid spine: cleanse with NS and gauze, apply dakins damp gauze to wound bed and cover with dry gauze and secure with tape Robitussin Cough-Sore Throat 325-10 mg/10 mL Liquid 10 ml PO Q6H PRN (Reason: cough or congestion) cyanocobalamin (vitamin B-12) 1,000 mcg capsule 1,000 mcg PO DAILY Qty: 30 0RF ferrous gluconate 324 mg (37.5 mg iron) tablet 324 mg PO DAILY Qty: 30 0RF Normal Saline Flush Syringe 10 ml IV PRN heparin, porcine (PF) 100 unit/mL syringe 500 unit IV TID ertapenem 1 gram recon soln 1 g IM DAILY Invega Sustenna 156 mg/mL syringe 156 mg IM Q30D Eliquis 5 mg tablet 5 mg PO BID Referrals: Meliton Stevens DO [Primary Care Provider] - Patient Instructions: Opioid Safety Coding Level of Care Code Acute Code for [facility] Fwd Diagnoses Cardiac arrest I46.9 Deep vein thrombosis, lower left extremity I82.402 S/P insertion of IVC (inferior vena caval) filter Z95.828 Metabolic acidosis E87.20 Acute cystitis N30.00 Hematuria presence: without hematuria Microcytic anemia D50.9 Acute osteomyelitis, pelvis M86.159 Gram-positive bacteremia R78.81 Septic shock A41.9; R65.21 Stage IV decubitus ulcer L89.94 Decubitus ulcer L89.309 Laterality: unspecified laterality Pressure injury location: buttock Pressure injury stage: unspecified pressure injury stage Status post excisional debridement Z98.890 Respiratory failure requiring intubation J96.90
--- NOTE | 2023-08-20 17:53 | W.PM.EVENTAC ---
Event Note Event Note: Cerebral edema noted on CT head, discussed findings with her brother, brother is opting for hospice care and terminally extubated, ICU nurse and RT updated.
--- NOTE | 2023-08-20 18:10 | PC.NURSE ---
Patient terminally extubated per Dr. Anderson orders who spoke with patients brother at 1807.
[2023-08-20] MEDS: morphine 4 mg/mL SDV 1 mL IVP ×4 (18:13→23:08)
[2023-08-20] MEDS: glycopyrrolate 0.2 mg/mL SDV 2 mL IV (19:01)
[2023-08-20] MEDS: atropine 1% op soln 2 mL Btl 3 DROP SUBLINGUAL (22:04)
[2023-08-21] VITALS (84 sets, daily range): BP systolic 86–129; BP diastolic 51–66; PULSE 80–114; RESP 13; TEMP 37.7–38.8; O2SAT 89–97
[2023-08-21] MEDS: morphine 4 mg/mL SDV 1 mL IVP ×3 (01:46→04:27)
[2023-08-21] MEDS: glycopyrrolate 0.2 mg/mL SDV 2 mL IV (01:46)
--- NOTE | 2023-08-21 01:58 | PC.NURSE ---
Addendum entered by Jessica Patel RN 08/21/23 06:10: Confirming waste of fentanyl & midazolam as posted by Suresh Kan RN. Original Note: Wasted 15ml of Fentanyl and 44mls of Midazolam with Jessica Samuels.
[2023-08-21] MEDS: atropine 1% op soln 2 mL Btl 3 DROP SUBLINGUAL (05:51)
--- NOTE | 2023-08-21 06:07 | PC.NURSE ---
Patient on comfort care measures per protocol. Air hunger treated well with 4mg morphine doses. Patient responds only to oral care. Temp trending down throughout most of shift with peak of 102, currently 100.6.
--- NOTE | 2023-08-21 10:18 | PC.NURSE ---
oral care done turned and repositioned at this time .. no response noted
--- NOTE | 2023-08-21 10:43 | PM.DCS ---
Discharge Providers Date of Admission: 08/18/23 19:26 Date of Discharge: August 21, 2023 Attending Provider at Admission: Emmy Vines MD Attending Provider at Discharge: Emmy Vines MD Primary Care Provider: Meliotn Stevens DO Diagnoses at Discharge Discharge Diagnosis (1) Cardiac arrest: Status: Acute Permanent problem details: Related to aspiration and food, ROSC obtained within 7 minutes (2) Deep vein thrombosis, lower left extremity: Status: Acute (3) S/P insertion of IVC (inferior vena caval) filter: Status: Acute (4) Metabolic acidosis: Status: Acute (5) Acute cystitis: Status: Acute Qualifiers: Hematuria presence: without hematuria Qualified Code(s): N30.00 - Acute cystitis without hematuria (6) Microcytic anemia: Status: Acute (7) Acute osteomyelitis, pelvis: Status: Acute (8) Gram-positive bacteremia: Status: Acute (9) Septic shock: Status: Acute (10) Stage IV decubitus ulcer: Status: Acute (11) Decubitus ulcer: Status: Acute Qualifiers: Laterality: unspecified laterality Pressure injury location: buttock Pressure injury stage: unspecified pressure injury stage Qualified Code(s): L89.309 - Pressure ulcer of unspecified buttock, unspecified stage (12) Status post excisional debridement: Status: Acute (13) Respiratory failure requiring intubation: Status: Acute Reason for Visit Reason for Visit: post code Hospital Course Hospital Course Patient was admitted on 08/18 after an episode of cardiac arrest which was related to aspiration, as per the nursing staff and collateral information patient was eating at the group home when all of a sudden she lost her consciousness, EMS was called, she had CPR and multiple dose of epinephrine given for about 7 minutes before ROSC was obtained, she was intubated by EMS, in the ER patient was put on fentanyl sedative, she was given IV fluid boluses, head CT on admission was unremarkable, patient was diagnosed with septic shock she was recently discharged on IV antibiotics for ESBL UTI and osteomyelitis of her sacral area, we were able to wean off Levophed however failure to extubation was due to not able to follow commands. CT head was repeated which showed cerebral edema likely related to anoxic brain injury. Patient is not following commands, after discussing with the family comfort care were pursued she was terminally extubated, she is currently on nasal cannula, hemodynamically stable still febrile but not able to follow commands, she is in a vegetative state. She will be discharged back to the facility on hospice. We have exchanged her Daley catheter with a new one. Physical Exam Narrative: Dehydrated Not able to follow commands Hemodynamically stable Febrile Sacral area ulcer Daley catheter S1, S2 sinus rhythm Urinary Catheter Management: Daley: Cath Placed During This Visit: yes Reason for Continuing Indwelling Catheter: Accurate Measurement of Urinary Output in Critically Ill Patients Urinary Catheter Date of Insertion: 08/19/23 Urinary Catheter Time of Insertion: 09:19 Discharge Data Studies Completed and Pending Completed Studies During Hospitalization Category Date Time Status CT abdomen pelvis wo con [id number] Routine Cat Scan 08/20/23 12:[address] angio chest PE protcl [id number] Stat Cat Scan 08/18/23 15:[address] head wo con* [id number] Routine Cat Scan 08/20/23 12:[address] head wo con* [id number] Stat Cat Scan 08/18/23 15:28 Completed XR chest 1V portable [id number] Stat Exams 08/18/23 15:28 Completed CV. echo complete* [id number] Routine Ultrasound 08/18/23 19:26 Completed Pending at discharge Category Date Time Status Blood Cultures ([facility]) Routine Lab 08/18/23 16:29 Received Blood Cultures ([facility]) Routine Lab 08/18/23 17:47 Received Sputum Culture and Gram Stain Stat Lab 08/18/23 15:30 Results Sputum Culture and Gram Stain Stat Lab 08/18/23 18:37 Uncollected Urine Culture Stat Lab 08/18/23 18:00 Results Radiology Impressions Chest X-Ray 08/18/23 15:28 IMPRESSION: 1. Endotracheal tube in place with tip approximately 2 cm from the toshia. 2. Right-sided central venous catheter in place with tip in the region of the right atrium. Consider retracting approximately 5 cm to achieve positioning in the SVC. 3. Enteric tube in place with tortuous course, suspected to be related to a moderate-large hiatal hernia with a portion of the gastric body above the diaphragm. Tip of the catheter projects over the mid upper abdomen. If further detail regarding the position of the catheter is clinically warranted, consider CT. ADDENDUM: 08/18/23 0814 The findings were verbally communicated by telephone with MARTHA Gracia at 4:23 PM [employer]GR[employer] on 08/18/2023. The findings were acknowledged and understood. Chest CTA 08/18/23 15:30 IMPRESSION: 1. No acute pulmonary emboli. Atherosclerosis and coronary artery disease. 2. Mild, low density, bilateral pleural effusions. 3. Large, sliding hiatal hernia. NG/OG tube tip within hiatal hernia. 4. Chronic, compression fractures of superior endplates of T9-12 vertebrae. Chronic, healing fracture of manubrium. Acute fractures of left anterior least 1st-7th and right posterior 10th ribs. Chronic, healing fractures of several, right anterior and lateral upright fimbriae ribs. Laboratory Results WBC 11.65 10^3/uL (3.29-11.43) H 08/20/23 05:39 RBC 2.99 10^6/uL (3.85-5.65) L 08/20/23 05:39 Hgb 8.30 g/dL (11.27-16.99) L 08/20/23 05:39 Hct 26.8 % (36-47) L 08/20/23 05:39 MCV 89.6 fl (85-98) 08/20/23 05:39 MCH 27.8 pg (27-33) 08/20/23 05:39 MCHC 31.0 g/dL (30-55) 08/20/23 05:39 RDW 16.4 % (12.1-15.1) H 08/20/23 05:39 Plt Count 355 10^3/cmm (157-399) 08/20/23 05:39 MPV 9.4 fL (7.4-10.4) 08/20/23 05:39 Neut % (Auto) 79.7 % 08/20/23 05:39 Lymph % (Auto) 12.2 % 08/20/23 05:39 Barren % (Auto) 6.5 % 08/20/23 05:39 Eos % (Auto) 0.5 % 08/20/23 05:39 Baso % (Auto) 0.6 % 08/20/23 05:39 Neut # (Auto) 9.28 10^3/uL (1.8-7.7) H 08/20/23 05:39 Lymph # (Auto) 1.4 10^3/uL (0.8-4.8) 08/20/23 05:39 Barren # (Auto) 0.8 10^3/uL (0.2-0.9) 08/20/23 05:39 Eos # (Auto) 0.1 10^3/uL (0.0-0.8) 08/20/23 05:39 Baso # (Auto) 0.1 10^3/uL (0.0-0.1) 08/20/23 05:39 Nucleated RBC % (auto) 0 % 08/20/23 05:39 Total Counted 100 (0-100) 08/18/23 15:44 Atypical Lymphs % 0.0 % (0-5) 08/18/23 15:44 Absolute Neutrophils 14.1 10^3/cmm (1.4-6.5) H 08/18/23 15:44 Segmented Neutrophils 63 % 08/18/23 15:44 Abs Segm Neuts (Man) 12.5 10/cmm (1.6-7.1) H 08/18/23 15:44 Band Neutrophils 8.0 % 08/18/23 15:44 Abs Band Neuts (Man) 1.6 10^3/cmm (0.0-1.2) H 08/18/23 15:44 Absolute Lymphocytes 4.9 10^3/cmm (1.2-3.4) H 08/18/23 15:44 Lymphocytes (Manual) 25 % 08/18/23 15:44 Monocytes (Manual) 1.0 % 08/18/23 15:44 Absolute Monocytes 0.2 10^3/cmm (0.1-0.6) 08/18/23 15:44 Eosinophils (Manual) 0 % 08/18/23 15:44 Absolute Eosinophils 0.0 10^3/cmm (0.0-0.7) 08/18/23 15:44 Basophils (Manual) 0.0 % 08/18/23 15:44 Absolute Basophils 0.0 10^3/cmm (0.0-0.2) 08/18/23 15:44 Metamyelocytes 2.0 % 08/18/23 15:44 Myelocytes 1.0 % 08/18/23 15:44 Nucleated RBCs # 0.0 /100WBC 08/20/23 05:39 Platelet Estimate Increased (Normal) H 08/18/23 15:44 Giant Platelets Trace 08/18/23 15:44 Anisocytosis Trace 08/18/23 15:44 D-Dimer >= 20.00 ug/mLFEU (0-0.59) H 08/18/23 15:44 Specimen Type Arterial 08/20/23 04:40 Sample Site Brachial, right 08/20/23 04:40 ABG pH 7.51 (7.35-7.45) H 08/20/23 04:40 ABG pCO2 38.2 mmHg (35-45) 08/20/23 04:40 ABG pO2 89.6 mmHg (80.0-100.0) 08/20/23 04:40 ABG PO2/FiO2 Ratio 0 08/20/23 04:40 ABG HCO3 30.2 mmol/L (22-26) H 08/20/23 04:40 ABG O2 Saturation > 100.0 08/18/23 15:28 ABG Base Excess 6.6 mmol/L (-2.0-2.0) H 08/20/23 04:40 Derian Test Pos 08/20/23 04:40 A-a O2 Gradient 32.5 mmHg (5-10) H 08/18/23 15:28 Hematocrit 27.2 % (37-47) L 08/20/23 04:40 Hgb O2 Saturation 99.3 % (95-100) 08/18/23 15:28 Carboxyhemoglobin 1.0 %THgb (0.4-20.1) 08/18/23 15:28 Methemoglobin 0.5 % (0.4-1.5) 08/18/23 15:28 Total Hemoglobin 10.2 g/dL (12-16) L 08/18/23 15:28 Sodium 138.0 mmol/L (131-143) 08/18/23 15:28 Potassium 3.7 mmol/L (3.5-5.0) 08/18/23 15:28 Glucose 273.0 mg/dL (70-115) H 08/18/23 15:28 Ionized Calcium 1.2 mmol/L (1.1-1.4) 08/18/23 15:28 O2 Delivery Device Vent 08/20/23 04:40 FiO2 30.0 % 08/20/23 04:40 Tidal Volume 0.36 08/20/23 04:40 PEEP 6.0 cmH20 08/20/23 04:40 Financial Administrator ID [email or web address] 08/20/23 04:40 Sodium 138 mmol/L (136-145) 08/20/23 05:39 Potassium 3.2 mmol/L (3.5-5.1) L 08/20/23 05:39 Chloride 101 mmol/L (98-107) 08/20/23 05:39 Carbon Dioxide 28 mmol/L (22-29) 08/20/23 05:39 Anion Gap 12.2 (5-19) 08/20/23 05:39 BUN 22 mg/dL (8-23) 08/20/23 05:39 Creatinine 0.5 mg/dL (0.5-0.9) 08/20/23 05:39 GFR Calculation Not Reportable 08/20/23 05:39 Glucose 116 mg/dL (65-115) H 08/20/23 05:39 POC Glucose 101 mg/dL (70-110) 08/19/23 23:48 Calculated Osmolality 290 mOsm/kg (285-295) 08/20/23 05:39 Lactate 1.6 mmol/L (0.5-2.2) 08/19/23 12:41 Calcium 8.2 mg/dL (8.5-10.5) L 08/20/23 05:39 Phosphorus 3.6 mg/dL (2.5-4.5) 08/19/23 06:06 Magnesium 2.6 mg/dL (1.7-2.3) H 08/19/23 06:06 Total Bilirubin 0.2 mg/dL (0.15-1.2) 08/20/23 05:39 AST 62 U/L (0-32) H 08/20/23 05:39 ALT 78 U/L (0-33) H 08/20/23 05:39 Alkaline Phosphatase 258 U/L (35-105) H 08/20/23 05:39 Troponin T Baseline 56 ng/L (0-10) H 08/18/23 15:44 Troponin T 120 Minute 96.80 ng/L (0-10) H 08/18/23 17:27 Delta Troponin T 40.80 ABS# (0-10) H* 08/18/23 17:27 Troponin T Hi Sens 6Hr 181.5 ng/L (0-10) H 08/18/23 21:04 Troponin T Hi Sens 6Hr Delta 125.5 ng/L (0-12) H* 08/18/23 21:04 C-Reactive Protein 50.6 mg/L (0.0-4.9) H 08/19/23 06:06 NT-Pro-B Natriuret Pep 221 pg/mL (0-450) 08/18/23 15:44 Total Protein 5.1 g/dL (6.6-8.7) L 08/20/23 05:39 Albumin 2.6 g/dL (3.5-5.2) L 08/20/23 05:39 Globulin 2.5 g/dL (1.3-4.6) 08/20/23 05:39 Procalcitonin 0.05 ng/mL (0-0.5) 08/18/23 15:44 TSH 4.93 uIU/mL (0.27-4.20) H 08/18/23 15:44 Urine Color Yellow (Yellow) 08/18/23 18:00 Urine Appearance Hazy (CLEAR) A 08/18/23 18:00 Urine pH 6.5 (5-7) 08/18/23 18:00 Ur Specific [place] 1.015 (1.005-1.030) 08/18/23 18:00 Urine Protein 3+ (Negative) H 08/18/23 18:00 Urine Glucose (UA) 1+ (Normal) H 08/18/23 18:00 Urine Ketones 1+ (Negative) H 08/18/23 18:00 Urine Blood 3+ (Negative) H 08/18/23 18:00 Urine Nitrate Negative (Negative) 08/18/23 18:00 Urine Bilirubin Neg (Negative) 08/18/23 18:00 Urine Urobilinogen Norm mg/dL (Negative) 08/18/23 18:00 Ur Leukocyte Esterase Negative (Negative) 08/18/23 18:00 Urine RBC >100 /hpf (0-2) H 08/18/23 18:00 Urine WBC 10-15 /hpf (0-5) H 08/18/23 18:00 Ur Squamous Epith Cells 0-4 /hpf (0-5) H 08/18/23 18:00 Amorphous Sediment 3+ /hpf 08/18/23 18:00 Urine Bacteria Trace /hpf (NONE) 08/18/23 18:00 Coronavirus 229E (PCR) Not detected (NOT DETECT) 08/18/23 16:40 Influenza Type A Ag Negative (Negative) 08/18/23 16:40 Influenza Type B Ag Negative (Negative) 08/18/23 16:40 SARS-CoV-2 (PCR) Not detected (NOT DETECT) 08/18/23 16:40 Vitals Last Vital Signs Temp 99.9 F H 08/21/23 09:00 Pulse 89 08/21/23 09:00 Resp 13 08/20/23 15:39 BP 129/52 08/21/23 09:00 Pulse Ox 95 08/21/23 09:00 O2 Del Method Mechanical Ventilation 08/18/23 19:48 FiO2 30 08/20/23 15:39 Discharge Plan Discharge Patient Disposition: [facility]fer [facility] Condition: Critical Prescriptions: Discontinued acetaminophen 325 mg Tablet 650 mg PO Q4H PRN (Reason: Pain) magnesium hydroxide [Milk of Magnesia] 400 mg/5 mL Suspension 30 ml PO DAILY PRN (Reason: Constipation) bisacodyl 10 mg Suppository 10 mg [place] DAILY PRN (Reason: Constipation) Fleet Enema 19-7 gram/118 mL Enema 118 ml [place] DAILY PRN (Reason: Constipation) furosemide [Lasix] 20 mg Tablet 20 mg PO DAILY pantoprazole 20 mg tablet,delayed release (DR/EC) 20 mg PO DAILY bismuth subsalicylate [Pepto-Bismol] 262 mg/15 mL Suspension See Rx Instructions .ROUTE .COMPLEX PRN (Reason: Diarrhea) Rx Instructions: Take 30 ml orally as needed every 1 hour ;do not exceed 8 doses in a 24 hour period nystatin 100,000 unit/gram Powder See Rx Instructions .ROUTE .COMPLEX Rx Instructions: 1 applic topically twice daily: cleanse under both breasts with NS, pat dry. Apply nystatin under both breasts. fluticasone propionate 50 mcg/actuation spray,suspension 1 spray INTRANASAL DAILY mirtazapine 7.5 mg Tablet 7.5 mg PO BEDTIME [place] Cough Drops 5.8 mg Lozenge 5.8 mg MUCOUS MEMBRANE Q4H PRN (Reason: Cough) guaifenesin [Mucinex] 600 mg Tablet Extended Release 12hr 600 mg PO BID Clear Eyes Natural Tears 0.5-0.6 % Drops 1 drp OPHTHALMIC (EYE) TID PRN (Reason: Dry Eyes) Dakin's Solution 0.125 % See Rx Instructions .ROUTE .COMPLEX Rx Instructions: Apply topically every shift mid spine: cleanse with NS and gauze, apply dakins damp gauze to wound bed and cover with dry gauze and secure with tape Robitussin Cough-Sore Throat 325-10 mg/10 mL Liquid 10 ml PO Q6H PRN (Reason: cough or congestion) cyanocobalamin (vitamin B-12) 1,000 mcg capsule 1,000 mcg PO DAILY Qty: 30 0RF ferrous gluconate 324 mg (37.5 mg iron) tablet 324 mg PO DAILY Qty: 30 0RF Normal Saline Flush Syringe 10 ml IV PRN heparin, porcine (PF) 100 unit/mL syringe 500 unit IV TID ertapenem 1 gram recon soln 1 g IM DAILY Invega Sustenna 156 mg/mL syringe 156 mg IM Q30D Eliquis 5 mg tablet 5 mg PO BID Discharge Orders: Discharge Order (Routine); Ordered 08/21/23 Ordered By: Emmy Vines Referrals: Meliton Stevens DO [Primary Care Provider] - Discharge Attestations Time Spent in Discharge Care*: greater than 30 min Quality Metrics Clinical Quality Measures [ No reported AMI, CVA or VTE this stay] Coding Level of Care Code Acute Code for g Fwd Diagnoses Cardiac arrest I46.9 Deep vein thrombosis, lower left extremity I82.402 S/P insertion of IVC (inferior vena caval) filter Z95.828 Metabolic acidosis E87.20 Acute cystitis N30.00 Hematuria presence: without hematuria Microcytic anemia D50.9 Acute osteomyelitis, pelvis M86.159 Gram-positive bacteremia R78.81 Septic shock A41.9; R65.21 Stage IV decubitus ulcer L89.94 Decubitus ulcer L89.309 Laterality: unspecified laterality Pressure injury location: buttock Pressure injury stage: unspecified pressure injury stage Status post excisional debridement Z98.890 Respiratory failure requiring intubation J96.90
--- NOTE | 2023-08-21 13:44 | PC.NURSE ---
report to [facility] [address] .. rickey owens here transport back
== END 2023-08-21 13:40 | disposition hospice, home (50) | DRG 871 ==
LOC: ER 17:54 → ICU 18:51
PROVIDERS: Admitting Provider Internal Medicine; Emergency Provider Family Medicine; PCP Internal Medicine; Visit Provider Internal Medicine
DX: A41.9 Sepsis, unspecified organism (principal); G93.6 Cerebral edema; L89.154 Pressure ulcer of sacral region, stage 4; I46.9 Cardiac arrest, cause unspecified; R65.21 Severe sepsis with septic shock; M86.18 Other acute osteomyelitis, other site; G93.40 Encephalopathy, unspecified; N30.00 Acute cystitis without hematuria; Z16.12 Extended spectrum beta lactamase (ESBL) resistance; E87.20 Acidosis, unspecified; Z96.0 Presence of urogenital implants; F20.9 Schizophrenia, unspecified; E86.0 Dehydration; D50.9 Iron deficiency anemia, unspecified; T18.128A Food in esophagus causing other injury, initial encounter; B96.89 Other specified bacterial agents as the cause of diseases classified elsewhere; Z11.52 Encounter for screening for COVID-19; Z79.01 Long term (current) use of anticoagulants; Z86.718 Personal history of other venous thrombosis and embolism; Z95.828 Presence of other vascular implants and grafts; Z51.5 Encounter for palliative care
CPT/HCPCS: 36415; 36416; 36556; 36592; 36600; 51702; 70450; 71045; 71275; 74176; 80048; 80051; 80053; 81001; 82330; 82803; 82805; 82962; 83605; 83735; 83880; 84100; 84145; 84443; 84484; 85007; 85025; 85378; 86140; 87040; 87070; 87077; 87086; 87186; 87205; 87635; 87804; 93005; 93306; 94002; 94003; 94799; 96365; 96372; 96375; 96376; 99291; C9113; J1650; J1885; J1940; J2185; J2250; J2270; J2543; J3010; J3370; J3490; J7030; J7050; J7070; Q9967